=== PATIENT | female | born 1940 | race Caucasian/White ===

== ENCOUNTER 2020-02-17 07:22 | Outpatient (REF) | payer MEDICARE, SELFPAY ==
[2020-02-17 11:33] LABS: MANUAL DIFF FLAG NO
[2020-02-17 11:40] LABS: Basophils Percent Auto 0.7 % (0-2); Eosinophils Absolute Auto 0.1 X10*3/uL (0.0-0.4); Eosinophils Percent Auto 2.3 % (0-4); Hematocrit 43.1 % (37-47); Hemoglobin 13.9 g/dl (12.0-16.0); Imm Gran Abs Auto 0.02 X10*3/uL (0.00-0.03); Imm Gran Pct Auto 0.3 % (0.0-0.4); Lymphocytes Absolute Auto 2.1 X10*3/uL (1.2-4.9); Lymphocytes Percent Auto 33.5 % (20-40); Mean Corpuscular HGB Conc 32.3 g/dl (31.0-35.0); Mean Corpuscular Hemoglobin 33.3 pg (27.0-33.0); Mean Corpuscular Volume 103.1 fL (80-98); Mean Platelet Volume 11.2 fL (9.4-12.3); Monocytes Absolute Auto 0.5 X10*3/uL (0.1-1.2); Neutrophils Absolute Auto 3.4 X10*3/uL (2.0-8.3); Neutrophils Percent Auto 55.2 % (45-73); Platelet Count 276 X10*3/uL (160-400); Red Blood Count 4.18 X10*6/uL (4.20-5.50); Red Cell Distribution Width 12.4 % (11.0-16.0); White Blood Count 6.2 X10*3/uL (4.8-10.8)
[2020-02-17 12:07] LABS: Alanine Aminotransferase 15 U/L (0-31); Albumin Level 4.4 g/dL (3.5-5.0); Alkaline Phosphatase 83 U/L (39-117); Anion Gap 14 (12-20); Aspartate Amino Transferase 15 U/L (5-31); Bilirubin Total 0.5 mg/dL (0.0-1.0); Blood Urea Nitrogen 13 mg/dL (9-16); Calcium 9.7 mg/dL (8.4-10.2); Carbon Dioxide 32 mmol/L (22-29); Chloride 105 mmol/L (96-108); Cholesterol 204 mg/dL; Estimated Glomerular Filt Rate > 60; Glucose Random 99 mg/dL (60-115); HDL Cholesterol 63 mg/dL; LDL Cholesterol Calculated 104 mg/dl; Potassium 4.9 mmol/l (3.3-5.1); Sodium 146 mmol/L (135-145); Total Protein 6.8 g/dL (6.5-8.0); Triglycerides 187 mg/dL
[2020-02-17 12:10] LABS: Vitamin D 25-OH Total 35.4 ng/mL (>30)
== END 2020-02-17 07:23 | disposition home or self-care (01) ==
LOC: HO.HMGCLDS 07:22
PROVIDERS: PCP Internal Medicine Medical Oncology; Visit Provider Internal Medicine Medical Oncology
DX: E78.5 Hyperlipidemia, unspecified (principal); K21.9 Gastro-esophageal reflux disease without esophagitis; K58.9 Irritable bowel syndrome, unspecified
CPT/HCPCS: 36415; 80053; 80061; 82306; 85025

== ENCOUNTER 2020-02-24 11:48 | Outpatient (REF) | payer MEDICARE, SELFPAY ==
[2020-02-24 14:15] LABS: Free T4 (Free Thyroxine) 1.21 ng/dL (0.71-1.85)
== END 2020-02-24 11:49 | disposition home or self-care (01) ==
LOC: HO.10HDL 11:48
PROVIDERS: Visit Provider Internal Medicine Medical Oncology
DX: E78.5 Hyperlipidemia, unspecified (principal); E03.9 Hypothyroidism, unspecified; K21.9 Gastro-esophageal reflux disease without esophagitis; K44.9 Diaphragmatic hernia without obstruction or gangrene
CPT/HCPCS: 36415; 84439; 84443

== ENCOUNTER 2020-06-12 08:56 | Outpatient (REF) | payer MEDICARE, SELFPAY ==
[2020-06-12 09:31] LABS: MANUAL DIFF FLAG NO
[2020-06-12 09:38] LABS: Basophils Percent Auto 0.5 % (0-2); Eosinophils Absolute Auto 0.2 X10*3/uL (0.0-0.4); Eosinophils Percent Auto 4.1 % (0-4); Hematocrit 41.1 % (37-47); Hemoglobin 13.7 g/dl (12.0-16.0); Imm Gran Abs Auto 0.01 X10*3/uL (0.00-0.03); Imm Gran Pct Auto 0.2 % (0.0-0.4); Lymphocytes Absolute Auto 1.8 X10*3/uL (1.2-4.9); Mean Corpuscular HGB Conc 33.3 g/dl (31.0-35.0); Mean Corpuscular Hemoglobin 33.3 pg (27.0-33.0); Mean Corpuscular Volume 99.8 fL (80-98); Mean Platelet Volume 10.6 fL (9.4-12.3); Monocytes Absolute Auto 0.5 X10*3/uL (0.1-1.2); Monocytes Percent Auto 8.7 % (2-11); Neutrophils Absolute Auto 3.3 X10*3/uL (2.0-8.3); Neutrophils Percent Auto 55.5 % (45-73); Platelet Count 249 X10*3/uL (160-400); Red Blood Count 4.12 X10*6/uL (4.20-5.50); Red Cell Distribution Width 12.5 % (11.0-16.0); White Blood Count 5.9 X10*3/uL (4.8-10.8)
[2020-06-12 09:59] LABS: Alanine Aminotransferase 9 U/L (0-31); Albumin Level 4.2 g/dL (3.5-5.0); Alkaline Phosphatase 72 U/L (39-117); Anion Gap 11 (12-20); Aspartate Amino Transferase 13 U/L (5-31); Bilirubin Total 0.7 mg/dL (0.0-1.0); Blood Urea Nitrogen 16 mg/dL (9-16); Calcium 9.8 mg/dL (8.4-10.2); Carbon Dioxide 30 mmol/L (22-29); Chloride 105 mmol/L (96-108); Cholesterol 182 mg/dL; Estimated Glomerular Filt Rate > 60; Glucose Fasting 102 mg/dL (60-99); HDL Cholesterol 56 mg/dL; LDL Cholesterol Calculated 94 mg/dl; Potassium 4.4 mmol/L (3.3-5.1); Sodium 142 mmol/L (135-145); Total Protein 6.5 g/dL (6.5-8.0); Triglycerides 163 mg/dL
[2020-06-12 10:14] LABS: Free T4 (Free Thyroxine) 1.29 ng/dL (0.71-1.85); Thyroid Stimulating Hormone 0.11 uIU/mL (0.32-4.0)
== END 2020-06-12 08:57 | disposition home or self-care (01) ==
LOC: HO.LAB 08:56
PROVIDERS: PCP Internal Medicine Medical Oncology; Visit Provider Internal Medicine Medical Oncology
DX: E78.5 Hyperlipidemia, unspecified (principal); E03.9 Hypothyroidism, unspecified; K21.9 Gastro-esophageal reflux disease without esophagitis; K44.9 Diaphragmatic hernia without obstruction or gangrene
CPT/HCPCS: 36415; 80053; 80061; 84439; 84443; 85025

== ENCOUNTER 2020-07-01 08:18 | Outpatient (REF) | payer MEDICARE, SELFPAY ==
--- NOTE | ~2020-07-01 | US_ITS ---
EXAMINATION: US ABDOMEN COMPLETE CLINICAL INFORMATION: Right upper quadrant abdominal pain. COMPARISON: CT abdomen and pelvis with contrast dated 12/27/2015. Ultrasound abdomen complete dated 12/23/2015 and 10/07/2014. TECHNIQUE: Real-time imaging of the abdominal viscera. FINDINGS: PANCREAS: The main pancreatic duct is slightly dilated measuring 0.4 cm. Pancreas is otherwise normal. This is similar to previous CT scan from December 2015. ABDOMINAL AORTA: The proximal, mid, and distal segments are normal in caliber. INFERIOR VENA CAVA: Visualized portions are normal. LIVER: Normal. The liver is normal in size. The liver contour is normal. Parenchymal echogenicity is normal. No focal hepatic lesion. There is no intrahepatic biliary duct dilatation seen. GALLBLADDER: Normal. The gallbladder is physiologically distended without evidence of stones, sludge, polyps, wall thickening or pericholecystic fluid. COMMON BILE DUCT: Normal in caliber measuring 0.58 cm in diameter. RIGHT KIDNEY: Normal. No hydronephrosis. No renal calculi or focal parenchymal lesions. The kidney measures 10.0 cm in maximum dimension. LEFT KIDNEY: Normal. No hydronephrosis. No renal calculi or focal parenchymal lesions. The kidney measures 10.1 cm in maximum dimension. SPLEEN: Normal. The spleen measures 10.3 cm in maximum dimension. FREE FLUID: None. US/US abdomen complete IMPRESSION: Slightly prominent main pancreatic duct similar to previous CT scan December 2015. Otherwise unremarkable exam.
== END 2020-07-01 08:19 | disposition home or self-care (01) ==
LOC: HO.HMGCX 08:18
PROVIDERS: Visit Provider Internal Medicine Medical Oncology
DX: R10.11 Right upper quadrant pain (principal)
CPT/HCPCS: 76700

== ENCOUNTER 2020-07-28 10:25 | Outpatient (REF) | payer MEDICARE, SELFPAY ==
[2020-07-28 13:13] LABS: Erythrocyte Sedimentation Rate 9 MM/HR (0-20)
== END 2020-07-28 10:26 | disposition home or self-care (01) ==
LOC: HO.LAB 10:25
PROVIDERS: PCP Internal Medicine Medical Oncology; Referring Provider Ophthalmology Glaucoma Specialist; Visit Provider Internal Medicine Medical Oncology
DX: E78.5 Hyperlipidemia, unspecified (principal)
CPT/HCPCS: 36415; 85652

== ENCOUNTER 2020-08-04 09:34 | Outpatient (REF) | payer MEDICARE, SELFPAY ==
--- NOTE | ~2020-08-04 | MM_ITS ---
EXAMINATION: MM SCREENING DIGITAL BREAST TOMOSYNTHESIS, BILATERAL CLINICAL INFORMATION: Screening. Asymptomatic. The lifetime risk of breast cancer based on the Tyrer-Cuzick Model is 1.7%. COMPARISON: Mammography: August 02, 2019 and studies dating back to January 08, 2015 TECHNIQUE: Digital breast tomosynthesis is performed in both the craniocaudal and mediolateral oblique views along with computer-aided detection (CAD). Synthesized 2D images are generated from the tomosynthesis. FINDINGS: There are scattered areas of fibroglandular density (ACR BI-RADS breast composition Category b). There are no significant masses, abnormal calcifications, or other abnormalities. MM/MM tomosynthesis screening BI IMPRESSION: There are no significant changes from prior study. ASSESSMENT: BI-RADS 1: Negative RECOMMENDATION: Routine annual mammography screening. This patient's information was entered into a reminder system with a target due date for their next mammogram.
== END 2020-08-04 09:35 | disposition home or self-care (01) ==
LOC: HO.MAMMO 09:34
PROVIDERS: Visit Provider Internal Medicine Medical Oncology
DX: Z12.31 Encounter for screening mammogram for malignant neoplasm of breast (principal)
CPT/HCPCS: 77063; 77067

== ENCOUNTER 2020-10-19 07:27 | Outpatient (REF) | payer MEDICARE, SELFPAY ==
[2020-10-19 11:25] LABS: MANUAL DIFF FLAG NO
[2020-10-19 11:39] LABS: Basophils Percent Auto 0.3 % (0-2); Eosinophils Absolute Auto 0.1 X10*3/uL (0.0-0.4); Eosinophils Percent Auto 1.9 % (0-4); Hematocrit 40.5 % (37-47); Hemoglobin 13.4 g/dl (12.0-16.0); Imm Gran Abs Auto 0.01 X10*3/uL (0.00-0.03); Imm Gran Pct Auto 0.2 % (0.0-0.4); Lymphocytes Absolute Auto 1.9 X10*3/uL (1.2-4.9); Lymphocytes Percent Auto 31.6 % (20-40); Mean Corpuscular HGB Conc 33.1 g/dl (31.0-35.0); Mean Corpuscular Hemoglobin 32.6 pg (27.0-33.0); Mean Corpuscular Volume 98.5 fL (80-98); Mean Platelet Volume 11.4 fL (9.4-12.3); Monocytes Absolute Auto 0.5 X10*3/uL (0.1-1.2); Monocytes Percent Auto 7.6 % (2-11); Neutrophils Absolute Auto 3.5 X10*3/uL (2.0-8.3); Neutrophils Percent Auto 58.4 % (45-73); Platelet Count 243 X10*3/uL (160-400); Red Blood Count 4.11 X10*6/uL (4.20-5.50); Red Cell Distribution Width 12.4 % (11.0-16.0); White Blood Count 5.9 X10*3/uL (4.8-10.8)
[2020-10-19 11:54] LABS: Alanine Aminotransferase 10 U/L (0-31); Albumin Level 4.1 g/dL (3.5-5.0); Alkaline Phosphatase 69 U/L (39-117); Anion Gap 13 (12-20); Aspartate Amino Transferase 14 U/L (5-31); Blood Urea Nitrogen 15 mg/dL (9-16); Calcium 9.8 mg/dL (8.4-10.2); Carbon Dioxide 27 mmol/L (22-29); Chloride 106 mmol/L (96-108); Cholesterol 179 mg/dL; Estimated Glomerular Filt Rate > 60; Glucose Fasting 102 mg/dL (60-99); HDL Cholesterol 55 mg/dL; LDL Cholesterol Calculated 99 mg/dl; Potassium 4.3 mmol/L (3.3-5.1); Sodium 142 mmol/L (135-145); Total Protein 6.3 g/dL (6.5-8.0); Triglycerides 128 mg/dL
[2020-10-19 12:13] LABS: Bilirubin Total 0.6 mg/dL (0.0-1.0)
[2020-10-19 12:16] LABS: Free T4 (Free Thyroxine) 1.09 ng/dL (0.71-1.85); Thyroid Stimulating Hormone 0.09 uIU/mL (0.32-4.0)
== END 2020-10-19 07:28 | disposition home or self-care (01) ==
LOC: HO.HMGCLDS 07:27
PROVIDERS: PCP Internal Medicine Medical Oncology; Visit Provider Internal Medicine Medical Oncology
DX: E78.5 Hyperlipidemia, unspecified (principal); E03.9 Hypothyroidism, unspecified; K57.92 Diverticulitis of intestine, part unspecified, without perforation or abscess without bleeding; K58.9 Irritable bowel syndrome, unspecified
CPT/HCPCS: 36415; 80053; 80061; 84439; 84443; 85025

== ENCOUNTER 2020-11-07 11:56 | Outpatient (REF) | payer MEDICARE, SELFPAY ==
[2020-11-07 13:41] LABS: Appearance Urine HAZY; Color Urine YELLOW; Glucose Urine UA NEG (NEG); Leukocyte Esterase Urine 1+ (NEG); Nitrite Urine NEG (NEG); Specific Gravity - Urine 1.015 (1.005-1.025); Urine Blood NEG (NEG); Urine Ketones NEG (NEG); Urine Protein NEG (NEG-TRACE)
[2020-11-07 13:49] LABS: RBC Urine 0-2 /HPF (0)
[2020-11-07 13:50] LABS: Amorphous Sediment Urine TRACE /LPF; Bacteria Urine 2+ /LPF; Mucus Urine 1+ /LPF; Squamous Epithelial Cell Urine 3+ /LPF
== END 2020-11-07 11:57 | disposition home or self-care (01) ==
LOC: HO.HMGCLNP 11:56
PROVIDERS: Visit Provider Physician Assistant Medical
DX: R19.7 Diarrhea, unspecified (principal)
CPT/HCPCS: 81001

== ENCOUNTER 2020-11-10 11:58 | Outpatient (REF) | payer MEDICARE, SELFPAY ==
[2020-11-10 14:20] LABS: Appearance Urine CLEAR; Color Urine STRAW; Glucose Urine UA NEG (NEG); Leukocyte Esterase Urine NEG (NEG); Nitrite Urine NEG (NEG); Specific Gravity - Urine <= 1.005 (1.005-1.025); Urine Blood NEG (NEG); Urine Ketones NEG (NEG); Urine Protein NEG (NEG-TRACE)
== END 2020-11-10 11:59 | disposition home or self-care (01) ==
LOC: HO.HMGCLDS 11:58
PROVIDERS: Physician Assistant Medical; PCP Internal Medicine Medical Oncology; Visit Provider Internal Medicine Medical Oncology
DX: Z13.89 Encounter for screening for other disorder (principal)
CPT/HCPCS: 81003; 87086

== ENCOUNTER 2020-11-10 15:25 | Emergency (ER) | payer MEDICARE, SELFPAY ==
[2020-11-10 15:48] VITALS: BP 149/74; PULSE 70; RESP 18; TEMP 36.8; O2SAT 95; BMI 28.1
[2020-11-10 16:20] LABS: MANUAL DIFF FLAG NO
[2020-11-10 16:22] LABS: Appearance Urine CLEAR; Color Urine STRAW; Glucose Urine UA NEG (NEG); Leukocyte Esterase Urine NEG (NEG); Nitrite Urine NEG (NEG); Specific Gravity - Urine <= 1.005 (1.005-1.025); Urine Blood NEG (NEG); Urine Ketones NEG (NEG); Urine Protein NEG (NEG-TRACE)
[2020-11-10 16:22] LABS: Basophils Percent Auto 0.4 % (0-2); Eosinophils Absolute Auto 0.1 X10*3/uL (0.0-0.4); Eosinophils Percent Auto 1.5 % (0-4); Hematocrit 36.6 % (37-47); Hemoglobin 12.5 g/dl (12.0-16.0); Imm Gran Abs Auto 0.02 X10*3/uL (0.00-0.03); Imm Gran Pct Auto 0.3 % (0.0-0.4); Lymphocytes Absolute Auto 1.8 X10*3/uL (1.2-4.9); Lymphocytes Percent Auto 22.4 % (20-40); Mean Corpuscular HGB Conc 34.2 g/dl (31.0-35.0); Mean Corpuscular Hemoglobin 32.6 pg (27.0-33.0); Mean Corpuscular Volume 95.6 fL (80-98); Mean Platelet Volume 10.7 fL (9.4-12.3); Monocytes Absolute Auto 0.7 X10*3/uL (0.1-1.2); Neutrophils Absolute Auto 5.2 X10*3/uL (2.0-8.3); Neutrophils Percent Auto 66.4 % (45-73); Platelet Count 251 X10*3/uL (160-400); Red Blood Count 3.83 X10*6/uL (4.20-5.50); Red Cell Distribution Width 12.2 % (11.0-16.0); White Blood Count 7.9 X10*3/uL (4.8-10.8)
[2020-11-10 16:38] LABS: Alanine Aminotransferase 7 U/L (0-31); Albumin Level 4.1 g/dL (3.5-5.0); Alkaline Phosphatase 73 U/L (39-117); Anion Gap 10 (12-20); Aspartate Amino Transferase 11 U/L (5-31); Bilirubin Total 0.3 mg/dL (0.0-1.0); Blood Urea Nitrogen 8 mg/dL (9-16); Calcium 9.4 mg/dL (8.4-10.2); Carbon Dioxide 28 mmol/L (22-29); Chloride 107 mmol/L (96-108); Creatinine Clr Calc Pharmacy 59.3; Estimated Glomerular Filt Rate > 60; Glucose Random 114 mg/dL (60-115); Potassium 4.1 mmol/L (3.3-5.1); Sodium 141 mmol/L (135-145); Total Protein 6.4 g/dL (6.5-8.0)
--- NOTE | 2020-11-10 19:52 | ED.ABDPAIN ---
HPI - Abdominal Pain General Chief Complaint: Abdominal Pain Stated Complaint: STOMACH PAIN DIARRHEA Time Seen by Provider: 11/10/20 19:52 Source: patient Mode of arrival: ambulatory Limitations: no limitations History of Present Illness HPI narrative: Patient complain lower abdominal cramps with diarrhea for last 1 week with history of IBS no nausea no vomiting no fever or chills patient tried Imodium without much relief no fever no chills no blood in the stool Related Data Previous Rx's Medication Instructions Recorded loperamide 2 mg capsule 2 mg PO QID PRN #30 cap 11/07/20 dicyclomine 20 mg tablet 20 mg PO QID PRN #20 tab 11/10/20 Allergies Allergy/AdvReac Type Severity Reaction Status Date / Time fentanyl Allergy Unknown Patient Verified 11/10/20 15:48 stated her heart stopped morphine Allergy Unknown Unknown Verified 11/10/20 15:48 No Known Allergies Allergy Verified 11/10/20 15:48 Review of Systems Review of Systems Yes all other systems are reviewed and are negative Physical Exam Vital Signs: Vital Signs: Last Vital Signs Temp 98.2 F 11/10/20 21:20 Pulse 60 11/10/20 21:20 Resp 16 11/10/20 21:20 BP 164/67 H 11/10/20 21:20 Pulse Ox 97 11/10/20 21:20 Body Mass Index 28.1 Appearance: Alert. Oriented X3. No acute distress. Eyes: No pallor or icterus ENT: Pharynx normal. Oral Mucosa moist Neck: Normal inspection. Neck supple. CVS: Normal heart rate and rhythm. Pulses normal. Respiratory: No respiratory distress. Equal air entry bilateral, no wheezing/rales/rhonchi Abdomen: Soft diffuse mild tenderness. Bowel sounds are present, no mass palpable, no CVA tenderness Skin: Skin warm and dry. Normal skin color. Normal skin turgor. Extremities: No lower extremity edema. No calf tenderness Neuro: Oriented X 3. Course Reevaluation(s) Reevaluation #1: Patient feeling much better now taking p.o. fluids cramping has decreased after taking Bentyl discharge patient home on Bentyl. No bowel movement in the ER Time: 21:43 MDM - Abdominal Pain Lab Data Attestation: I reviewed the patient's lab results. Result diagrams: 11/10/20 16:09 11/10/20 16:09 Labs: Lab Results 11/10/20 11/10/20 11/10/20 Range/Units 16:05 16:09 16:09 WBC 7.9 (4.8-10.8) X10*3/uL RBC 3.83 L (4.20-5.50) X10*6/uL Hgb 12.5 (12.0-16.0) g/dl Hct 36.6 L (37-47) % MCV 95.6 (80-98) fL MCH 32.6 (27.0-33.0) pg MCHC 34.2 (31.0-35.0) g/dl RDW 12.2 (11.0-16.0) % Plt Count 251 (160-400) X10*3/uL MPV 10.7 (9.4-12.3) fL Immature Gran % (Auto) 0.3 (0.0-0.4) % Neut % (Auto) 66.4 (45-73) % Lymph % (Auto) 22.4 (20-40) % [place] % (Auto) 9.0 (2-11) % Eos % (Auto) 1.5 (0-4) % Baso % (Auto) 0.4 (0-2) % Lymph # (Auto) 1.8 (1.2-4.9) X10*3/uL [place] # (Auto) 0.7 (0.1-1.2) X10*3/uL Eos # (Auto) 0.1 (0.0-0.4) X10*3/uL Baso # (Auto) 0.0 (0.0-0.2) X10*3/uL Abs Immat Gran (auto) 0.02 (0.00-0.03) X10*3/uL Absolute Neuts (auto) 5.2 (2.0-8.3) X10*3/uL Absolute Nucleated RBC 0.000 (0.0-0.012) X10*3/uL Nucleated RBC % (auto) 0.0 (0.0-0.2) /100WBC Sodium 141 (135-145) mmol/L Potassium 4.1 (3.3-5.1) mmol/L Chloride 107 (96-108) mmol/L Carbon Dioxide 28 (22-29) mmol/L Anion Gap 10 L (12-20) BUN 8 L (9-16) mg/dL Creatinine 0.80 (0.5-1.4) mg/dL Estim Creat Clear Calc 59.3 Estimated GFR > 60 Random Glucose 114 (60-115) mg/dL Calcium 9.4 (8.4-10.2) mg/dL Total Bilirubin 0.3 (0.0-1.0) mg/dL AST 11 (5-31) U/L ALT 7 (0-31) U/L Alkaline Phosphatase 73 (39-117) U/L Total Protein 6.4 L (6.5-8.0) g/dL Albumin 4.1 (3.5-5.0) g/dL Urine Color STRAW Urine Appearance CLEAR Urine pH 6.0 (5.0-8.0) Ur Specific Orange <= 1.005 (1.005-1.025) Urine Protein NEG (NEG-TRACE) MG/DL Urine Glucose (UA) NEG (NEG) MG/DL Urine Ketones NEG (NEG) MG/DL Urine Blood NEG (NEG) Urine Nitrite NEG (NEG) Ur Leukocyte Esterase NEG (NEG) Discharge Plan Discharge Clinical Impression: Irritable bowel syndrome Qualifiers: Irritable bowel syndrome type: with diarrhea Qualified Code(s): K58.0 - Irritable bowel syndrome with diarrhea Patient Disposition: Home, Self-Care Instructions: Irritable Bowel Syndrome (ED) Additional Instructions: Drink plenty of fluids and take medication as prescribed and 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 Prescriptions: New dicyclomine 20 mg tablet 20 mg PO QID PRN (Reason: abdominal pain) Qty: 20 RF: 0 No Action loperamide 2 mg capsule 2 mg PO QID PRN (Reason: loose stool) Qty: 30 RF: 0 Interventions: ED Discharge Assessment Last Done: 11/10/20 21:54 Discharge Date/Time: 11/10/20 22:04 [facility] Past Medical History Medical History Diverticulitis IBS (irritable bowel syndrome) Social History Social History Alcohol intake: current Alcohol intake frequency: holidays/special occasions only Alcohol type: wine Patient Tobacco Use Status: Former Tobacco user Use of substances other than those prescribed or required for medical reasons: No Advance Directives: No Advance Directives Information Provided: Yes
[2020-11-10 20:00] VITALS: BP 170/76; PULSE 69; RESP 18; TEMP 36.8; O2SAT 98
[2020-11-10] MEDS: Dicyclomine HCl 10 MG CAPSULE 20 MG PO (20:10)
--- NOTE | 2020-11-10 20:10 | PC.NURSE ---
patient a&ox3, vitals stable, pt c/o pain to mid abdomen, pt medicated per order, will continue to monitor.
[2020-11-10 21:20] VITALS: BP 164/67; PULSE 60; RESP 16; TEMP 36.8; O2SAT 97
--- NOTE | 2020-11-10 21:46 | PC.NURSE ---
patient a&ox3, pt states her abd pain is unchanged she still has 5/10 pain, pt states it waxes and wanes. son is at bedside, will continue to monitor.
== END 2020-11-10 22:04 | disposition home or self-care (01) ==
PROVIDERS: Emergency Provider Internal Medicine; PCP Internal Medicine Medical Oncology
DX: K58.0 Irritable bowel syndrome with diarrhea (principal); R10.9 Unspecified abdominal pain; R19.7 Diarrhea, unspecified; Z79.899 Other long term (current) drug therapy; Z87.891 Personal history of nicotine dependence
CPT/HCPCS: 36415; 80053; 81003; 85025; 87086; 99283; 99284

== ENCOUNTER 2020-11-27 10:12 | Outpatient (REF) | payer MEDICARE, SELFPAY ==
[2020-11-27 13:43] LABS: Basophils Percent Auto 0.5 % (0-2); Eosinophils Absolute Auto 0.1 X10*3/uL (0.0-0.4); Eosinophils Percent Auto 1.4 % (0-4); Hematocrit 36.4 % (37-47); Hemoglobin 12.2 g/dl (12.0-16.0); Imm Gran Abs Auto 0.02 X10*3/uL (0.00-0.03); Imm Gran Pct Auto 0.3 % (0.0-0.4); Lymphocytes Absolute Auto 1.5 X10*3/uL (1.2-4.9); Lymphocytes Percent Auto 22.7 % (20-40); MANUAL DIFF FLAG NO; Mean Corpuscular HGB Conc 33.5 g/dl (31.0-35.0); Mean Corpuscular Hemoglobin 32.5 pg (27.0-33.0); Mean Corpuscular Volume 97.1 fL (80-98); Mean Platelet Volume 11.3 fL (9.4-12.3); Monocytes Absolute Auto 0.5 X10*3/uL (0.1-1.2); Monocytes Percent Auto 7.9 % (2-11); Neutrophils Absolute Auto 4.3 X10*3/uL (2.0-8.3); Neutrophils Percent Auto 67.2 % (45-73); Platelet Count 322 X10*3/uL (160-400); Red Blood Count 3.75 X10*6/uL (4.20-5.50); Red Cell Distribution Width 12.8 % (11.0-16.0); White Blood Count 6.4 X10*3/uL (4.8-10.8)
[2020-11-27 14:24] LABS: Alanine Aminotransferase 12 U/L (0-31); Alkaline Phosphatase 82 U/L (39-117); Anion Gap 13 (12-20); Aspartate Amino Transferase 12 U/L (5-31); Bilirubin Total 0.5 mg/dL (0.0-1.0); Blood Urea Nitrogen 11 mg/dL (9-16); Calcium 9.7 mg/dL (8.4-10.2); Carbon Dioxide 27 mmol/L (22-29); Chloride 105 mmol/L (96-108); Cholesterol 160 mg/dL; Estimated Glomerular Filt Rate > 60; Glucose Fasting 97 mg/dL (60-99); HDL Cholesterol 43 mg/dL; LDL Cholesterol Calculated 88 mg/dl; Potassium 4.3 mmol/L (3.3-5.1); Sodium 141 mmol/L (135-145); Total Protein 6.4 g/dL (6.5-8.0); Triglycerides 149 mg/dL
[2020-11-27 14:30] LABS: Erythrocyte Sedimentation Rate 13 MM/HR (0-20)
[2020-11-27 14:46] LABS: Thyroid Stimulating Hormone 1.22 uIU/mL (0.32-4.0)
== END 2020-11-27 10:13 | disposition home or self-care (01) ==
LOC: HO.10HDL 10:12
PROVIDERS: Visit Provider Internal Medicine Medical Oncology
DX: E78.5 Hyperlipidemia, unspecified (principal); E66.3 Overweight
CPT/HCPCS: 36415; 80053; 80061; 84439; 84443; 85025; 85652

== ENCOUNTER 2020-12-04 10:49 | Outpatient (REF) | payer MEDICARE, SELFPAY ==
[2020-12-04 15:12] LABS: CDiff Gene PCR NEGATIVE (Negative)
[2020-12-04 15:45] LABS: Leukocytes Stool Qualitative NEGATIVE (NEGATIVE)
== END 2020-12-04 10:50 | disposition home or self-care (01) ==
LOC: HO.HMGCLNP 10:49
PROVIDERS: Visit Provider Internal Medicine
DX: R19.7 Diarrhea, unspecified (principal)
CPT/HCPCS: 87045; 87046; 87177; 87209; 87329; 87493; 89055

== ENCOUNTER 2021-01-22 07:59 | Outpatient (REF) | payer MEDICARE, SELFPAY ==
[2021-01-22 11:24] LABS: MANUAL DIFF FLAG NO
[2021-01-22 11:36] LABS: Basophils Percent Auto 0.3 % (0-2); Eosinophils Percent Auto 0.1 % (0-4); Hematocrit 42.7 % (37.0-47.0); Hemoglobin 13.8 g/dl (12.0-16.0); Imm Gran Abs Auto 0.02 X10*3/uL (0.00-0.03); Imm Gran Pct Auto 0.3 % (0.0-0.4); Lymphocytes Absolute Auto 2.6 X10*3/uL (1.2-4.9); Lymphocytes Percent Auto 36.3 % (20-40); Mean Corpuscular HGB Conc 32.3 g/dl (31.0-35.0); Mean Corpuscular Hemoglobin 32.2 pg (27.0-33.0); Mean Corpuscular Volume 99.8 fL (80.0-98.0); Mean Platelet Volume 11.5 fL (9.4-12.3); Monocytes Absolute Auto 0.5 X10*3/uL (0.1-1.2); Monocytes Percent Auto 6.3 % (2-11); Neutrophils Absolute Auto 4.1 x10*3/uL (2.0-8.3); Neutrophils Percent Auto 56.7 % (45-73); Platelet Count 257 X10*3/uL (160-400); Red Blood Count 4.28 X10*6/uL (4.20-5.50); Red Cell Distribution Width 13.2 % (11.0-16.0); White Blood Count 7.3 X10*3/uL (4.8-10.8)
[2021-01-22 11:57] LABS: Alanine Aminotransferase 16 U/L (0-31); Albumin Level 4.4 g/dL (3.5-5.0); Alkaline Phosphatase 72 U/L (39-117); Anion Gap 11 (12-20); Aspartate Amino Transferase 12 U/L (5-31); Bilirubin Total 0.7 mg/dL (0.0-1.0); Blood Urea Nitrogen 14 mg/dL (9-16); Calcium 10.5 mg/dL (8.4-10.2); Carbon Dioxide 29 mmol/L (22-29); Chloride 105 mmol/L (96-108); Cholesterol 192 mg/dL; Estimated Glomerular Filt Rate > 60; Glucose Fasting 104 mg/dL (60-99); HDL Cholesterol 62 mg/dL; LDL Cholesterol Calculated 105 mg/dl; Potassium 4.9 mmol/L (3.3-5.1); Sodium 140 mmol/L (135-145); Total Protein 6.9 g/dL (6.5-8.0); Triglycerides 126 mg/dL
[2021-01-22 12:16] LABS: Thyroid Stimulating Hormone 0.31 uIU/mL (0.32-4.0)
== END 2021-01-22 08:00 | disposition home or self-care (01) ==
LOC: HO.HMGCLDS 07:59
PROVIDERS: PCP Internal Medicine Medical Oncology; Visit Provider Internal Medicine Medical Oncology
DX: E78.5 Hyperlipidemia, unspecified (principal); E03.9 Hypothyroidism, unspecified
CPT/HCPCS: 36415; 80053; 80061; 84443; 85025

== ENCOUNTER 2021-03-04 10:32 | Outpatient (REF) | payer MEDICARE, SELFPAY ==
--- NOTE | ~2021-03-04 | CT_ITS ---
EXAMINATION: CT SINUS WITHOUT CONTRAST CLINICAL INFORMATION: Sinonasal polyp, deviated septum. COMPARISON: None TECHNIQUE: Axial 2 mm thin and reformatted 2 mm thin sagittal and coronal images of sinuses were obtained without contrast. This CT examination was performed using dose optimization techniques as appropriate, variously including the following: *Automated exposure control *Adjustment of mA and/or kV according to patient size (this includes techniques or standardized protocols for targeted exams where dose is matched to indication/reason for exam; i.e. extremities or head) *Use of iterative reconstruction technique DLP: 88 mGy-cm FINDINGS: FRONTAL SINUSES AND DRAINAGE PATHWAYS: Normal. MAXILLARY SINUSES AND DRAINAGE PATHWAYS: There are minimal air-fluid levels bilateral maxillary sinuses. The drainage pathway is widely patent. The infundibula are patent. ETHMOID SINUSES: The ethmoid roofs are symmetric, with olfactory fossa depth of 0.35 cm on the right and 0.47 cm on the left. SPHENOID SINUSES AND DRAINAGE PATHWAYS: There is mucoperiosteal thickening left sphenoid sinus. The right sphenoid sinus is well aerated. The sphenoid ostia are patent. The carotid canals are covered by bone. NASAL CAVITY/NASOPHARYNX: The nasal cavity is clear. There is no nasal septal deviation/spurring. The nasopharynx is symmetric. ADDITIONAL RELEVANT FINDINGS: No periapical disease is seen. There is mild loss of the TM joint space with minimal medial periarticular spurring. No bony erosive changes seen. The orbits and skull base soft tissues are unremarkable. The middle ear cavities and mastoid air cells are clear. Limited evaluation demonstrates no acute intracranial findings. CT/CT sinus wo con IMPRESSION: Minimal air-fluid levels in bilateral maxillary and left sphenoid sinuses suggestive of acute sinusitis. All sinus drainage pathways are widely patent. No bony abnormality is seen.
== END 2021-03-04 10:33 | disposition home or self-care (01) ==
LOC: HO.CT 10:32
PROVIDERS: Visit Provider Otolaryngology
DX: J34.2 Deviated nasal septum (principal); J33.8 Other polyp of sinus
CPT/HCPCS: 70486

== ENCOUNTER 2021-04-26 07:38 | Outpatient (REF) | payer MEDICARE, SELFPAY ==
[2021-04-26 11:42] LABS: MANUAL DIFF FLAG NO
[2021-04-26 11:54] LABS: Basophils Percent Auto 0.3 % (0-2); Eosinophils Absolute Auto 0.1 X10*3/uL (0.0-0.4); Eosinophils Percent Auto 1.9 % (0-4); Hematocrit 41.2 % (37.0-47.0); Hemoglobin 13.4 g/dl (12.0-16.0); Imm Gran Abs Auto 0.02 X10*3/uL (0.00-0.03); Imm Gran Pct Auto 0.3 % (0.0-0.4); Lymphocytes Absolute Auto 2.2 X10*3/uL (1.2-4.9); Lymphocytes Percent Auto 38.4 % (20-40); Mean Corpuscular HGB Conc 32.5 g/dl (31.0-35.0); Mean Corpuscular Hemoglobin 32.8 pg (27.0-33.0); Mean Corpuscular Volume 100.7 fL (80.0-98.0); Mean Platelet Volume 11.5 fL (9.4-12.3); Monocytes Absolute Auto 0.4 X10*3/uL (0.1-1.2); Monocytes Percent Auto 6.7 % (2-11); Neutrophils Percent Auto 52.4 % (45-73); Platelet Count 225 X10*3/uL (160-400); Red Blood Count 4.09 X10*6/uL (4.20-5.50); Red Cell Distribution Width 13.3 % (11.0-16.0); White Blood Count 5.8 X10*3/uL (4.8-10.8)
[2021-04-26 12:12] LABS: Alanine Aminotransferase 17 U/L (0-31); Alkaline Phosphatase 72 U/L (39-117); Anion Gap 11 (12-20); Aspartate Amino Transferase 14 U/L (5-31); Bilirubin Total 0.5 mg/dL (0.0-1.0); Blood Urea Nitrogen 13 mg/dL (9-16); Calcium 9.4 mg/dL (8.4-10.2); Carbon Dioxide 28 mmol/L (22-29); Chloride 105 mmol/L (96-108); Cholesterol 167 mg/dL; Estimated Glomerular Filt Rate > 60; Glucose Fasting 97 mg/dL (60-99); HDL Cholesterol 53 mg/dL; LDL Cholesterol Calculated 90 mg/dl; Potassium 4.1 mmol/L (3.3-5.1); Sodium 140 mmol/L (135-145); Total Protein 6.2 g/dL (6.5-8.0); Triglycerides 120 mg/dL
[2021-04-26 12:20] LABS: Free T4 (Free Thyroxine) 1.14 ng/dL (0.71-1.85)
== END 2021-04-26 07:39 | disposition home or self-care (01) ==
LOC: HO.HMGCLDS 07:38
PROVIDERS: Visit Provider Internal Medicine Medical Oncology
DX: E78.5 Hyperlipidemia, unspecified (principal); E03.9 Hypothyroidism, unspecified
CPT/HCPCS: 36415; 80053; 80061; 84439; 84443; 85025

== ENCOUNTER 2021-07-27 06:40 | Outpatient (REF) | payer MEDICARE, SELFPAY ==
[2021-07-27 11:29] LABS: MANUAL DIFF FLAG NO
[2021-07-27 11:48] LABS: Basophils Percent Auto 0.6 % (0-2); Eosinophils Absolute Auto 0.1 X10*3/uL (0.0-0.4); Eosinophils Percent Auto 1.9 % (0-4); Hemoglobin 13.3 g/dl (12.0-16.0); Imm Gran Abs Auto 0.01 X10*3/uL (0.00-0.03); Imm Gran Pct Auto 0.2 % (0.0-0.4); Lymphocytes Absolute Auto 2.1 X10*3/uL (1.2-4.9); Mean Corpuscular HGB Conc 32.4 g/dl (31.0-35.0); Mean Corpuscular Hemoglobin 33.1 pg (27.0-33.0); Mean Platelet Volume 11.5 fL (9.4-12.3); Monocytes Absolute Auto 0.4 X10*3/uL (0.1-1.2); Monocytes Percent Auto 7.8 % (2-11); Neutrophils Absolute Auto 2.2 x10*3/uL (2.0-8.3); Neutrophils Percent Auto 45.5 % (45-73); Platelet Count 225 X10*3/uL (160-400); Red Blood Count 4.02 X10*6/uL (4.20-5.50); Red Cell Distribution Width 12.5 % (11.0-16.0); White Blood Count 4.9 X10*3/uL (4.8-10.8)
[2021-07-27 12:26] LABS: Free T4 (Free Thyroxine) 1.09 ng/dL (0.71-1.85); Thyroid Stimulating Hormone 0.45 uIU/mL (0.32-4.0)
[2021-07-27 13:13] LABS: Alanine Aminotransferase 16 U/L (0-31); Alkaline Phosphatase 67 U/L (39-117); Anion Gap 11 (12-20); Aspartate Amino Transferase 17 U/L (5-31); Bilirubin Total 0.3 mg/dL (0.0-1.0); Blood Urea Nitrogen 18 mg/dL (9-16); Calcium 9.2 mg/dL (8.4-10.2); Carbon Dioxide 29 mmol/L (22-29); Chloride 108 mmol/L (96-108); Cholesterol 182 mg/dL; Estimated Glomerular Filt Rate > 60; Glucose Fasting 104 mg/dL (60-99); HDL Cholesterol 56 mg/dL; LDL Cholesterol Calculated 103 mg/dl; Potassium 4.6 mmol/L (3.3-5.1); Sodium 143 mmol/L (135-145); Total Protein 6.3 g/dL (6.5-8.0); Triglycerides 118 mg/dL
== END 2021-07-27 06:41 | disposition home or self-care (01) ==
LOC: HO.HMGCLDS 06:40
PROVIDERS: Visit Provider Internal Medicine Medical Oncology
DX: E78.5 Hyperlipidemia, unspecified (principal); E03.9 Hypothyroidism, unspecified; E83.52 Hypercalcemia
CPT/HCPCS: 36415; 80053; 80061; 84439; 84443; 85025

== ENCOUNTER 2021-08-10 08:58 | Outpatient (REF) | payer MEDICARE, SELFPAY ==
--- NOTE | ~2021-08-10 | MM_ITS ---
EXAMINATION: MM SCREENING DIGITAL BREAST TOMOSYNTHESIS, BILATERAL CLINICAL INFORMATION: Screening. Asymptomatic. The lifetime risk of breast cancer based on the Tyrer-Cuzick Model is 2%. COMPARISON: Mammography: 08/04/2020, 08/02/2019, 05/24/2018 TECHNIQUE: Digital breast tomosynthesis is performed in both the craniocaudal and mediolateral oblique views along with computer-aided detection (CAD). Synthesized 2D images are generated from the tomosynthesis. FINDINGS: There are scattered areas of fibroglandular density (ACR BI-RADS breast composition Category b). There are no significant masses, abnormal calcifications, or other abnormalities. Parenchymal pattern is similar to prior exams. There are small dermal lesions overlying the bilateral posterior inferior medial breasts. No significant changes from prior studies. MM/MM tomosynthesis screening BI IMPRESSION: No mammographic evidence of malignancy. ASSESSMENT: BI-RADS 2: Benign RECOMMENDATION: Routine annual mammography screening. This patient's information was entered into a reminder system with a target due date for their next mammogram.
== END 2021-08-10 08:59 | disposition home or self-care (01) ==
LOC: HO.MAMMO 08:58
PROVIDERS: Visit Provider Internal Medicine Medical Oncology
DX: Z12.31 Encounter for screening mammogram for malignant neoplasm of breast (principal)
CPT/HCPCS: 77063; 77067

== ENCOUNTER 2021-08-20 10:09 | Outpatient (REF) | payer MEDICARE, SELFPAY ==
--- NOTE | ~2021-08-20 | XR_ITS ---
EXAMINATION: XR SHOULDER, LEFT CLINICAL INFORMATION: Sprain of the left shoulder joint COMPARISON: None TECHNIQUE: Four views of the left shoulder. FINDINGS: No fracture or dislocation. The glenohumeral joint is well aligned. Mild narrowing of the joint space with small osteophytes. The acromial clavicular joint is intact. The visualized lung is clear. The visualized ribs are intact. XR/XR shoulder LT min 2V IMPRESSION: Mild degenerative change at the glenohumeral joint.
== END 2021-08-20 10:10 | disposition home or self-care (01) ==
LOC: HO.HMGCX 10:09
PROVIDERS: Visit Provider Internal Medicine
DX: S43.402A Unspecified sprain of left shoulder joint, initial encounter (principal); X58.XXXA Exposure to other specified factors, initial encounter; Y93.9 Activity, unspecified; Y92.9 Unspecified place or not applicable; Y99.9 Unspecified external cause status
CPT/HCPCS: 73030

== ENCOUNTER 2021-09-08 07:04 | Outpatient (REF) | payer MEDICARE, SELFPAY ==
[2021-09-08 11:30] LABS: MANUAL DIFF FLAG NO
[2021-09-08 11:52] LABS: Basophils Percent Auto 0.4 % (0-2); Eosinophils Absolute Auto 0.1 X10*3/uL (0.0-0.4); Eosinophils Percent Auto 2.3 % (0-4); Hematocrit 41.9 % (37.0-47.0); Hemoglobin 13.8 g/dl (12.0-16.0); Imm Gran Abs Auto 0.02 X10*3/uL (0.00-0.03); Imm Gran Pct Auto 0.4 % (0.0-0.4); Lymphocytes Absolute Auto 2.2 X10*3/uL (1.2-4.9); Lymphocytes Percent Auto 41.8 % (20-40); Mean Corpuscular HGB Conc 32.9 g/dl (31.0-35.0); Mean Corpuscular Hemoglobin 33.3 pg (27.0-33.0); Mean Platelet Volume 11.1 fL (9.4-12.3); Monocytes Absolute Auto 0.4 X10*3/uL (0.1-1.2); Monocytes Percent Auto 7.4 % (2-11); Neutrophils Absolute Auto 2.5 x10*3/uL (2.0-8.3); Neutrophils Percent Auto 47.7 % (45-73); Platelet Count 222 X10*3/uL (160-400); Red Blood Count 4.15 X10*6/uL (4.20-5.50); Red Cell Distribution Width 12.4 % (11.0-16.0); White Blood Count 5.3 X10*3/uL (4.8-10.8)
[2021-09-08 14:36] LABS: Alanine Aminotransferase 15 U/L (0-31); Albumin Level 4.2 g/dL (3.5-5.0); Alkaline Phosphatase 75 U/L (39-117); Anion Gap 14 (12-20); Aspartate Amino Transferase 17 U/L (5-31); Bilirubin Total 0.5 mg/dL (0.0-1.0); Blood Urea Nitrogen 13 mg/dL (9-16); Calcium 9.7 mg/dL (8.4-10.2); Carbon Dioxide 28 mmol/L (22-29); Chloride 106 mmol/L (96-108); Cholesterol 173 mg/dL; Estimated Glomerular Filt Rate > 60; Glucose Fasting 99 mg/dL (60-99); HDL Cholesterol 63 mg/dL; LDL Cholesterol Calculated 91 mg/dl; Sodium 143 mmol/L (135-145); Total Protein 6.5 g/dL (6.5-8.0); Triglycerides 97 mg/dL
== END 2021-09-08 07:05 | disposition home or self-care (01) ==
LOC: HO.HMGCLDS 07:04
PROVIDERS: PCP Internal Medicine Medical Oncology; Visit Provider Internal Medicine Medical Oncology
DX: E78.5 Hyperlipidemia, unspecified (principal); K21.9 Gastro-esophageal reflux disease without esophagitis; I10 Essential (primary) hypertension
CPT/HCPCS: 36415; 80053; 80061; 85025

== ENCOUNTER → 2021-10-28 10:48 | Outpatient (BNVA) | payer MEDICARE, SELFPAY | PROVIDERS: PCP Internal Medicine Medical Oncology; Visit Provider Physician Assistant | DX: M75.82 Other shoulder lesions, left shoulder (principal) | CPT/HCPCS: 20610; 99202; J1040 ==

== ENCOUNTER 2022-01-10 07:58 | Outpatient (REF) | payer MEDICARE, SELFPAY ==
[2022-01-10 11:20] LABS: MANUAL DIFF FLAG NO
[2022-01-10 11:36] LABS: Basophils Percent Auto 0.3 % (0-2); Eosinophils Absolute Auto 0.1 X10*3/uL (0.0-0.4); Eosinophils Percent Auto 1.2 % (0-4); Hematocrit 41.2 % (37.0-47.0); Hemoglobin 13.3 g/dl (12.0-16.0); Imm Gran Abs Auto 0.01 X10*3/uL (0.00-0.03); Imm Gran Pct Auto 0.2 % (0.0-0.4); Lymphocytes Absolute Auto 1.9 X10*3/uL (1.2-4.9); Lymphocytes Percent Auto 31.9 % (20-40); Mean Corpuscular HGB Conc 32.3 g/dl (31.0-35.0); Mean Corpuscular Hemoglobin 32.9 pg (27.0-33.0); Mean Platelet Volume 11.3 fL (9.4-12.3); Monocytes Absolute Auto 0.5 X10*3/uL (0.1-1.2); Monocytes Percent Auto 7.6 % (2-11); Neutrophils Absolute Auto 3.5 x10*3/uL (2.0-8.3); Neutrophils Percent Auto 58.8 % (45-73); Platelet Count 250 X10*3/uL (160-400); Red Blood Count 4.04 X10*6/uL (4.20-5.50); Red Cell Distribution Width 12.4 % (11.0-16.0); White Blood Count 5.9 X10*3/uL (4.8-10.8)
[2022-01-10 12:19] LABS: Alanine Aminotransferase 16 U/L (0-31); Albumin Level 4.2 g/dL (3.5-5.0); Alkaline Phosphatase 71 U/L (39-117); Anion Gap 9 (12-20); Aspartate Amino Transferase 14 U/L (5-31); Bilirubin Total 0.7 mg/dL (0.0-1.0); Blood Urea Nitrogen 12 mg/dL (9-16); Calcium 10.2 mg/dL (8.4-10.2); Carbon Dioxide 33 mmol/L (22-29); Chloride 105 mmol/L (96-108); Cholesterol 177 mg/dL; Estimated Glomerular Filt Rate > 60; Free T4 (Free Thyroxine) 1.22 ng/dL (0.71-1.85); Glucose Fasting 98 mg/dL (60-99); HDL Cholesterol 58 mg/dL; LDL Cholesterol Calculated 96 mg/dl; Potassium 5.2 mmol/L (3.3-5.1); Sodium 142 mmol/L (135-145); Total Protein 6.4 g/dL (6.5-8.0); Triglycerides 115 mg/dL
== END 2022-01-10 07:59 | disposition home or self-care (01) ==
LOC: HO.HMGCLDS 07:58
PROVIDERS: PCP Internal Medicine Medical Oncology; Visit Provider Internal Medicine Medical Oncology
DX: E78.5 Hyperlipidemia, unspecified (principal); K21.9 Gastro-esophageal reflux disease without esophagitis; K58.9 Irritable bowel syndrome, unspecified; E03.9 Hypothyroidism, unspecified
CPT/HCPCS: 36415; 80053; 80061; 84439; 84443; 85025

== ENCOUNTER 2022-01-26 09:42 | Outpatient (REF) | payer MEDICARE, SELFPAY ==
[2022-01-26 09:55] LABS: Appearance Urine Clear; Color Urine Yellow; Glucose Urine UA Negative (Negative); Leukocyte Esterase Urine Negative (Negative); Nitrite Urine Negative (Negative); PH 6.5 (5.0-9.0); Specific Gravity - Urine <= 1.005 (1.005-1.025); Urine Blood Negative (Negative); Urine Ketones Negative (Negative); Urine Protein Negative (Neg-Trace)
== END 2022-01-26 09:43 | disposition home or self-care (01) ==
LOC: HO.LNP 09:42
PROVIDERS: Visit Provider Internal Medicine Medical Oncology
DX: R10.30 Lower abdominal pain, unspecified (principal); R39.9 Unspecified symptoms and signs involving the genitourinary system
CPT/HCPCS: 81003; 87086

== ENCOUNTER 2022-08-31 09:38 | Outpatient (REF) | payer MEDICARE, SELFPAY ==
--- NOTE | ~2022-08-31 | MM_ITS ---
EXAMINATION: MM SCREENING DIGITAL BREAST TOMOSYNTHESIS, BILATERAL CLINICAL INFORMATION: Screening. Asymptomatic. The lifetime risk of breast cancer based on the Tyrer-Cuzick Model is 1%. COMPARISON: Mammography: This study is compared with prior exams dating back to 2018. TECHNIQUE: Digital breast tomosynthesis is performed in both the craniocaudal and mediolateral oblique views along with computer-aided detection (CAD). Synthesized 2D images are generated from the tomosynthesis. FINDINGS: There are scattered areas of fibroglandular density (ACR BI-RADS breast composition Category b). There are no significant masses, abnormal calcifications, or other abnormalities. MM/MM tomosynthesis screening BI IMPRESSION: No mammographic evidence of malignancy. ASSESSMENT: BI-RADS BI-RADS 1 - Negative RECOMMENDATION: Routine annual mammography screening. 1 year F/U This examination should not preclude the clinical evaluation of a suspicious palpable abnormality. This patient's information was entered into a reminder system with a target due date for their next mammogram.
== END 2022-08-31 09:39 | disposition home or self-care (01) ==
LOC: HO.MAMMO 09:38
PROVIDERS: PCP Internal Medicine Medical Oncology; Visit Provider Internal Medicine Medical Oncology
DX: Z12.31 Encounter for screening mammogram for malignant neoplasm of breast (principal)
CPT/HCPCS: 77063; 77067

== ENCOUNTER → 2022-08-31 09:45 | Outpatient (BNV) | payer MEDICARE, SELFPAY | PROVIDERS: PCP Internal Medicine Medical Oncology; Visit Provider Radiology Diagnostic Radiology | DX: Z12.31 Encounter for screening mammogram for malignant neoplasm of breast (principal) | CPT/HCPCS: 77063; 77067 ==

== ENCOUNTER 2022-09-12 07:28 | Outpatient (REF) | payer MEDICARE, SELFPAY ==
[2022-09-12 11:30] LABS: MANUAL DIFF FLAG NO
[2022-09-12 11:46] LABS: Basophils Percent Auto 0.6 % (0-2); Eosinophils Absolute Auto 0.1 X10*3/uL (0.0-0.4); Eosinophils Percent Auto 2.5 % (0-4); Hematocrit 39.6 % (37.0-47.0); Hemoglobin 13.1 g/dl (12.0-16.0); Imm Gran Abs Auto 0.01 X10*3/uL (0.00-0.03); Imm Gran Pct Auto 0.2 % (0.0-0.4); Lymphocytes Percent Auto 37.7 % (20-40); Mean Corpuscular HGB Conc 33.1 g/dl (31.0-35.0); Mean Corpuscular Hemoglobin 33.2 pg (27.0-33.0); Mean Corpuscular Volume 100.3 fL (80.0-98.0); Monocytes Absolute Auto 0.4 X10*3/uL (0.1-1.2); Monocytes Percent Auto 7.5 % (2-11); Neutrophils Absolute Auto 2.7 x10*3/uL (2.0-8.3); Neutrophils Percent Auto 51.5 % (45-73); Platelet Count 245 X10*3/uL (160-400); Red Blood Count 3.95 X10*6/uL (4.20-5.50); Red Cell Distribution Width 12.3 % (11.0-16.0); White Blood Count 5.3 X10*3/uL (4.8-10.8)
[2022-09-12 12:44] LABS: Alanine Aminotransferase 10 U/L (0-31); Albumin Level 3.8 g/dL (3.5-5.0); Alkaline Phosphatase 65 U/L (39-117); Anion Gap 14 (12-20); Aspartate Amino Transferase 14 U/L (5-31); Bilirubin Total 0.4 mg/dL (0.0-1.0); Blood Urea Nitrogen 12 mg/dL (9-16); Calcium 9.5 mg/dL (8.4-10.2); Carbon Dioxide 26 mmol/L (22-29); Chloride 108 mmol/L (96-108); Cholesterol 163 mg/dL; Estimated Glomerular Filt Rate > 60; Glucose Fasting 100 mg/dL (60-99); HDL Cholesterol 49 mg/dL; LDL Cholesterol Calculated 90 mg/dl; Potassium 4.2 mmol/L (3.3-5.1); Sodium 144 mmol/L (135-145); Total Protein 6.4 g/dL (6.5-8.0); Triglycerides 123 mg/dL
[2022-09-12 12:46] LABS: Free T4 (Free Thyroxine) 1.08 ng/dL (0.71-1.85); Thyroid Stimulating Hormone 0.21 uIU/mL (0.32-4.0)
== END 2022-09-12 07:29 | disposition home or self-care (01) ==
LOC: HO.HMGCLDS 07:28
PROVIDERS: PCP Internal Medicine Medical Oncology; Visit Provider Internal Medicine Medical Oncology
DX: E78.5 Hyperlipidemia, unspecified (principal); I10 Essential (primary) hypertension; E03.9 Hypothyroidism, unspecified
CPT/HCPCS: 36415; 80053; 80061; 84439; 84443; 85025

== ENCOUNTER 2022-10-24 19:42 | Emergency (ER) | payer MEDICARE, SELFPAY ==
[2022-10-24 19:49] VITALS: BP 198/95; PULSE 77; RESP 74; TEMP 36.6; O2SAT 94; BMI 27.0
--- NOTE | 2022-10-24 19:50 | ED.GENADULT ---
HPI - General Adult General Chief complaint: Weakness Stated complaint: High blood pressure, weakness Time Seen by Provider: 10/24/22 23:16 Source: patient Mode of arrival: ambulatory Limitations: no limitations History of Present Illness HPI narrative: Patient tested positive for COVID a week still having the cough lost taste sensation few years ago still feeling weak tired last 2- 3 days check blood pressure at home was elevated to 197/110 patient has been taking metoprolol 150 mg twice a day no headache no chest pain no fever no chills shortness of breath no urine symptoms no vomiting abdominal patient also does have dry mouth and dry eyes Related Data Home Medications Medication Instructions Recorded Confirmed citalopram 20 mg tablet 20 mg PO DAILY 08/20/21 levothyroxine 88 mcg tablet 88 mcg PO DAILY 08/20/21 metoprolol tartrate 50 mg tablet mg PO 08/20/21 omeprazole 20 mg capsule,delayed 20 mg PO DAILY 08/20/21 release simvastatin 20 mg tablet 20 mg PO BEDTIME 08/20/21 calcium carbonate 600 mg-vitamin 1 tab PO DAILY 10/28/21 D3 5 mcg (200 unit) tablet Previous Rx's Medication Instructions Recorded loperamide 2 mg capsule 2 mg PO QID PRN loose stool #30 11/07/20 caps dicyclomine 20 mg tablet 20 mg PO QID PRN abdominal pain 11/10/20 #20 tabs cyclobenzaprine 10 mg tablet 10 mg PO BEDTIME #14 tabs 08/20/21 meloxicam 15 mg tablet 15 mg PO DAILY #14 tabs 08/20/21 cefuroxime axetil 250 mg tablet 250 mg PO BID 7 days #14 tabs 10/25/22 losartan 50 mg tablet 50 mg PO DAILY #30 tabs 10/25/22 Allergies Allergy/AdvReac Type Severity Reaction Status Date / Time fentanyl Allergy Unknown Patient Verified 08/20/21 08:45 stated her heart stopped morphine Allergy Unknown Unknown Verified 08/20/21 08:45 Review of Systems Review of Systems: Yes all other systems are reviewed and are negative [facility] Past Medical History Medical History Diverticulitis IBS (irritable bowel syndrome) Social History Social History Alcohol intake: never Patient Tobacco Use Status: Former Tobacco user Smoked in Last 30 Days: No Use of substances other than those prescribed or required for medical reasons: No Advance Directives: No Advance Directives Information Provided: Yes Current occupational status: retired Physical Exam ED Vital Signs: Vital Signs - 24 hr 10/24/22 19:49 10/24/22 22:31 10/24/22 23:19 Temperature 97.9 F Pulse Rate 77 67 62 Respiratory Rate 74 H 10 L Blood Pressure 198/95 H 198/80 H 191/87 H Pulse Oximetry 94 95 96 Oxygen Delivery Method Room Air Room Air 10/24/22 23:56 Temperature Pulse Rate 60 Respiratory Rate 16 Blood Pressure 186/72 H Pulse Oximetry 96 Oxygen Delivery Method Room Air BMI result Body Mass Index 27.0 Appearance: Alert. Oriented X3. No acute distress. Eyes: PERRLA, No Nystagmus, dry eyes ENT: Pharynx normal. Oral Mucosa moist Neck: Normal inspection. Neck supple. CVS: Normal heart rate and rhythm. Pulses normal. Respiratory: No respiratory distress. Equal air entry bilateral, no wheezing/rales/rhonchi Abdomen: Soft and nontender. Bowel sounds are present, no mass palpable, no CVA tenderness Skin: Skin warm and dry. Normal skin color. Normal skin turgor. Extremities: No lower extremity edema. No calf tenderness Neuro: Oriented X 3. No motor deficit. No sensory deficit.No cerebellar signs , cranial nerves II-XII intact Course Course Course Narrative: RME - 82 yo female presents to the ER for evaluation of weakness, decreased appetite for the last 1 week in the setting of COVID-19 diagnosed 1 week ago. BP 190/100 at home and PCP recommended she come to the ER for further evaluation. She is on metoprolol 150 mg BID, did not take tonight's dose. BP 198/95 in triage. Plan: labs, EKG, metoprolol ordered Medications Administered Discontinued Medications Generic Name Dose Route Start Last Admin Trade Name Handyq PRN Reason Stop Dose Admin Cefuroxime Axetil 250 mg 10/24/22 23:30 10/24/22 23:57 Cefuroxime Axetil 250 Mg Tablet PO 10/24/22 23:31 250 mg ONCE ONE Administration Losartan Potassium 50 mg 10/24/22 23:45 10/24/22 23:57 Losartan Potassium 50 Mg Tablet PO 10/24/22 23:46 50 mg ONCE ONE Administration Protocol Metoprolol Tartrate 150 mg 10/24/22 19:53 10/24/22 21:01 Metoprolol Tartrate 100 Mg Tablet PO 10/24/22 19:54 150 mg ONCE ONE Administration Protocol Medical Decision Making Medical Decision Making [facility] Narrative: Patient with elevated blood pressure and take her metoprolol will add losartan 50 mg daily advised to follow with PCP Differential Diagnosis Differential Diagnoses: The differential diagnosis associated with the presentation includes Accelerated hypertension/hypertensive urgency/anxiety Lab Data [facility] Lab Attestation statement: I reviewed the patient's lab results. 10/24/22 20:02 10/24/22 20:02 Labs: Lab Results 10/24/22 10/24/22 Range/Units 20:02 22:42 WBC 6.2 (4.8-10.8) X10*3/uL RBC 4.14 L (4.20-5.50) X10*6/uL Hgb 13.9 (12.0-16.0) g/dl Hct 39.7 (37.0-47.0) % MCV 95.9 (80.0-98.0) fL MCH 33.6 H (27.0-33.0) pg MCHC 35.0 (31.0-35.0) g/dl RDW 11.9 (11.0-16.0) % Plt Count 275 (160-400) X10*3/uL MPV 10.3 (9.4-12.3) fL Immature Gran % (Auto) 0.3 (0.0-0.4) % Neut % (Auto) 48.7 (45-73) % Lymph % (Auto) 39.7 (20-40) % [place] % (Auto) 7.9 (2-11) % Eos % (Auto) 3.1 (0-4) % Baso % (Auto) 0.3 (0-2) % Lymph # (Auto) 2.5 (1.2-4.9) X10*3/uL [place]irt # (Auto) 0.5 (0.1-1.2) X10*3/uL Eos # (Auto) 0.2 (0.0-0.4) X10*3/uL Baso # (Auto) 0.0 (0.0-0.2) X10*3/uL Abs Immat Gran (auto) 0.02 (0.00-0.03) X10*3/uL Absolute Neuts (auto) 3.0 (2.0-8.3) x10*3/uL Absolute Nucleated RBC 0.000 (0.0-0.012) X10*3/uL Nucleated RBC % (auto) 0.0 (0.0-0.2) /100WBC Sodium 140 (135-145) mmol/L Potassium 3.9 (3.3-5.1) mmol/L Chloride 105 (96-108) mmol/L Carbon Dioxide 26 (22-29) mmol/L Anion Gap 13 (12-20) BUN 12 (9-16) mg/dL Creatinine 0.83 (0.5-1.4) mg/dL Estim Creat Clear Calc 54.2 Estimated GFR > 60 Random Glucose 126 H (60-115) mg/dL Calcium 10.6 H D (8.4-10.2) mg/dL Magnesium 2.0 (1.6-2.6) mg/dL Total Bilirubin 0.3 (0.0-1.0) mg/dL Direct Bilirubin 0.1 (0.0-0.5) mg/dL AST 16 (5-31) U/L ALT 14 (0-31) U/L Alkaline Phosphatase 87 (39-117) U/L Troponin I High Sens < 2.7 (<3.5-17.0) ng/L Total Protein 6.9 (6.5-8.0) g/dL Albumin 4.0 (3.5-5.0) g/dL Urine Color Yellow Urine Appearance Clear Urine pH 6.5 (5.0-9.0) Ur Specific [place] 1.015 (1.005-1.025) Urine Protein Negative (Neg-Trace) mg/dL Urine Glucose (UA) Negative (Negative) mg/dL Urine Ketones Negative (Negative) mg/dL Urine Blood Negative (Negative) Urine Nitrite Negative (Negative) Ur Leukocyte Esterase Moderate (2+) H (Negative) Urine RBC 0-2 (0-2) /HPF Urine WBC 11-20 H (0-5) /HPF Ur Squamous Epith Cells 6-10 (0-2) /HPF Urine Bacteria 2+ (None Seen) Hyaline Casts 0-2 (0-2) /LPF Independent Interpretation I performed an independent interpretation of an: EKG Interpretation: Normal sinus rhythm heart rate 71 beats per minute normal axis normal intervals nonspecific ST-T changes no acute ischemia Discharge Plan Discharge Clinical Impression: Hypertension, uncontrolled, Acute UTI Patient Disposition: Home, Self-Care Instructions: Urinary Tract Infection in Women (ED), Chronic Hypertension (ED) Additional Instructions: Continue taking your medications add losartan 50 mg daily in the morning Check blood pressure before taking medication before you go to bed Normal blood pressure should be less than 135/85 Follow with PCP Take antibiotic for UTI Drink plenty of fluids Prescriptions: New losartan 50 mg tablet 50 mg PO DAILY Qty: 30 0RF cefuroxime axetil 250 mg tablet 250 mg PO BID 7 Days Qty: 14 0RF No Action dicyclomine 20 mg tablet 20 mg PO QID PRN (Reason: abdominal pain) Qty: 20 0RF loperamide 2 mg capsule 2 mg PO QID PRN (Reason: loose stool) Qty: 30 0RF omeprazole 20 mg capsule,delayed release(DR/EC) 20 mg PO DAILY simvastatin 20 mg tablet 20 mg PO BEDTIME levothyroxine 88 mcg tablet 88 mcg PO DAILY citalopram 20 mg tablet 20 mg PO DAILY metoprolol tartrate 50 mg tablet PO meloxicam 15 mg tablet 15 mg PO DAILY Qty: 14 0RF cyclobenzaprine 10 mg tablet 10 mg PO BEDTIME Qty: 14 0RF calcium carbonate-vitamin D3 600 mg-5 mcg (200 unit) tablet 1 tab PO DAILY Interventions: ED Discharge Assessment Last Done: 10/25/22 00:07 Discharge Date/Time: 10/25/22 00:07
--- NOTE | 2022-10-24 19:52 | ECG_ITS ---
Test Reason : hypertension Blood Pressure : / mmHG Vent. Rate : 071 BPM Atrial Rate : 071 BPM P-R Int : 134 ms QRS Dur : 084 ms QT Int : 398 ms P-R-T Axes : 061 034 -16 degrees QTc Int : 432 ms Normal sinus rhythm ST & T wave abnormality, consider inferior ischemia Abnormal ECG When compared with ECG of 05-MAR-2015 23:10, T wave inversion more evident in Inferior leads Referred By: Zabrina Tello Electronically Signed By:CORTNEY ROSARIO
[2022-10-24 20:08] LABS: MANUAL DIFF FLAG NO
[2022-10-24 20:15] LABS: Basophils Percent Auto 0.3 % (0-2); Eosinophils Absolute Auto 0.2 X10*3/uL (0.0-0.4); Eosinophils Percent Auto 3.1 % (0-4); Hematocrit 39.7 % (37.0-47.0); Hemoglobin 13.9 g/dl (12.0-16.0); Imm Gran Abs Auto 0.02 X10*3/uL (0.00-0.03); Imm Gran Pct Auto 0.3 % (0.0-0.4); Lymphocytes Absolute Auto 2.5 X10*3/uL (1.2-4.9); Lymphocytes Percent Auto 39.7 % (20-40); Mean Corpuscular Hemoglobin 33.6 pg (27.0-33.0); Mean Corpuscular Volume 95.9 fL (80.0-98.0); Mean Platelet Volume 10.3 fL (9.4-12.3); Monocytes Absolute Auto 0.5 X10*3/uL (0.1-1.2); Monocytes Percent Auto 7.9 % (2-11); Neutrophils Percent Auto 48.7 % (45-73); Platelet Count 275 X10*3/uL (160-400); Red Blood Count 4.14 X10*6/uL (4.20-5.50); Red Cell Distribution Width 11.9 % (11.0-16.0); White Blood Count 6.2 X10*3/uL (4.8-10.8)
[2022-10-24 20:29] LABS: Alanine Aminotransferase 14 U/L (0-31); Alkaline Phosphatase 87 U/L (39-117); Anion Gap 13 (12-20); Aspartate Amino Transferase 16 U/L (5-31); Bilirubin Direct 0.1 mg/dL (0.0-0.5); Bilirubin Total 0.3 mg/dL (0.0-1.0); Blood Urea Nitrogen 12 mg/dL (9-16); Calcium 10.6 mg/dL (8.4-10.2); Carbon Dioxide 26 mmol/L (22-29); Chloride 105 mmol/L (96-108); Creatinine Clr Calc Pharmacy 54.2; Estimated Glomerular Filt Rate > 60; Glucose Random 126 mg/dL (60-115); Potassium 3.9 mmol/L (3.3-5.1); Sodium 140 mmol/L (135-145); Total Protein 6.9 g/dL (6.5-8.0)
[2022-10-24 20:37] LABS: Troponin-I High Sensitivity < 2.7 ng/L (<3.5-17.0)
[2022-10-24] MEDS: Metoprolol Tartrate 100 MG TABLET 150 MG PO (21:01)
[2022-10-24 22:31] VITALS: BP 198/80; PULSE 67; O2SAT 95
[2022-10-24 22:48] LABS: Appearance Urine Clear; Color Urine Yellow; Glucose Urine UA Negative (Negative); Leukocyte Esterase Urine Moderate (2+) (Negative); Nitrite Urine Negative (Negative); PH 6.5 (5.0-9.0); Specific Gravity - Urine 1.015 (1.005-1.025); UMIC TRIGGER UACC YES; Urine Blood Negative (Negative); Urine Ketones Negative (Negative); Urine Protein Negative (Neg-Trace)
[2022-10-24 22:56] LABS: Bacteria Urine 2+ (None Seen); Hyaline Casts Urine 0-2 /LPF (0-2); RBC Urine 0-2 /HPF (0-2); UACC Culture Trigger YES
[2022-10-24 23:19] VITALS: BP 191/87; PULSE 62; RESP 10; O2SAT 96
[2022-10-24 23:56] VITALS: BP 186/72; PULSE 60; RESP 16; O2SAT 96
[2022-10-24] MEDS: Losartan Potassium 50 MG TABLET PO (23:57)
== END 2022-10-25 00:07 | disposition home or self-care (01) ==
PROVIDERS: Physician Assistant; Emergency Provider Internal Medicine; PCP Internal Medicine Medical Oncology
DX: N39.0 Urinary tract infection, site not specified (principal); R05.9 Cough, unspecified; R94.31 Abnormal electrocardiogram [ECG] [EKG]; I10 Essential (primary) hypertension; Z87.891 Personal history of nicotine dependence; Z79.899 Other long term (current) drug therapy
CPT/HCPCS: 36415; 80048; 80076; 81001; 83735; 84484; 85025; 87086; 93005; 99283; 99285

== ENCOUNTER 2022-11-04 14:12 | Outpatient (REF) | payer MEDICARE, SELFPAY | END 2022-11-04 14:13 | disposition home or self-care (01) | LOC: HO.LAB 14:12 | PROVIDERS: PCP Internal Medicine Medical Oncology; Visit Provider Internal Medicine Medical Oncology | DX: N39.0 Urinary tract infection, site not specified (principal) | CPT/HCPCS: 87086 ==

== ENCOUNTER 2022-11-30 07:54 | Outpatient (REF) | payer MEDICARE, SELFPAY ==
[2022-11-30 12:27] LABS: Calcium 9.5 mg/dL (8.4-10.2)
[2022-12-01 14:39] LABS: Calcium (PTHI) 9.3 mg/dL (8.6-10.4); PTHI 73 pg/mL (16-77)
== END 2022-11-30 07:55 | disposition home or self-care (01) ==
LOC: HO.HMGCLDS 07:54
PROVIDERS: PCP Internal Medicine Medical Oncology; Visit Provider Internal Medicine Medical Oncology
DX: E78.5 Hyperlipidemia, unspecified (principal); E03.9 Hypothyroidism, unspecified
CPT/HCPCS: 36415; 82310; 83970

== ENCOUNTER 2023-01-09 08:06 | Outpatient (REF) | payer MEDICARE, SELFPAY ==
[2023-01-09 11:15] LABS: MANUAL DIFF FLAG NO
[2023-01-09 11:57] LABS: Alanine Aminotransferase 13 U/L (0-31); Albumin Level 4.1 g/dL (3.5-5.0); Alkaline Phosphatase 65 U/L (39-117); Anion Gap 10 (12-20); Aspartate Amino Transferase 15 U/L (5-31); Bilirubin Total 0.6 mg/dL (0.0-1.0); Blood Urea Nitrogen 12 mg/dL (9-16); Calcium 9.9 mg/dL (8.4-10.2); Carbon Dioxide 30 mmol/L (22-29); Chloride 106 mmol/L (96-108); Cholesterol 175 mg/dL (<200); Estimated Glomerular Filt Rate > 60; Glucose Fasting 102 mg/dL (60-99); HDL Cholesterol 57 mg/dL (>40); LDL Cholesterol Calculated 94 mg/dL (<100); Potassium 4.2 mmol/L (3.3-5.1); Sodium 142 mmol/L (135-145); Total Protein 6.8 g/dL (6.5-8.0); Triglycerides 120 mg/dL (<150)
[2023-01-09 12:04] LABS: Basophils Percent Auto 0.5 % (0-2); Eosinophils Absolute Auto 0.1 X10*3/uL (0.0-0.4); Eosinophils Percent Auto 1.9 % (0-4); Hematocrit 41.6 % (37.0-47.0); Hemoglobin 13.7 g/dl (12.0-16.0); Imm Gran Abs Auto 0.02 X10*3/uL (0.00-0.03); Imm Gran Pct Auto 0.3 % (0.0-0.4); Lymphocytes Absolute Auto 1.9 X10*3/uL (1.2-4.9); Lymphocytes Percent Auto 32.6 % (20-40); Mean Corpuscular HGB Conc 32.9 g/dl (31.0-35.0); Mean Corpuscular Volume 100.2 fL (80.0-98.0); Mean Platelet Volume 11.1 fL (9.4-12.3); Monocytes Absolute Auto 0.4 X10*3/uL (0.1-1.2); Monocytes Percent Auto 7.5 % (2-11); Neutrophils Absolute Auto 3.3 x10*3/uL (2.0-8.3); Neutrophils Percent Auto 57.2 % (45-73); Platelet Count 238 X10*3/uL (160-400); Red Blood Count 4.15 X10*6/uL (4.20-5.50); Red Cell Distribution Width 12.8 % (11.0-16.0); White Blood Count 5.8 X10*3/uL (4.8-10.8)
[2023-01-09 12:24] LABS: Free T4 (Free Thyroxine) 0.99 ng/dL (0.71-1.85); Thyroid Stimulating Hormone 1.04 uIU/mL (0.32-4.0)
== END 2023-01-09 08:07 | disposition home or self-care (01) ==
LOC: HO.HMGCLDS 08:06
PROVIDERS: PCP Internal Medicine Medical Oncology; Visit Provider Internal Medicine Medical Oncology
DX: E78.5 Hyperlipidemia, unspecified (principal); E03.9 Hypothyroidism, unspecified; E66.3 Overweight
CPT/HCPCS: 36415; 80053; 80061; 84439; 84443; 85025

== ENCOUNTER 2023-04-11 07:18 | Outpatient (REF) | payer MEDICARE, SELFPAY ==
[2023-04-11 11:38] LABS: MANUAL DIFF FLAG NO
[2023-04-11 11:47] LABS: Basophils Percent Auto 0.7 % (0-2); Eosinophils Absolute Auto 0.1 X10*3/uL (0.0-0.4); Eosinophils Percent Auto 2.4 % (0-4); Hematocrit 42.4 % (37.0-47.0); Imm Gran Abs Auto 0.01 X10*3/uL (0.00-0.03); Imm Gran Pct Auto 0.2 % (0.0-0.4); Lymphocytes Absolute Auto 2.1 X10*3/uL (1.2-4.9); Mean Corpuscular Hemoglobin 33.3 pg (27.0-33.0); Mean Corpuscular Volume 100.7 fL (80.0-98.0); Mean Platelet Volume 11.1 fL (9.4-12.3); Monocytes Absolute Auto 0.5 X10*3/uL (0.1-1.2); Monocytes Percent Auto 8.2 % (2-11); Neutrophils Absolute Auto 3.1 x10*3/uL (2.0-8.3); Neutrophils Percent Auto 52.5 % (45-73); Platelet Count 229 X10*3/uL (160-400); Red Blood Count 4.21 X10*6/uL (4.20-5.50); Red Cell Distribution Width 12.2 % (11.0-16.0)
[2023-04-11 12:28] LABS: Alanine Aminotransferase 14 U/L (0-31); Alkaline Phosphatase 67 U/L (39-117); Anion Gap 9 (12-20); Aspartate Amino Transferase 16 U/L (5-31); Bilirubin Total 0.5 mg/dL (0.0-1.0); Blood Urea Nitrogen 15 mg/dL (9-16); Calcium 9.7 mg/dL (8.4-10.2); Carbon Dioxide 31 mmol/L (22-29); Chloride 105 mmol/L (96-108); Cholesterol 176 mg/dL (<200); Estimated Glomerular Filt Rate > 60; Free T4 (Free Thyroxine) 0.99 ng/dL (0.71-1.85); Glucose Fasting 96 mg/dL (60-99); HDL Cholesterol 52 mg/dL (>40); LDL Cholesterol Calculated 100 mg/dL (<100); Potassium 4.6 mmol/L (3.3-5.1); Sodium 140 mmol/L (135-145); Thyroid Stimulating Hormone 1.12 uIU/mL (0.32-4.0); Total Protein 6.5 g/dL (6.5-8.0); Triglycerides 120 mg/dL (<150)
== END 2023-04-11 07:19 | disposition home or self-care (01) ==
LOC: HO.HMGCLDS 07:18
PROVIDERS: PCP Internal Medicine Medical Oncology; Visit Provider Internal Medicine Medical Oncology
DX: E78.5 Hyperlipidemia, unspecified (principal); E03.9 Hypothyroidism, unspecified; E66.3 Overweight
CPT/HCPCS: 36415; 80053; 80061; 84439; 84443; 85025

== ENCOUNTER 2023-04-19 11:39 | Outpatient (REF) | payer MEDICARE, SELFPAY ==
--- NOTE | ~2023-04-19 | XR_ITS ---
EXAMINATION: XR CERVICAL SPINE CLINICAL INFORMATION: Neck pain COMPARISON: None available. TECHNIQUE: 5 views of the cervical spine FINDINGS: Normal alignment and cervical lordosis with mild multilevel degenerative disc disease and moderate facet arthropathy. No fracture or prevertebral soft tissue swelling. No significant neural foraminal encroachment on the oblique views. XR/XR cervical spine 4V IMPRESSION: Mild multilevel degenerative disc disease and moderate facet arthropathy. Normal alignment. Osteopenia.
== END 2023-04-19 11:40 | disposition home or self-care (01) ==
LOC: HO.XRAY 11:39
PROVIDERS: PCP Internal Medicine Medical Oncology; Visit Provider Internal Medicine Medical Oncology
DX: M54.2 Cervicalgia (principal)
CPT/HCPCS: 72050

== ENCOUNTER 2023-05-02 08:19 | Outpatient (REF) | payer MEDICARE, SELFPAY ==
--- NOTE | ~2023-05-02 | US_ITS ---
EXAMINATION: US ABDOMEN COMPLETE CLINICAL INFORMATION: Abdominal pain. COMPARISON: Ultrasound abdomen complete 07/01/2020 and 12/23/2015. CT abdomen and pelvis 12/27/2015. TECHNIQUE: Real-time imaging of the abdominal viscera. Limited visualization due to bowel gas. FINDINGS: PANCREAS: Limited visualization. ABDOMINAL AORTA: Limited visualization. Imaged portions are nonaneurysmal. INFERIOR VENA CAVA: Visualized portions are normal. LIVER: Increased hepatic parenchymal heterogeneity and echogenicity could be associated with hepatocellular disease/hepatic steatosis and substantially limits visualization. Correlation with liver function tests and clinical exam recommended to determine further management. GALLBLADDER: Large amount of sludge in the gallbladder. COMMON BILE DUCT: Normal in caliber measuring 0.4 cm in diameter. RIGHT KIDNEY: No hydronephrosis. No renal calculi. Limited visualization. The kidney measures 10.2 cm in maximum dimension. LEFT KIDNEY: No hydronephrosis. No renal calculi. Limited visualization. A 0.6 cm upper pole cyst. There is no indication for additional imaging at this time. The kidney measures 9.4 cm in maximum dimension. SPLEEN: Normal. The spleen measures 8.0 cm in maximum dimension. FREE FLUID: None. US/US abdomen complete IMPRESSION: 1. Increased hepatic parenchymal heterogeneity and echogenicity could be associated with hepatocellular disease/hepatic steatosis and substantially limits visualization. Correlation with liver function tests and clinical exam recommended to determine further management. 2. Large amount of sludge in the gallbladder.
== END 2023-05-02 08:20 | disposition home or self-care (01) ==
LOC: HO.HMGCX 08:19
PROVIDERS: PCP Internal Medicine Medical Oncology; Visit Provider Internal Medicine Medical Oncology
DX: R10.30 Lower abdominal pain, unspecified (principal)
CPT/HCPCS: 76700

== ENCOUNTER 2023-06-09 07:45 | Outpatient (REF) | payer MEDICARE, SELFPAY ==
[2023-06-09 10:19] LABS: MANUAL DIFF FLAG NO
[2023-06-09 10:38] LABS: Basophils Percent Auto 0.4 % (0-2); Eosinophils Absolute Auto 0.2 X10*3/uL (0.0-0.4); Eosinophils Percent Auto 2.7 % (0-4); Hematocrit 40.7 % (37.0-47.0); Hemoglobin 13.4 g/dl (12.0-16.0); Imm Gran Abs Auto 0.01 X10*3/uL (0.00-0.03); Imm Gran Pct Auto 0.2 % (0.0-0.4); Lymphocytes Absolute Auto 1.8 X10*3/uL (1.2-4.9); Lymphocytes Percent Auto 32.8 % (20-40); Mean Corpuscular HGB Conc 32.9 g/dl (31.0-35.0); Mean Corpuscular Hemoglobin 33.5 pg (27.0-33.0); Mean Corpuscular Volume 101.8 fL (80.0-98.0); Mean Platelet Volume 10.8 fL (9.4-12.3); Monocytes Absolute Auto 0.4 X10*3/uL (0.1-1.2); Monocytes Percent Auto 6.8 % (2-11); Neutrophils Absolute Auto 3.2 x10*3/uL (2.0-8.3); Neutrophils Percent Auto 57.1 % (45-73); Platelet Count 238 X10*3/uL (160-400); Red Cell Distribution Width 12.5 % (11.0-16.0); White Blood Count 5.6 X10*3/uL (4.8-10.8)
[2023-06-09 10:54] LABS: Alanine Aminotransferase 12 U/L (0-31); Alkaline Phosphatase 66 U/L (39-117); Anion Gap 13 (12-20); Aspartate Amino Transferase 14 U/L (5-31); Bilirubin Total 0.4 mg/dL (0.0-1.0); Blood Urea Nitrogen 12 mg/dL (9-16); Calcium 9.7 mg/dL (8.4-10.2); Carbon Dioxide 27 mmol/L (22-29); Chloride 106 mmol/L (96-108); Cholesterol 173 mg/dL (<200); Estimated Glomerular Filt Rate > 60; Glucose Fasting 101 mg/dL (60-99); HDL Cholesterol 55 mg/dL (>40); LDL Cholesterol Calculated 93 mg/dL (<100); Potassium 4.3 mmol/L (3.3-5.1); Sodium 142 mmol/L (135-145); Total Protein 6.7 g/dL (6.5-8.0); Triglycerides 126 mg/dL (<150)
[2023-06-09 11:14] LABS: Free T4 (Free Thyroxine) 1.02 ng/dL (0.71-1.85); Thyroid Stimulating Hormone 0.68 uIU/mL (0.32-4.0)
== END 2023-06-09 07:46 | disposition home or self-care (01) ==
LOC: HO.HMGCLDS 07:45
PROVIDERS: PCP Internal Medicine Medical Oncology; Visit Provider Internal Medicine Medical Oncology
DX: E78.5 Hyperlipidemia, unspecified (principal); E66.3 Overweight; E03.9 Hypothyroidism, unspecified
CPT/HCPCS: 36415; 80053; 80061; 84439; 84443; 85025

== ENCOUNTER → 2023-08-01 07:47 | Outpatient (REF) | payer MEDICARE, SELFPAY ==
--- NOTE | ~2023-08-01 | NM_ITS ---
EXAMINATION: BILIARY TRACT IMAGING STUDY WITH CCK CLINICAL INFORMATION: Right upper quadrant pain.. COMPARISON: No previous biliary scan is available for comparison. Abdominal ultrasound dated 05/02/[address] scan of the abdomen and pelvis dated 12/27/2015 are available for comparison.. TECHNIQUE: Serial gamma scintillation camera images were obtained over the abdomen for a total observation period of 99 minutes following the intravenous administration of 5 mCi Tc-99m Mebrofenin. FINDINGS: There is good concentration of activity in the liver by 5 minutes post injection. Biliary activity is visualized by 15 minutes. The gallbladder is well visualized by 40 minutes. Small bowel is well visualized by 30 minutes. At 30 minutes post radiopharmaceutical injection, a 30-minute infusion of 1.5 micrograms Sincalide was then begun and an additional 40 minutes of images were obtained. There is good emptying of the gallbladder. By the end of the study there is good clearance of activity from the liver and visualization of diffuse small bowel activity. The calculated gallbladder ejection fraction is 74% (normal gallbladder ejection fraction is greater than 35%). NM/NM hepatobiliary w pharm IMPRESSION: Visualization of the gallbladder is evidence of a patent cystic duct and strong evidence against the diagnosis of acute cholecystitis. The common bile duct is patent. Gallbladder emptying and ejection fraction are normal. Liver function appears normal.
== END ==
LOC: HO.NUCMED 07:47
PROVIDERS: PCP Internal Medicine Medical Oncology; Visit Provider Internal Medicine Medical Oncology
DX: R10.11 Right upper quadrant pain (principal); K80.20 Calculus of gallbladder without cholecystitis without obstruction
CPT/HCPCS: 78227; A9537; J2805

== ENCOUNTER 2023-08-15 07:06 | Outpatient (REF) | payer MEDICARE, SELFPAY ==
[2023-08-15 10:10] LABS: MANUAL DIFF FLAG NO
[2023-08-15 10:27] LABS: Basophils Percent Auto 0.5 % (0-2); Eosinophils Absolute Auto 0.1 X10*3/uL (0.0-0.4); Eosinophils Percent Auto 2.2 % (0-4); Hematocrit 40.8 % (37.0-47.0); Hemoglobin 13.6 g/dl (12.0-16.0); Imm Gran Abs Auto 0.03 X10*3/uL (0.00-0.03); Imm Gran Pct Auto 0.5 % (0.0-0.4); Lymphocytes Percent Auto 33.8 % (20-40); Mean Corpuscular HGB Conc 33.3 g/dl (31.0-35.0); Mean Corpuscular Hemoglobin 33.5 pg (27.0-33.0); Mean Corpuscular Volume 100.5 fL (80.0-98.0); Mean Platelet Volume 11.2 fL (9.4-12.3); Monocytes Absolute Auto 0.4 X10*3/uL (0.1-1.2); Monocytes Percent Auto 6.7 % (2-11); Neutrophils Absolute Auto 3.3 x10*3/uL (2.0-8.3); Neutrophils Percent Auto 56.3 % (45-73); Platelet Count 232 X10*3/uL (160-400); Red Blood Count 4.06 X10*6/uL (4.20-5.50); Red Cell Distribution Width 12.3 % (11.0-16.0); White Blood Count 5.8 X10*3/uL (4.8-10.8)
[2023-08-15 11:07] LABS: Erythrocyte Sedimentation Rate 7 MM/HR (0-20)
[2023-08-15 11:20] LABS: Alanine Aminotransferase 11 U/L (0-31); Albumin Level 4.1 g/dL (3.5-5.0); Alkaline Phosphatase 65 U/L (39-117); Anion Gap 10 (12-20); Aspartate Amino Transferase 14 U/L (5-31); Bilirubin Total 0.4 mg/dL (0.0-1.0); Blood Urea Nitrogen 13 mg/dL (9-16); Calcium 9.5 mg/dL (8.4-10.2); Carbon Dioxide 29 mmol/L (22-29); Chloride 108 mmol/L (96-108); Cholesterol 163 mg/dL (<200); Estimated Glomerular Filt Rate > 60; Free T4 (Free Thyroxine) 0.94 ng/dL (0.71-1.85); Glucose Fasting 101 mg/dL (60-99); HDL Cholesterol 51 mg/dL (>40); LDL Cholesterol Calculated 89 mg/dL (<100); Potassium 4.1 mmol/L (3.3-5.1); Sodium 143 mmol/L (135-145); Thyroid Stimulating Hormone 0.64 uIU/mL (0.32-4.0); Total Protein 6.5 g/dL (6.5-8.0); Triglycerides 116 mg/dL (<150)
== END 2023-08-15 07:07 | disposition home or self-care (01) ==
LOC: HO.HMGCLDS 07:06
PROVIDERS: PCP Internal Medicine Medical Oncology; Visit Provider Internal Medicine Medical Oncology
DX: K21.9 Gastro-esophageal reflux disease without esophagitis (principal); E03.9 Hypothyroidism, unspecified; K44.9 Diaphragmatic hernia without obstruction or gangrene; R10.11 Right upper quadrant pain; E78.5 Hyperlipidemia, unspecified
CPT/HCPCS: 36415; 80053; 80061; 84439; 84443; 85025; 85652

== ENCOUNTER 2023-08-17 07:13 | Outpatient (REF) | payer MEDICARE, SELFPAY ==
--- NOTE | ~2023-08-17 | CT_ITS ---
EXAMINATION: CT ABDOMEN WITH CONTRAST CLINICAL INFORMATION: Pain of right upper quadrant. COMPARISON: Abdomen ultrasound from 05/02/2023. Abdomen CT from 12/27/2015. TECHNIQUE: Contiguous axial thin section helical images of the abdomen were performed following the administration of oral contrast and 85 mL of Omnipaque 350 intravenous contrast. The data set was reformatted in the coronal and sagittal planes and reviewed on an independent workstation. This CT examination was performed using dose optimization techniques as appropriate, variously including the following: *Automated exposure control *Adjustment of mA and/or kV according to patient size (this includes techniques or standardized protocols for targeted exams where dose is matched to indication/reason for exam; i.e. extremities or head) *Use of iterative reconstruction technique DLP: 290 mGy-cm FINDINGS: Lung bases are unremarkable. Liver has normal size and contour. Gallbladder appears to contain mild amount of sludge. No visible stones, wall thickening or pericholecystic fluid. No dilated bile ducts. Pancreatic parenchyma has normal attenuation. Pancreatic duct measures up to 3-4 mm diameter. No pancreatic mass, edema or peripancreatic fluid. Spleen is normal. The medial limb of the left adrenal gland has transverse thickness of 0.8 cm, possibly due to presence of a very small adenoma, unchanged compared to 12/27/2015. No adrenal imaging follow-up recommended. Kidneys enhance symmetrically. No nephrolithiasis, hydronephrosis or perinephric edema. There are a few small simple cysts of the left kidney for which no renal imaging follow-up is recommended. The ureters are unremarkable. There is atherosclerotic calcification of the abdominal aorta without aneurysm. No pathologic sized lymph nodes in the abdomen. Stomach is unremarkable. There are diverticula of the second and third portions of the duodenum. The appendix is normal. Multiple diverticula of the partially visualized colon without evidence of diverticulitis. No abdominal free fluid or free air. Bones are diffusely osteopenic. There is levoscoliosis of the lower thoracic and lumbar spine. The disc degenerative changes of the visualized spine are worst at L1-L2 and L5-S1. CT/CT abdomen w IV con IMPRESSION: * No specific source of pain is identified. * There appears to be sludge of the gallbladder without any discrete stones. No evidence of cholecystitis. * Colonic diverticulosis without diverticulitis.
[2023-08-17] MEDS: Barium Sulfate Oral (Vanilla) 450 ML ORAL.SUSP PO (08:59)
[2023-08-17] MEDS: iohexoL 350 MG/ML 100 ML INFUS..BTL IV (09:00)
== END 2023-08-17 07:14 | disposition home or self-care (01) ==
LOC: HO.CT 07:13
PROVIDERS: PCP Internal Medicine Medical Oncology; Visit Provider Internal Medicine Medical Oncology
DX: R10.11 Right upper quadrant pain (principal)
CPT/HCPCS: 74160; Q9967

== ENCOUNTER 2023-09-06 09:51 | Outpatient (REF) | payer MEDICARE, SELFPAY | END 2023-09-06 09:52 | disposition home or self-care (01) | LOC: HO.MAMMO 09:51 | PROVIDERS: PCP Internal Medicine Medical Oncology; Visit Provider Internal Medicine Medical Oncology | DX: Z12.31 Encounter for screening mammogram for malignant neoplasm of breast (principal) | CPT/HCPCS: 77063; 77067 ==

== ENCOUNTER → 2023-09-06 10:00 | Outpatient (BNV) | payer MEDICARE, SELFPAY | PROVIDERS: PCP Internal Medicine Medical Oncology; Visit Provider Radiology Diagnostic Radiology | DX: Z12.31 Encounter for screening mammogram for malignant neoplasm of breast (principal) | CPT/HCPCS: 77063; 77067 ==

== ENCOUNTER 2023-12-21 07:15 | Outpatient (REF) | payer MEDICARE, SELFPAY ==
[2023-12-21 10:06] LABS: MANUAL DIFF FLAG NO
[2023-12-21 10:22] LABS: Basophils Percent Auto 0.5 % (0-2); Eosinophils Absolute Auto 0.2 X10*3/uL (0.0-0.4); Eosinophils Percent Auto 2.3 % (0-4); Hematocrit 39.1 % (37.0-47.0); Hemoglobin 13.8 g/dl (12.0-16.0); Imm Gran Abs Auto 0.03 X10*3/uL (0.00-0.03); Imm Gran Pct Auto 0.5 % (0.0-0.4); Lymphocytes Absolute Auto 2.4 X10*3/uL (1.2-4.9); Lymphocytes Percent Auto 35.4 % (20-40); Mean Corpuscular HGB Conc 35.3 g/dl (31.0-35.0); Mean Corpuscular Hemoglobin 33.7 pg (27.0-33.0); Mean Corpuscular Volume 95.4 fL (80.0-98.0); Mean Platelet Volume 10.7 fL (9.4-12.3); Monocytes Absolute Auto 0.6 X10*3/uL (0.1-1.2); Monocytes Percent Auto 8.3 % (2-11); Neutrophils Absolute Auto 3.5 x10*3/uL (2.0-8.3); Platelet Count 296 X10*3/uL (160-400); Red Cell Distribution Width 11.8 % (11.0-16.0); White Blood Count 6.6 X10*3/uL (4.8-10.8)
[2023-12-21 10:47] LABS: Alanine Aminotransferase 25 U/L (0-31); Albumin Level 4.1 g/dL (3.5-5.0); Alkaline Phosphatase 76 U/L (39-117); Amylase 87 U/L (28-100); Anion Gap 10 (12-20); Aspartate Amino Transferase 25 U/L (5-31); Bilirubin Total 0.5 mg/dL (0.0-1.0); Blood Urea Nitrogen 12 mg/dL (9-16); Calcium 9.3 mg/dL (8.4-10.2); Carbon Dioxide 33 mmol/L (22-29); Chloride 91 mmol/L (96-108); Estimated Glomerular Filt Rate > 60; Glucose Random 97 mg/dL (60-115); Lipase 40 U/L (8-78); Potassium 4.3 mmol/L (3.3-5.1); Sodium 130 mmol/L (135-145); Total Protein 6.6 g/dL (6.5-8.0)
[2023-12-21 17:47] LABS: Gamma Glutamyl Transpeptidase 50 U/L (7-33); Lactate Dehydrogenase 182 U/L (122-220)
== END 2023-12-21 07:16 | disposition home or self-care (01) ==
LOC: HO.HMGCLDS 07:15
PROVIDERS: PCP Internal Medicine Medical Oncology; Visit Provider Internal Medicine Medical Oncology
DX: E03.9 Hypothyroidism, unspecified (principal); E78.5 Hyperlipidemia, unspecified; E66.3 Overweight; R11.2 Nausea with vomiting, unspecified
CPT/HCPCS: 36415; 80053; 82150; 82977; 83615; 83690; 85025

== ENCOUNTER 2023-12-29 08:13 | Outpatient (REF) | payer MEDICARE, SELFPAY ==
[2023-12-29 10:14] LABS: MANUAL DIFF FLAG NO
[2023-12-29 10:15] LABS: Appearance Urine Cloudy; Color Urine Yellow; Glucose Urine UA Negative (Negative); Leukocyte Esterase Urine Moderate (2+) (Negative); Nitrite Urine Negative (Negative); PH 6.5 (5.0-9.0); UMIC TRIGGER UA YES; Urine Blood Trace (Negative); Urine Ketones Negative (Negative); Urine Protein Negative (Neg-Trace)
[2023-12-29 10:20] LABS: Basophils Percent Auto 0.4 % (0-2); Eosinophils Absolute Auto 0.1 X10*3/uL (0.0-0.4); Eosinophils Percent Auto 1.4 % (0-4); Hematocrit 37.1 % (37.0-47.0); Hemoglobin 13.3 g/dl (12.0-16.0); Imm Gran Abs Auto 0.03 X10*3/uL (0.00-0.03); Imm Gran Pct Auto 0.5 % (0.0-0.4); Lymphocytes Absolute Auto 1.7 X10*3/uL (1.2-4.9); Lymphocytes Percent Auto 29.1 % (20-40); Mean Corpuscular HGB Conc 35.8 g/dl (31.0-35.0); Mean Corpuscular Hemoglobin 33.4 pg (27.0-33.0); Mean Corpuscular Volume 93.2 fL (80.0-98.0); Mean Platelet Volume 10.4 fL (9.4-12.3); Monocytes Absolute Auto 0.4 X10*3/uL (0.1-1.2); Monocytes Percent Auto 7.8 % (2-11); Neutrophils Absolute Auto 3.5 x10*3/uL (2.0-8.3); Neutrophils Percent Auto 60.8 % (45-73); Platelet Count 278 X10*3/uL (160-400); Red Blood Count 3.98 X10*6/uL (4.20-5.50); Red Cell Distribution Width 11.7 % (11.0-16.0); White Blood Count 5.7 X10*3/uL (4.8-10.8)
[2023-12-29 10:30] LABS: Bacteria Urine 1+ (None Seen); Hyaline Casts Urine 0-2 /LPF (0-2); RBC Urine 0-2 /HPF (0-2); Squamous Epithelial Cell Urine >20 /HPF (0-2); WBC Urine 0-5 /HPF (0-5)
[2023-12-29 10:35] LABS: Rheumatoid Factor < 13.0 IU/mL (<15.0)
[2023-12-29 10:51] LABS: Alanine Aminotransferase 21 U/L (0-31); Albumin Level 4.2 g/dL (3.5-5.0); Alkaline Phosphatase 67 U/L (39-117); Anion Gap 11 (12-20); Aspartate Amino Transferase 22 U/L (5-31); Bilirubin Total 0.7 mg/dL (0.0-1.0); Blood Urea Nitrogen 11 mg/dL (9-16); Calcium 10.3 mg/dL (8.4-10.2); Carbon Dioxide 32 mmol/L (22-29); Chloride 91 mmol/L (96-108); Cholesterol 180 mg/dL (<200); Estimated Glomerular Filt Rate > 60; Glucose Fasting 107 mg/dL (60-99); HDL Cholesterol 54 mg/dL (>40); LDL Cholesterol Calculated 102 mg/dL (<100); Potassium 3.4 mmol/L (3.3-5.1); Sodium 131 mmol/L (135-145); Total Protein 6.7 g/dL (6.5-8.0); Triglycerides 120 mg/dL (<150)
[2023-12-29 10:53] LABS: Free T4 (Free Thyroxine) 1.39 ng/dL (0.71-1.85); Thyroid Stimulating Hormone 0.71 uIU/mL (0.32-4.0)
[2023-12-29 11:35] LABS: Erythrocyte Sedimentation Rate 9 MM/HR (0-20)
[2024-01-02 17:39] LABS: IgA 98 mg/dL (70-320); IgG 648 mg/dL (600-1540); IgM 67 mg/dL (50-300)
[2024-01-03 09:24] LABS: Anti Nuclear Antibody Pattern Nuclear, Speckled; Anti Nuclear Antibody Screen POSITIVE (NEGATIVE)
== END 2023-12-29 08:14 | disposition home or self-care (01) ==
LOC: HO.HMGCLDS 08:13
PROVIDERS: PCP Internal Medicine Medical Oncology; Visit Provider Internal Medicine Medical Oncology
DX: E03.9 Hypothyroidism, unspecified (principal); K58.9 Irritable bowel syndrome, unspecified; R10.11 Right upper quadrant pain; K82.9 Disease of gallbladder, unspecified; M35.00 Sjogren syndrome, unspecified
CPT/HCPCS: 36415; 80053; 80061; 81001; 82784; 84439; 84443; 85025; 85652; 86038; 86039; 86334; 86431

== ENCOUNTER 2024-01-11 10:09 | Outpatient (AMB) | payer MEDICARE, SELFPAY ==
--- NOTE | 2024-01-11 10:10 | MHC.OFFVIS ---
Vital Signs 01/11/24 10:14 Height 5 ft 4 in Weight 163 lb BMI 28.0 BP 131/64 Blood Pressure Location Rt brachial Position Sitting Pulse 62 Intake Visit Reasons: gallbladder/sludge Intake Note: Patient referred by pcp Dr. Thomas for gallbladder sludge noted on Abd CT/ 08-07-2023. Patient c/o: on and off pain on rt lower quadrant, nausea. Sprayer Leather Required: No Accompanied by: spouse Antwan Allergies fentanyl Allergy (Unknown, Verified 01/11/24 10:16) Patient stated her heart stopped morphine Allergy (Unknown, Verified 01/11/24 10:16) Unknown HPI Comments Details: 83-year-old female patient presenting with complaints of abdominal pain in the right upper quadrant. Pain is intermittent and in short duration with radiation to the back. She has not identified any particular inciting events including greasy food, spicy foods or dairy products. She also reports nausea which seems to be independent of the abdominal pain. She has a history of IBS with constipation and is afraid to take any medications at will add to her constipation. She subsequently underwent workup including ultrasound of the abdomen on 04/26/2023 which revealed a large amount of sludge within the gallbladder as well as hepatic steatosis. CT abdomen and pelvis on 08/17/2023 also revealed gallbladder sludge with no stones or wall thickening. Common bile duct was reported as normal. A HIDA scan performed on 08/01/2023 revealed normal filling of the gallbladder, normal emptying of bile into the intestines as well as a normal ejection fraction. [facility] Medical History Biliary colic Diverticulitis IBS (irritable bowel syndrome) Social History Alcohol intake: never Patient Tobacco Use Status: Former Tobacco user Current occupational status: retired Review of Systems Const All systems reviewed & are unremarkable except as noted in HPI and below Denies chills, Denies fever(s), Denies headache(s), Denies poor appetite and Denies weakness ENT Denies headache(s) Card Denies chest pain, Denies irregular heart rhythm, Denies palpitations and Denies dyspnea Resp Denies cough, Denies excessive phlegm production and Denies dyspnea GI Reports abdominal pain, Denies bloating, Denies change in bowel habits, Reports constipation, Denies heartburn, Denies diarrhea, Reports nausea and Denies vomiting Denies urinary frequency Musc Denies back pain, Denies muscle weakness and Denies numbness Skin/Breast Denies changing lesions and Denies unusual bruising Neuro Denies headache(s), Denies numbness, Denies paresthesias and Denies weakness Psych Denies anxiety and Denies depression Endo Denies palpitations Randolph/Lymph Denies lymphadenopathy Physical Exam Vital Signs: Last Vital Signs Pulse 62 01/11/24 10:14 BP 131/64 01/11/24 10:14 BMI result Body Mass Index 28.0 Const General: cooperative and no acute distress Nutritional Appearance: well nourished Orientation/consciousness: patient oriented x3 Limitations: no limitations HEENT Head: Yes normocephalic and Yes atraumatic Ears: hearing grossly normal bilaterally Resp Effort & Inspection: normal respiratory effort, no audible wheezes, no cough and no respiratory distress Cardio Jugular venous distension: no JVD GI Inspection: Yes normal to inspection Palpation (GI): Soft to palpation, nontender, no guarding and not rigid Percussion: Yes normal to percussion Auscultation: normal bowel sounds Rectal Exam - Female: deferred Skin Other: Warm, dry, no rash Neuro General: patient oriented x3 Extrem General: Yes no clubbing, cyanosis or edema Assessment & Plan Assessment & Plan (1) Biliary colic: Code(s): K80.50 - Calculus of bile duct without cholangitis or cholecystitis without obstruction Category: Medical Plan 83-year-old female patient presenting with complaints of right upper quadrant abdominal pain and nausea with no clear etiology found on workup to have biliary sludge within the gallbladder. She reports her symptoms are mild and intermittent and not incapacitating. She is concerned about undergoing surgery given her previous history of reaction to fentanyl and morphine. I reviewed the ultrasound, CT and HIDA scan findings in detail with the patient and her and discussed the indications for surgery. Her symptoms may be related to gallbladder disease although it is difficult to know for sure. She certainly does not require emergency or urgent cholecystectomy and can monitor her symptoms. Should the symptoms become more severe or incapacitating I definitely would consider elective cholecystectomy as an option. She expressed understanding and will call should her symptoms worsen. Coding Level of Care Code New Pt Level 4 (36820) Diagnoses Biliary colic K80.50
[2024-01-11 10:14] VITALS: BP 131/64; PULSE 62; BMI 28.0
--- OUTSIDE RECORDS SUMMARY | 2024-01-17 01:28 | XMS_ITS ---
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 Medications Medication SIG (Take, Route, Frequency, Duration) Notes Start Date End Date Status hydroCHLOROthiazide Not-Taking Citalopram Hydrobromide Not-Taking LORazepam 0.5 MG Orally PRN Not -Taking CeleXA 20 MG Orally Not-Darrick ing PROzac Not-Taking Probiotic Active Simvastatin Active Losartan Potassium 100 MG Oral for 30 Days Active Ammonium Lactate 12 % 1 application Externally Twice a day for 30 days Active Paxil 30 MG Orally Once a day Not-Taking Metoprolol Tartrate Active Omeprazole Magnesium Active Dry Eyes Active Levothyroxine Sodium 88 MCG 1 tablet on an empty stomach in the morning Orally Once a day for 30 day(s) Active PARoxetine HCl Activ e Dicyclomine HCl PRN Acti ve Calcium + D 600-200 MG-UNIT 1 tablet wit h food Orally Once a day Active Social History Tobacco Use: Social History Observation Description Date Details (start date - stop date) Former Smoker NA - NA Tobacco Use/Smoking Question Answer Notes Are you a: former smoker Additional Findings: Tobacco User Light cigarett e smoker ((1-9 cigs/day) Additional Findings: Tobacco Non-User Current no n-smoker Alcohol Screen Question Answer Notes Did you have a drink containing alcohol in the p ast year? No Points 0 Interpretation Negative Tobacco use other than smoking: Question Answer Notes Are you an other tobacco user? No Vital Signs Blood pressure systolic 140 mm Hg 01/09/20 Blood pressure diastolic 75 mm Hg 024 Height 5 ft 4 in in 01/09/2024 Weight 163 lbs 01/09/2024 BMI 27.98 kg/m2 01/09/2024 Procedures Procedure Date Ordered Date Performed Result Body Sit e 85912-WORLROE NAIL, 6 OR MORE 01/09/2024 N/A 48726-ILKO SKIN LESIONS, 2 TO 4 01/09/2024 N/A Encounters Encounter Location Date Provider Diagnosis [facility] [address] [place] [address] 01/09/2024 Rad Hendrix Atherosclerosis of [place] artery of both lower extremities, with unspecified presence of clinical manifestation I70.203 ; Tinea unguium B35.1 ; Pain in right toe(s) M79.674 and Pain in left toe(s) M79.675 Assessments Encounter Date Diagnosis (ICD Code) Assessment Notes Treatment Notes Treatment Clinical Notes Section Notes 01/09/2024 Atherosclerosis of [place] artery of both lower extremities, with unspecified presence of clinical manifestation (ICD-10 - I70.203) 01/09/2024 Tinea unguium (ICD-10 - B35.1) 01/09/2024 Pain in right toe(s) (ICD-10 - M79.674) 01/09/2024 Pain in left toe(s) (ICD-10 - M79.675) Plan Of Treatment Pending Test Test Name Order Date 89620-TMNQUPC NAIL, 6 OR MORE 01/09/2024 85504-HEHC SKIN LESIONS, 2 TO 4 01/09/20 24 Next Appt Details Follow Up: prn, Reason: Provider Name:Rad Hendrix , 04/09/2024 10:00:00 AM, [address] [place], [address], Procedure Notes * Category Sub-Category Detail Notes Debride Nail 6-10 Nail debridement Performance o f this nail treatment by a nonprofessional would put this patients foot and overall health at risk. Therefore, debridement to affected nail(s), as described in exam, was performed extensively to reduce/remove overall nail length, girth, thickness, subungual debris, and necrotic tissue, by manual and/or electrical means through the use of a nail nipper and/or dremel-type sample tester grinder, to a more viable healthy nail plate or bed tissue 6-10 nails in total. Silver nitrate was used for any petechial bleeding as necessary. Definitive antifungal treatment options, both pharmaceutical and surgical, have been reviewed and discussed with the patient. The patient solely prefers the use of intermittent/as needed professional debridement services for their nail condition and understands the need for additional periodic treatments to maintain effectiveness in symptomatic relief - 37144 Keratoma Treatment Parring or Cutting o f Benign Hyperkeratotic Lesion(s) (-56) 2-4 Lesions - The Benign hyperkeratotic lesions, ( 4) in total, locations as stated and described in exam, were pared, and/or cut utilizing a sterile 15 blade, tissue nippers, and/or power dremel instrumentation - 77932, Q8 Progress Notes * Radha BUSH ADOB:1940 (83 yo F)Acc No.[id number]:01/09/2024 Progress Note Patient:?Tammie BUSHhleen Che Provider:?Rad Hendrix DPM :1940???Age:83 Y???Sex:Female D ate:01/09/2024 Address:[address] [place], [place] [id number] Pcp:Senthil Thomas MD Subjective: * Chief Complaints: * ???At Risk FootcarePainful N ail(s) aggrevated by shoes and causing difficulty standing/walking. * HPI: ???At Risk footcare:?Pt States Last PCP Visit:?Date?12/28/2023 * ROS:?General/Constitutional:?Nausea?denies.?Vomiting?denies.?Hunger Thirst?denies.?Loss appetite?denies.?Chills?denies.?Fatigue?denies.?Fever?denies.?Night Sweats?denies.?Unexplained weight loss?denies.?Ophthalmologic:?Blurred vision?denies.?Red eye?denies.?HEENTM:?Dentures?denies.?Dizziness?denies.?Glasses/contacts?admits.?Retinopathy?de nies.?Blurred/double vision?denies.?TMJ?denies.?Discharge/drainage?denies.?Implants?denies.?Hard of hearing denies.?Difficulty chewing/swallowing/speaking?denies.?Nose bleeds?denies.?Sore mouth?denies.?Swollen glands?denies.?Respiratory:?On Oxygen?denies.?Pneumonia/pleurisy?denies.?Bronchitis?denies.?Emphysema?denies.?C oughing?denies.?Cough blood?denies.?Shortness of breath?denies.?Wheezing?denies.?Cardiovascular:?Pacemaker?denies.?MVP?denies.?WPW?denies.?CHF?denies.?Heart attack?denies.?Septal defect?denies.?Rapid beat?denies.?Chest pain ?denies.?Atrial Fib.?denies.?Murmur/Palpitations?denies.?Gastrointestinal:?Hemorrhoids?denies.?Stomach/Abdominal pain?denies.?Dark blood stool?denies.?Irritable bowel ?admits.?Constipation?denies.?Diarrhea?denies.?Vomiting?denies.?Hematology:?Swelling?denies.?Bruising?denies.?Bleeding problem?denies.?Genitourinary:?Blood urine?denies.?Frequent/Painfu/urination/bladder control?denies.?Kidney stones?denies.?Infection (UTI)?denies.?Nephropathy?denies.?Musculoskeletal:?Hammertoes?admits.?Bunions?denies.?Scoliosis/kyphosis?denies.?Muscle cramps / walking?denies.?Generalized aches and pains?denies.?Weakness?denies.?Integ.:?[place]?denies.?Scars?denies.?Corns/calluses?admits.?Ingrown nails?admits.?Painful nails?admits.?Rashes?denies.?Neurologic:?Difficulty sleeping?denies.?Bipolar?denies.?Brain disorder?denies.?Balance trouble?denies.?Confusion?denies.?Fainting/blackouts?denies.?Headache?denies.?Tr emors?denies.? * Medical History:? * Surgical History:?tonsillect pedro cataract surgery * Hospitalization/Major Diagno stic Procedure:?Patient had a fall and went to [facility]. 09[facility]13/[facility] blood pressure 10/2022 * Family History:?Mother: dece ased, diagnosed with Unspecified essential hypertension.?Father: .?Children: alive.? 3. * Social History:?Tobacco Use:?Tobacco Use/Smoking?Are you a:?former smoker ?Additional Findings: Tobacco User?Light cigarette smoker ((1-9 cigs/day) ?Additional Findings: Tobacco Non-User?Current non-smoker ?Tobacco use other than smoking?Are you an other tobacco user??No ???Drugs/Alcohol:?Drugs?Have you used drugs other than those for medical reasons in the past 12 months??No ?Alcohol Screen?Did you have a drink containing alcohol in the past year??No ?Points?0 ?Interpretation?Negative ???Miscellaneous:?Caffeine: yes, frequency:, 1-2 cups per day. ?Children: yes, 3. ?Exercise: no. ?Marital status: . ?Occupation: Retired-[employer]. * Medications:?TakingCalcium + D 600-200 MG-UNIT Tablet 1 tablet with food Orally Once a day Dicyclomine HCl , Notes to Pharmacist: PRNDry Eyes Levothyroxine Sodium 88 MCG Tablet 1 tablet on an empty stomach in the morning Orally Once a day PARoxetine HCl Metoprolol Tartrate Omeprazole Magnesium Probiotic Simvastatin Losartan Potassium 100 MG Tablet Oral Ammonium Lactate 12 % Cream 1 application Externally Twice a day Taking Calcium + D 600-200 MG-UNIT Tablet 1 tablet with food Orally Once a day Taking Dicyclomine HCl , Notes to Pharmacist: PRNTaking Dry Eyes Taking Levothyroxine Sodium 88 MCG Tablet 1 tablet on an empty stomach in the morning Orally Once a day Taking PARoxetine HCl Taking Metoprolol Tartrate Taking Omeprazole Magnesium Taking Probiotic Taking Simvastatin Taking Losartan Potassium 100 MG Tablet Oral Taking Ammonium Lactate 12 % Cream 1 application Externally Twice a day Not- Taking/PRNPaxil 30 MG Tablet Orally Once a day Citalopram Hydrobromide LORazepam 0.5 MG Tablet Orally , Notes to Pharmacist: PRNCeleXA 20 MG Tablet Orally PROzac hydroCHLOROthiazide Medication List reviewed and reconciled with the patientNot-Taking/PRN Paxil 30 MG Tablet Orally Once a day Not-Taking/PRN Citalopram Hydrobromide Not-Taking/PRN LORazepam 0.5 MG Tablet Orally , Notes to Pharmacist: PRNNot-Taking/PRN CeleXA 20 MG Tablet Orally Not-Taking/PRN PROzac Not-Taking/PRN hydroCHLOROthiazide Medication List reviewed and reconciled with the patient * Allergies:?N.K.D.A.yes[Aller gies Verified] Objective: * Vitals:?Ht: 5 ft 4 in, Wt:16 3, BMI: 27.98, Shoe size:8.5, BP:140/75mm Hg, Ht-cm: 162.56 cm, Wt-k.94 kg. * Examination: ???Vascular: ?DP PULSES(B):? 1, B/L.?PT PULSES(B):? 0/4, B/L.?CAPILLARY FILL TIME:? delayed, all digits, B/L.?TROPHIC CONDITION-TEXTURE/ELASTICITY/TURGOR/HAIR GROWTH(B):? decreased,?with sparse to absent hair growth, B/L.?TEMPERTURE GRADIENT(C):? decreased, cool to cool, proximal to distal, B/L.?PIGMENTATION:? pale, B/L.?EDEMA(C):?absent, B/L.?CLAUDICATION(C):?denies, B/L.?REST PAIN:?denies, B/L.?Nails: ?NAILS are:?Elongated, overgrown, dystrophic, lytic, greater than 3mm thick, discolored and friable with crumbly malodorous subungual debris, with pain on palpation, TA, T1, T2, T4, T5, T6, T8.?Dermatologic: ?SKIN FINDINGS:? Skin exam reveals Keratotic lesion(s) located at, SUB MTH (s), 2, B/L, SUB MTH (s), 5, B/L.? Assessment: * Assessment: 1.?Tinea unguium - B35.1???2 .?Atherosclerosis of [place] artery of both lower extremities, with unspecified presence of clinical manifestation - I70.203 (Primary)???3.?Pain in right toe(s) - M79.674???4.?Pain in left toe(s) - M79.675??? Plan: * Treatment: 2.?Tinea unguium?Procedure: 16744-PQLHMSB NAIL, 6 OR MORE * Procedures:?Debride Nail 6-10:?Nail debridement?Performance of this nail treatment by a nonprofessional would put this patients foot and overall health at risk. Therefore, debridement to affected nail(s), as described in exam, was performed extensively to reduce/remove overall nail length, girth, thickness, subungual debris, and necrotic tissue, by manual and/or electrical means through the use of a nail nipper and/or dremel-type sample tester grinder, to a more viable healthy nail plate or bed tissue 6-10 nails in total. Silver nitrate was used for any petechial bleeding as necessary. Definitive antifungal treatment options, both pharmaceutical and surgical, have been reviewed and discussed with the patient. The patient solely prefers the use of intermittent/as needed professional debridement services for their nail condition and understands the need for additional periodic treatments to maintain effectiveness in symptomatic relief - 50070.?Keratoma Treatment:?Parring or Cutting of Benign Hyperkeratotic Lesion(s)?(-56) 2-4 Lesions - The Benign hyperkeratotic lesions, ( 4) in total, locations as stated and described in exam, were pared, and/or cut utilizing a sterile 15 blade, tissue nippers, and/or power dremel instrumentation - 49887, Q8.? * Procedure Codes:?07862 DEBRI DE NAIL, 6 OR MORE, Modifiers: XS 28603 TRIM SKIN LESIONS, 2 TO 4, Modifiers: XS , Q8 * Follow Up:?prn * Images: * Sign off status: Completed true * Provider:?Rad Hendrix DPM Date:?2023 Generated for Roopa cruz/Gabriella/Eunice on:?01/17/2024 01:28 AM EST History and Physical Notes * HPI (History of Present Illness) Category Sub-Category Detail Notes Category Not es At Risk footcare Pt States Last PCP Visit: Date: Examination Category Sub-Category Detail Notes Category Not es Dermatologic SKIN FINDINGS: Skin exam reveal s Keratotic lesion(s) located at, SUB MTH (s), 2, B/L, SUB MTH (s), 5, B/L Vascular DP PULSES(B): 1/4, B/L PT PULSES(B): 0/4, B/L CAPILLARY FILL TIME: delayed, all digits , B/L TEMPERTURE GRADIENT(C): decreased, cool to cool, proximal to distal, B/L TROPHIC CONDITION-TEXTURE/ELASTICITY/TURGOR/HAIR GROWTH(B): decreased, with sparse to absent hair gr owth, B/L EDEMA(C): absent, B/L CLAUDICATION(C): denies, B/L REST PAIN: denies, B/L PIGMENTATION: pale, B/L Nails NAILS are: Elongated, overg rown, dystrophic, lytic, greater than 3mm thick, discolored and friable with crumbly malodorous subungual debris, with pain on palpation, TA, T1, T2, T4, T5, T6, T8
--- OUTSIDE RECORDS SUMMARY | 2024-01-17 01:28 | XMS_ITS ---
Author Organization [facility] [address] rosario Sidhu Address [address] [place] [address] Care Team Providers Care Glory Hole Tender Name Role Phone William REBOLLAR, Senthil Primary Care Provider UnavailRad Howard Unavailable [phone] Allergies No Known Allergies REASON FOR VISIT At Risk Footcare, Painful Nail(s) aggrevated by shoes and causing difficulty standing/walking., Skin problem(s) Medications Medication SIG (Take, Route, Frequency, Duration) Notes Start Date End Date Status Paxil 30 MG Orally Once a day Not-Taking Simvastatin Active Probiotic Active Ammonium Lactate 12 % 1 application Externally Twice a day for 30 days Active Losartan Potassium 100 MG Oral for 30 Days Active Dry Eyes Active PARoxetine HCl Activ e Levothyroxine Sodium 88 MCG 1 tablet on an empty stomach in the morning Orally Once a day for 30 day(s) Active Omeprazole Magnesium Active Metoprolol Tartrate Active Calcium + D 600-200 MG-UNIT 1 tablet wit h food Orally Once a day Active Dicyclomine HCl PRN Acti ve PROzac Not-Taking CeleXA 20 MG Orally Not-Darrick ing hydroCHLOROthiazide Not-Taking LORazepam 0.5 MG Orally PRN Not -Taking Citalopram Hydrobromide Not-Taking Social History Tobacco Use: Social History Observation Description Date Details (start date - stop date) Former Smoker NA - NA Tobacco Use/Smoking Question Answer Notes Are you a: former smoker Additional Findings: Tobacco User Light cigarett e smoker ((1-9 cigs/day) Additional Findings: Tobacco Non-User Current no n-smoker Tobacco use other than smoking: Question Answer Notes Are you an other tobacco user? No Vital Signs Blood pressure systolic 140 mm Hg 10/06/19 24 Blood pressure diastolic 75 mm Hg 024 Height 5 ft 4 in in 10/06/2023 Weight 163 lbs 10/06/2023 BMI 27.98 kg/m2 10/06/2023 Procedures Procedure Date Ordered Date Performed Result Body Sit e 42862-KOTVJUN NAIL, 6 OR MORE 10/06/2023 N/A 01002-GDUF SKIN LESIONS, 2 TO 4 10/06/2023 N/A Encounters Encounter Location Date Provider Diagnosis [facility] [address] [address] 10/06/2023 Rad Hendrix Atherosclerosis of [place] artery of both lower extremities, with unspecified presence of clinical manifestation I70.203 ; Tinea unguium B35.1 ; Pain in right toe(s) M79.674 ; Pain in left toe(s) M79.675 and Xerosis of skin L85.3 Assessments Encounter Date Diagnosis (ICD Code) Assessment Notes Treatment Notes Treatment Clinical Notes Section Notes 10/06/2023 Atherosclerosis of [place] artery of both lower extremities, with unspecified presence of clinical manifestation (ICD-10 - I70.203) 10/06/2023 Tinea unguium (ICD-10 - B35.1) 10/06/2023 Pain in right toe(s) (ICD-10 - M79.674) 10/06/2023 Pain in left toe(s) (ICD-10 - M79.675) 10/06/2023 Xerosis of skin (ICD-10 - L85.3) Plan Of Treatment Pending Test Test Name Order Date 91919-PLDDPWM NAIL, 6 OR MORE 10/06/2023 14290-WMZD SKIN LESIONS, 2 TO 4 10/06/19 24 Next Appt Details Follow Up: prn, Reason: Provider Name:Rad Hendrix , 04/09/2024 10:00:00 AM, [address] [place] [address], [phone], Procedure Notes * Category Sub-Category Detail Notes Debride Nail 6-10 Nail debridement Performance o f this nail treatment by a nonprofessional would put this patients foot and overall health at risk. Therefore, nail debridement was performed extensively to reduce/remove overall nail length, girth, thickness, subungual debris, and necrotic tissue, by manual and/or electrical means through the use of a nail nipper and/or dremel-type grinder and plater, to a more viable healthy nail plate or bed tissue 6-10. Silver nitrate used for any petechial bleeding as necessary. Definitive antifungal treatment options have been reviewed and discussed with the patient. The patient chooses, no pharmaceutical tx - 69876 Keratoma Treatment Parring or Cutting o f Benign Hyperkeratotic Lesion(s) 83180 ( 2-4 Lesions ) - The Benign hyperkeratotic lesions, as described above were pared, and/or cut utilizing a sterile 15 blade, tissue nippers, and/or dremel - 57589 , Q9 Progress Notes * Radha BUSH ADOB:1940 (83 yo F)Acc No.[id number]:10/06/2023 Progress Note Patient:?Radha Bush Provider:?Rad Hendrix DPM :1940???Age:83 Y???Sex:Female D ate:10/06/2023 Address:[address] [place], [place] [address] Pcp:Senthil Thomas MD Subjective: * Chief Complaints: * ???At Risk FootcarePainful N ail(s) aggrevated by shoes and causing difficulty standing/walking.Skin problem(s) * HPI: ???At Risk footcare:?Pt States Last PCP Visit:?Date?09/21/2023 ???Skin problems:?Treatments:?medication ( AM Lactin ) , states adherence to recommended treatment application.? * ROS:?General/Constitutional:?Nausea?denies.?Vomiting?denies.?Hunger Thirst?denies.?Loss appetite?denies.?Chills?denies.?Fatigue?denies.?Fever?denies.?Night Sweats?denies.?Unexplained weight loss?denies.?Ophthalmologic:?Blurred [...] Procedure:?Patient had a fall and went to [facility] ER. 09/13/2011[facility]- blood pressure 10/2022 * Family History:?Mother: dece ased, diagnosed with Unspecified essential hypertension.?Father: .?Children: alive.? 3. * Social History:?Tobacco Use:?Tobacco Use/Smoking?Are you a:?former smoker ?Additional Findings: Tobacco User?Light cigarette smoker ((1-9 cigs/day) ?Additional Findings: Tobacco Non-User?Current non-smoker ?Tobacco use other than smoking?Are you an other tobacco user??No ???Miscellaneous:?Caffeine: yes, frequency:, 1-2 cups per day. ?Children: yes, 3. ?no Exercise. ?Marital status: . ?Occupation: Retired-[employer]. * Medications:?TakingCalcium + D 600-200 MG-UNIT Tablet 1 tablet with food Orally Once a dayDicyclomine HCl , Notes: PRNDry Eyes Levothyroxine Sodium 88 MCG Tablet 1 tablet on an empty stomach in the morning Orally Once a dayPARoxetine HCl Metoprolol Tartrate Omeprazole Magnesium Probiotic Simvastatin Losartan Potassium 100 MG Tablet Oral Ammonium Lactate 12 % Cream 1 application Externally Twice a dayTaking Calcium + D 600-200 MG-UNIT Tablet 1 tablet with food Orally Once a dayTaking Dicyclomine HCl , Notes: PRNTaking Dry Eyes Taking Levothyroxine Sodium 88 MCG Tablet 1 tablet on an empty stomach in the morning Orally Once a dayTaking PARoxetine HCl Taking Metoprolol Tartrate Taking Omeprazole Magnesium Taking Probiotic Taking Simvastatin Taking Losartan Potassium 100 MG Tablet Oral Taking Ammonium Lactate 12 % Cream 1 application Externally Twice a dayNot-Taking/PRNPaxil 30 MG Tablet Orally Once a dayCitalopram Hydrobromide LORazepam 0.5 MG Tablet Orally , Notes: PRNCeleXA 20 MG Tablet Orally PROzac hydroCHLOROthiazide Medication List reviewed and reconciled with the patientNot-Taking/PRN Paxil 30 MG Tablet Orally Once a dayNot-Taking/PRN Citalopram Hydrobromide Not-Taking/PRN LORazepam 0.5 MG Tablet Orally , Notes: PRNNot-Taking/PRN CeleXA 20 MG Tablet Orally Not-Taking/PRN PROzac Not- Taking/PRN hydroCHLOROthiazide Medication List reviewed and reconciled with the patient * Allergies:?N.K.D.A.yes[Aller gies Verified] Objective: * Vitals:?Ht: 5 ft 4 in, Wt: 1 63, BMI: 27.98, Shoe size: 8.5, BP: 140/75 mm Hg, Ht-cm: 162.56 cm, Wt-k.94 kg. * Examination: ???Vascular: ?DP PULSES:? 1, B/L.?PT PULSES:? 0, B/L.?CAPILLARY FILL TIME:? delayed, all digits, B/L.?SKIN TEMPERTURE GRADIENT OF THE LOWER EXTERMITIES:? decreased, cool to cool, proximal to distal, B/L.?HAIR GROWTH/TEXTURE/ELASTICITY/TURGOR:? decreased, B/L.?PIGMENTATION:? pale, B/L.?EDEMA:?absent, B/L.?CLAUDICATION:?denies, B/L.?REST PAIN:?denies, B/L.?Nails: ?NAILS are:?Elongated, overgrown, dystrophic, lytic, greater than 3mm thick, discolored and friable with crumbly malodorous subungual debris, with pain on palpation, TA, T1, T2, T4, T5, T6, T8.?Dermatologic: ?SKIN FINDINGS:? Skin exam reveals Keratotic lesion(s) located at, SUB MTH (s), 2, B/L, SUB MTH (s), 5, B/L , Skin shows approximately 80% LESS, sign(s) of, dryness, scaling, in a stocking fashion, no fissure(s) present, B/L.? Assessment: * Assessment: 1.?Tinea unguium - B35.1?2.? Atherosclerosis of [place] artery of both lower extremities, with unspecified presence of clinical manifestation - I70.203 (Primary)?3.?Pain in right toe(s) - M79.674?4.?Pain in left toe(s) - M79.675?5.?Xerosis of skin - L85.3, Acute problem, Stable (1=3),Response to treatment - Improvement? Plan: * Treatment: 2.?Tinea unguium?Procedure: 84718-ULOLWAC NAIL, 6 OR MORE * Procedures:?Debride Nail 6-10:?Nail debridement?Performance of this nail treatment by a nonprofessional would put this patients foot and overall health at risk. Therefore, nail debridement was performed extensively to reduce/remove overall nail length, girth, thickness, subungual debris, and necrotic tissue, by manual and/or electrical means through the use of a nail nipper and/or dremel-type grinder and plater, to a more viable healthy nail plate or bed tissue 6-10. Silver nitrate used for any petechial bleeding as necessary. Definitive antifungal treatment options have been reviewed and discussed with the patient. The patient chooses, no pharmaceutical tx - 88140.?Keratoma Treatment:?Parring or Cutting of Benign Hyperkeratotic Lesion(s)?18999 ( 2-4 Lesions ) - The Benign hyperkeratotic lesions, as described above were pared, and/or cut utilizing a sterile 15 blade, tissue nippers, and/or dremel - 59364 , Q9.? * Procedure Codes:?86289 DEBRI DE NAIL, 6 OR MORE, Modifiers: XS 94180 TRIM SKIN LESIONS, 2 TO 4, Modifiers: XS , Q9 * Preventive Medicine:? ??Counseling:?Discussion:?-12: Office or other outpatient visit for the evaluation and management of an established patient, which required a medically appropriate history and/or examination and STRAIGHTFORWARD level of MEDICAL DECISION MAKING, 1 SELF-LIMITED OR MINOR PROBLEM, MINIMAL- NO AMOUNT/COMPLEXITY OF DATA TO BE REVIEWED/ANALYZED, AND MINIMAL RISK OF COMPLICATION/MORBIDITY. The visit on the day of the encounter encompassed interpreting the data and educating the patient as to the nature of their condition, treatment options available according to their individual PMH, meds, allergies, and overall health/living conditions, as well as any potential risks or complications that may occur from a failure to adhere to, and participate in, the recommended course of therapy. The discussion included a complete verbal, and/or written explanation of the examination results, any x-rays taken, the proposed diagnosis, and outline of the treatment plan. A schedule for future care needs was also explained. The patient verbalized an understanding of the instructions at this time and agreed to be an active participant in their treatment. If the patient should think of any questions or concerns after the visit, I have encouraged the patient to call the office.?Xerosis:?Given recent successful results to treatment, The patient is to cont the rx cream as directed.? * Follow Up:?prn * Images: * Sign off status: Completed Addendum: * ? true * Provider:?Rad Hendrix DPM Date:?2023 Generated for Roopa cruz/Gabriella/Eunice on:?01/17/2024 01:28 AM EST History and Physical Notes * HPI (History of Present Illness) Category Sub-Category Detail Notes Category Not es Skin problems Treatments: medication ( AM Lactin ) , states adherence to recommended treatment application At Risk footcare Pt States Last PCP Visit: Date: 09/21/2023 Examination Category Sub-Category Detail Notes Category Not es Dermatologic SKIN FINDINGS: Skin exam reveal s Keratotic lesion(s) located at, SUB MTH (s), 2, B/L, SUB MTH (s), 5, B/L , Skin shows approximately 80% LESS, sign(s) of, dryness, scaling, in a stocking fashion, no fissure(s) present, B/L Vascular DP PULSES(B): 1/4, B/L PT PULSES(B): 0/4, B/L CAPILLARY FILL TIME: delayed, all digits , B/L TEMPERTURE GRADIENT(C): decreased, cool to cool, proximal to distal, B/L TROPHIC CONDITION-TEXTURE/ELASTICITY/TURGOR/HAIR GROWTH(B): decreased, B/L EDEMA(C): absent, B/L CLAUDICATION(C): denies, B/L REST PAIN: denies, B/L PIGMENTATION: pale, B/L Nails NAILS are: Elongated, overg rown, dystrophic, lytic, greater than 3mm thick, discolored and friable with crumbly malodorous subungual debris, with pain on palpation, TA, T1, T2, T4, T5, T6, T8
--- OUTSIDE RECORDS SUMMARY | 2024-01-17 01:29 | XMS_ITS ---
Author Organization Senthil Thomas III, MD Address [address] [place] [place] [address] Care Team Providers Care Delivery Mgr Name Role Phone Senthil Thomas Primary Care Provider REASON FOR VISIT Needs call back from Social History Sex Assigned At : Social History Observation Description Sex Assigned At Female Encounters Encounter Location Date Provider Diagnosis Senthil Thomas III, MD [address] [place] [address] [place] [address] 12/25/2023 Senthil Thomas Right upper quadrant pain R10.11 and Disease of gallbladder, unspecified K82.9 Assessments Encounter Date Diagnosis (ICD Code) Assessment Notes Treat ment Notes Treatment Clinical Notes 12/25/2023 Right upper quadrant pain (ICD-10 - R10.11) 12/25/2023 Disease of gallbladder, unspecified (ICD-10 - K82.9) Plan Of Treatment Pending Test Test Name Order Date HIDA SCAN GB WITH CCK 12/25/2023 Next Appt Details Provider Name:Senthil Thomas, 01/26/2024 09:00:00 AM, [address] [place] [address] [place], [address], Provider Name:Senthil Thomas, 09/27/2024 02:30:00 PM, [address] [place] [address] [place], [address], Progress Notes * Radha BUSHDOB:[birth year] (83 yo F)Acc No.[id number]:12/25/2023 Patient:?Radha BUSH :1940???Age:83 Y???Sex:Female Address:[address] [place] [address], [facility] [place], [address] Subjective: * Chief Complaints: * ???Needs call back from MD * Medical History:? * Surgical History:? * Hospitalization/Major Diagno stic Procedure:? * Medications:? Objective: * Vitals:? * Physical Examination:? Assessment: * Assessment: 1.?Right upper quadrant pain - R10.11???2.?Disease of gallbladder, unspecified - K82.9??? Plan: * Treatment: 2.?Disease of gallbladder, u nspecified?Imaging: HIDA SCAN GB WITH CCK * Procedure Codes:? * true * Date:? Generated for Roopa cruz/Gabriella/eTransmitting on:?01/17/2024 01:29 AM EST
--- OUTSIDE RECORDS SUMMARY | 2024-01-17 01:29 | XMS_ITS ---
Author Organization [facility] Address [address] [place] [address] Care Team Providers Care Equipment Scheduler Name Role Phone William REBOLLAR, Senthil Primary Care Provider Unavailab Rad Bello Unavailable [phone] Gonzalez Encounters Encounter Location Date Provider Diagnosis [address] [address] 09/15/2023 Rad Hendrix Plan Of Treatment Next Appt Details Provider Name:Rad Hendrix , 04/09/2024 10:00:00 AM, [address] [place] [address], [phone], Progress Notes * Radha BUSH ADOB:1940 (83 yo F)Acc No.[id number]:09/15/2023 Progress Note Patient:?Radha BUSH Provider:?Rad Hendrix DPM :1940???Age:83 Y???Sex:Female D ate:09/15/2023 Address:[address] [place] [address] [facility] [phone] Pcp:Senthil Thomas MD Subjective: * Chief Complaints: * ???1. Dr Gonzalez. * Medical History:? Objective: * Vitals:? Assessment: Plan: * Treatment: * Images: * The named appointment provid er may or may not be the originator of this progress note, and it is not deemed complete until electronically signed by the appointment provider. Sign off status: Pending * Provider:?Rad Hendrix DPM Date:?2023 Generated for Roopa cruz/Gabriella/Eunice on:?01/17/2024 01:28 AM EST
--- OUTSIDE RECORDS SUMMARY | 2024-01-17 01:29 | XMS_ITS ---
Author Organization Senthil Thomas III, MD Address [address] [place] [address] Care Team Providers Care Jeeper Operator Name Role Phone Senthil Thomas Primary Care Provider [phone] REASON FOR VISIT Hida Scan Social History Sex Assigned At : Social History Observation Description Sex Assigned At Female Encounters Encounter Location Date Provider Diagnosis Senthil Thomas III, MD [address] [place] [address] [place] [address] 12/27/2023 Senthil Thomas Plan Of Treatment Next Appt Details Provider Name:Senthil Thomas, 01/26/2024 09:00:00 AM, [address] [place] [address] [place], [address], Provider Name:Senthil Thomas, 09/27/2024 02:30:00 PM, [address] [place] [address] [place], [address], Progress Notes * Radha BUSHDOB:[birth year] (83 yo F)Acc No.[id number]:12/27/2023 Patient:?Radha BUSH :1940???Age:83 Y???Sex:Female Address:[place], [address] * true * Date:? Generated for Printi ng/Faxing/eTransmitting on:?01/17/2024 01:29 AM EST
--- OUTSIDE RECORDS SUMMARY | 2024-01-17 01:29 | XMS_ITS ---
Author Organization Senthil Thomas III, MD Address [address] [place] [address] Care Team Providers Care Director Pharmaceutical Name Role Phone Senthil Thomas Primary Care Provider Allergies Allergen (clinical drug ingredient) Drug/Non Drug Allergy documented on EMR Reaction Allergy Type Onset Date Status lidocaine Lidocaine Unknown Drug Allergy Active morphine Morphine anaphylaxis Drug Allergy Activ e fentanyl Fentanyl anaphylaxis Drug Allergy Activ e Results Component Value Reference Range Notes Lipid Panel (Not yet reviewe d by provider) Interpretation: Performing Lab:[address] [id number] Notes/Report: Triglycerides 120 <150 mg/dL Desirable Triglyceride: less than 150 mg/dL Borderline High Triglyceride 150-199 mg/dL High Triglyceride: 200-499 mg/dL Very High Triglyceride: greater than or equal to 5OO mg/dL Cholesterol 180 <200 mg/dL Desirable Cholesterol: less than 200 mg/dL Borderline High Cholesterol: 200-239 mg/dL High Cholesterol: greater than 239 mg/dL LDL Cholesterol Calculated 102 <100 mg/dL Desirable LDL: less than 100 mg/dL Near Optimal/Above Optimal LDL: 110-129 mg/dL Borderline High LDL: 130-159 mg/dL High LDL: 160-189 mg/dL Very High LDL: greater than or equal to 190 mg/dL HDL Cholesterol 54 >40 mg/dL Desirable HDL: greater than 40 mg/dL Note: This HDL assay may give artificially low results in patients with liver disease. Free T4 (Free Thyroxine) (No t yet reviewed by provider) Interpretation: Performing Lab:[facility], [address] [place] [address] [place] [address] Notes/Report: Free T4 (Free Thyroxine) 1.39 0.71-1.85 ng/dL Reason For Referral Reason ? 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 12/27 10:20:28 AM > ref/demo/progress notes/labs/x rays faxed to Dr Cerna office pt given appt information Referral Priority Routine Referral Appointment Date 01/09/2024 REASON FOR VISIT Unexplained right upper quadrant abdominal pain, Impression, Hyperlipidemia, GERD, Hypothyroidism, Melanoma in remission, Hypertension, Migraine Medications Medication SIG (Take, Route, Frequency, Duration) Notes Start Date End Date Status Fluticasone Furoate 27.5 MCG/SPRAY 1 spray in each nostril Nasally Once a day 09/15/2021 Active Ondansetron HCl 8 MG 1 tablet as needed Orally every 8 hours 12/19/2023 Active PARoxetine HCl 30 MG TAKE 1 TABLET BY [facility] ONCE A DAY IN THE MORNING Active Chlorthalidone 25 MG 1 tablet in the mor danielle with food Orally once a day 11/30/2023 Active Losartan Potassium 100 MG 1 tablet Orall y Once a day 01/18/2023 Active Citalopram Hydrobromide 20 MG 1 tablet Orally Once a day 09/15/2021 Active Excedrin Migraine 250-250-65 MG 2 tablets Orally Once a day Active Aspirin 325 MG 1 tablet Orally Once a day Active SUMAtriptan Succinate 50 MG 1 tablet as needed Orally Twice a day 12/25/2017 Active Fluticasone Propionate 50 MCG/ACT 1 spray in each nostril Nasally Twice a day 05/03/2021 Active Levothyroxine Sodium 88 MCG TAKE ONE TAB LET BY MOUTH EVERY MORNING ON AN EMPTY STOMACH Active Ipratropium [place] 0.03 % 2 sprays in e ach nostril Nasally Twice a day 01/13/2022 Active Omeprazole 20 MG TAKE ONE CAPSULE BY MOUTH EVERY DAY Active Simvastatin 20 MG TAKE ONE TABLET BY M OUTH EVERY EVENING Active Metoprolol Tartrate 50 MG TAKE THREE TAB LETS BY MOUTH TWICE A DAY Active Social History Tobacco Use: Social History Observation Description Date Details (start date - stop date) Former Smoker NA - NA Sex Assigned At : Social History Observation Description Sex Assigned At Female Tobacco Use/Smoking Question Answer Notes Patient is a former smoker How long has it been since you last smoked? > 10 years Additional Findings: Tobacco Non-User Ex-cigaret te smoker Problems Problem Type SNOMED Code ICD Code Onset Dates Problem Status W/U Status Risk Notes Problem 61886211 Sjogren's syndrome, with unspecified organ involvement (M35.00) Active confirmed Within the last year she has been to a dentist and an basket maker. Both of these practitioners commented on how dry her membranes were. He is concerned that she may have Sjogren's syndrome. She has been researching this on the Internet. She has requested a referral to rheumatology for further evaluation. I have agreed and sent her to rheumatology at [facility]. Problem 54319825 Hyponatremia (E87.1) Active confirmed Her serum sodium level has previously been normal. She is not taking a diuretic. On December 18, 2023 her sodium level was 1:30 and on December 29, 2023 was 131. This will be followed and reevaluated. If it persists she will need an evaluation for the syndrome of inappropriate ADH. Vital Signs Temperature 97.0 degrees Fahrenheit 12/28/19 24 Blood pressure systolic 145 mm Hg 12/28/19 24 Blood pressure diastolic 75 mm Hg 024 Heart Rate 58 /min 12/28/2023 Height 63 in 12/28/2023 Weight 162 lbs 12/28/2023 BMI 28.69 kg/m2 12/28/2023 Encounters Encounter Location Date Provider Diagnosis Senthil Thomas III, MD [address] [place] [address] [place] [address] 12/28/2023 Senthil Thomas Acquired hypothyroid ism E03.9 ; Right upper quadrant pain R10.11 ; Irritable bowel syndrome without diarrhea K58.9 ; Disease of gallbladder, unspecified K82.9 ; Sjogren's syndrome, with unspecified organ involvement M35.00 ; Gastroesophageal reflux disease without esophagitis K21.9 ; Former smoker Z87.891 ; History of malignant melanoma Z85.820 ; Reactive depression F32.9 ; Hyperlipidemia, unspecified hyperlipidemia type E78.5 ; Overweight E66.3 and Hyponatremia E87.1 Assessments Encounter Date Diagnosis (ICD Code) Assessment Notes T reatment Notes Treatment Clinical Notes 12/28/2023 Acquired hypothyroidism (ICD-10 - E03.9) She continues on Levothyroxine. Her TSH values have been normal. 12/28/2023 Right upper quadrant pain (ICD-10 - R10.11) I have requested a surgical consultation to see if we can pinpoint the cause of the right upper quadrant abdominal pain and to evaluate the possibility of acalculous cholecystitis. 12/28/2023 Irritable bowel syndrome without diarrhea (ICD-10 - K58.9) She has lived with IBS for a long time and is very familiar with its symptoms and manifestations. She clearly says the right upper quadrant pain is a different discomfort in unrelated to IBS. 12/28/2023 Disease of gallbladder, unspecified (ICD-10 - K82.9) She has what was called a slight amount of sludge in the gallbladder. A HIDA scan was normal. We are going to have a surgeon evaluate her for acalculous cholecystitis. 12/28/2023 Sjogren's syndrome, with unspecified organ involvement (ICD-10 - M35.00) Within the last year she has been to a dentist and an basket maker. Both of these practitioners commented on how dry her membranes were. He is concerned that she may have Sjogren's syndrome. She has been researching this on the Internet. She has requested a referral to rheumatology for further evaluation. I have agreed and sent her to rheumatology at [facility]. 12/28/2023 Gastroesophageal reflux disease without esophagitis (ICD-10 - K21.9) She continues on her alkalinization therapyy. 12/28/2023 Former smoker (ICD-1 0 - Z87.891) She seems highly motivated not to smoke. We have discussed a plan to prevent relapse in time, stress or illness. 12/28/2023 History of malignant melanoma (ICD-10 - Z85.820) No neoplastic lesions were seen on the skin on today's examination. There was no sign of recurrent melanoma. 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 She was more anxious today and depressed. No change in her regimen as needed. 12/28/2023 Hyperlipidemia, unspecified hyperlipidemia type (ICD-10 - E78.5) Her lipids have been stable and no change in her regimen was made today. 12/28/2023 Overweight (ICD-10 - E66.3) She remains overweight. She is trying to lose weight and consume a healthy diet. We reviewed her weight loss strategy today. 12/28/2023 Hyponatremia (ICD-10 - E87.1) Her serum sodium level has previously been normal. She is not taking a diuretic. On December 18, 2023 her sodium level was 1:30 and on December 29, 2023 was 131. This will be followed and reevaluated. If it persists she will need an evaluation for the syndrome of inappropriate ADH. Plan Of Treatment Medication Medication Name Sig Start Date Stop Date Notes Fluticasone Furoate 27.5 MCG/SPRAY 1 spray in each nostril Nasally Once a day 09/15/2021 Ondansetron HCl 8 MG 1 tablet as needed Orally every 8 hours 12/19/2023 PARoxetine HCl 30 MG TAKE 1 TABLET BY MO UTH ONCE A DAY IN THE MORNING Chlorthalidone 25 MG 1 tablet in the mor danielle with food Orally once a day 11/30/2023 Losartan Potassium 100 MG 1 tablet Orall y Once a day 01/18/2023 Citalopram Hydrobromide 20 MG 1 tablet O rally Once a day 09/15/2021 Excedrin Migraine 250-250-65 MG 2 tablet s Orally Once a day Aspirin 325 MG 1 tablet Orally Once a day SUMAtriptan Succinate 50 MG 1 tablet as needed Orally Twice a day 12/25/2017 Fluticasone Propionate 50 MCG/ACT 1 spra y in each nostril Nasally Twice a day 05/03/2021 Levothyroxine Sodium 88 MCG TAKE ONE TAB LET BY MOUTH EVERY MORNING ON AN EMPTY STOMACH Ipratropium [place] 0.03 % 2 sprays in e ach nostril Nasally Twice a day 01/13/2022 Omeprazole 20 MG TAKE ONE CAPSULE BY MOUTH EVERY DAY Simvastatin 20 MG TAKE ONE TABLET BY M OUTH EVERY EVENING Metoprolol Tartrate 50 MG TAKE THREE TAB LETS BY MOUTH TWICE A DAY Pending Test Test Name Order Date PROFILE, FASTING (COMPREHENSIVE METABOLI C) 12/28/2023 TSH (THYROID STIMULATING HORMONE) 2023 RHEUMATOID FACTOR (RA, RF) 12/28/2023 CBC w DIFF 12/28/2023 SED RATE (ESR) 12/28/2023 IMMUNOFIXATION PANEL, SERUM (IEP) 2023 SRIDHAR (JESSIE) 12/28/2023 Urinalysis 12/28/2023 Lipid Panel 12/28/2023 Free T4 (Free Thyroxine) 12/28/2023 Referrals Referral Date Details 12/28/2023 12/28/2023, ? acalcu lous choleycyctitis slug in gallbladder, Adryan Cerna Next Appt Details Follow Up: as scheduled, Alana son: ov review labs Provider Name:Senthil Thomas, 01/26/2024 09:00:00 AM, [address] [place] [address] [address], [place], [id number], Provider Name:Senthil Thomas, 09/27/2024 02:30:00 PM, [address] [place] [address] [address], [place], [id number], Progress Notes * Radha BUSHDOB:[birth year] (83 yo F)Acc No.[id number]:12/28/2023 Progress Notes Patient:?Radha BUSH Provider:?Senthil Thomas MD :1940???Age:83 Y???Sex:Female D ate:12/28/2023 Address:[address] [place] [id number] Subjective: * Chief Complaints: * ???Unexplained right upper q uadrant abdominal painImpressionHyperlipidemiaGERDHypothyroidismMelanoma in remissionHypertensionMigraine * HPI: ???COVID-19 Screening:?Questions?Have you experienced fever, chills, cough, sore throat, shortness of breath, difficulty breathing, muscle aches, loss of taste or smell??No ?Have you been exposed to the virus within the last 10 days??No ?Have you travelled internationally in the last 10 days??No ?Have you been exposed to COVID-19 in the past??Yes ???:?The patient, an 83-year-old female, presented with ongoing abdominal discomfort in her back and front, predominantly on the right side. She reported that these symptoms have been persistent over the years and have previously led to hospital visits. The patient also mentioned a fall she had taken in the past, attributing some of her aches and pains to possible arthritis. She reported intermittent episodes of nausea that come and go, sometimes making her feel weak. She also reported a sensation of not being able to take a deep breath at times, which she associated with gas. The patient also reported a loss of smell and taste, dry mouth, and dry eyes. She mentioned having undergone two laser surgeries for her eyes. She also reported a history of constipation and bloating. The patient also mentioned that she has been on a water pill for high blood pressure, which was last measured at 145/75. She remains quite concerned about not having a diagnosis for the right upper quadrant abdominal pain.? Her examination today has in the past was unremarkable.? On May 03, 2023 abdominal ultrasound showed no findings.? On August 02, 2023 a HIDA scan showed no obstruction of the bile system.? On August 17, 2023 CT scan of the abdomen was unremarkable her blood work has been unremarkable.? She is able to eat and drink and has had no nausea or vomiting.? Her bowels are stable.? The pain is always localized to the letter proctored.? A more intensive examination will be made I will get a chest x-ray and a surgical consultation.? We will explore the possibility of acalculous cholecystitis.? She does have sludge in the gallbladder.? Other obscure etiologies will be considered such as porphyria. * ROS:?General/Constitutional:?pain?Intermittent sharp right upper quadrant abdominal pain.?Chills?denies.?Fatigue?admits.?Fever?denies.?ENT:?Decreased hearing?mild.?Admits?Dry mouth.?Respiratory:?Cough?denies.?Cardiovascular:?Chest pain with exertion?denies.?Dyspnea on exertion?denies.?Shortness of breath?denies.?Gastrointestinal:?Admits?Constipation,?occasional.?Decreased appetite?denies.?Diarrhea?denies.?Heartburn?occasional.?Admits?Nausea,?denies.?R ectal bleeding?denies.?Vomiting?denies.?Hematology:?bruising?denies.?petechiae?denies.?Swollen glands?none have been noted.?Genitourinary:?Frequent urination?at night.?Musculoskeletal:?Muscle aches?denies.?Painful joints?denies.?Sciatica?denies.?Weakness?denies.?Skin:?Itching?denies.?Rash?denies.?Skin lesion(s)?denies.?Neurologic:?Difficulty speaking?denies.?Dizziness?denies.?Headache?Occasional migraines.?Low back pain?denies.?Psychiatric:?Depressed mood?Anxiety.? * Medical History:? * Surgical History:?bilateral cataract endoscopy and colonoscopy, negative results 05/08/2015gravida 3 para 3 Excision of melanoma from nose Laser eye surgery No history * Hospitalization/Major Diagno stic Procedure:?No history * Family History:?Father: dece ased 60 yrs, diagnosed with CVD, HTN.?Mother: 91 yrs, diagnosed with HTN.?Siblings: alive.?1 sister(s) . .? Her sister has diabetes mellitus. Her mother suffered from dementia. * Social History:?Tobacco Use:?Tobacco Use/Smoking?Patient is a?former smoker ?How long has it been since you last smoked??> 10 years ?Additional Findings: Tobacco Non-User?Ex-cigarette smoker ???She has been a nonsmoker for over 45 years and her , Antwan, also quit 25 years ago. She does not consume alcohol and has never taken illegal drugs. * Medications:?TakingOndansetr on HCl 8 MG Tablet 1 tablet as needed Orally every 8 hours Metoprolol Tartrate 50 MG Tablet TAKE THREE TABLETS BY MOUTH TWICE A DAY Omeprazole 20 MG Capsule Delayed Release TAKE ONE CAPSULE BY MOUTH EVERY DAY Simvastatin 20 MG Tablet TAKE ONE TABLET BY MOUTH EVERY EVENING Levothyroxine Sodium 88 MCG Tablet TAKE ONE TABLET BY MOUTH EVERY MORNING ON AN EMPTY STOMACH Ipratropium [place] 0.03 % Solution 2 sprays in each nostril Nasally Twice a day SUMAtriptan Succinate 50 MG Tablet 1 tablet as needed Orally Twice a day Fluticasone Propionate 50 MCG/ACT Suspension 1 spray in each nostril Nasally Twice a day Excedrin Migraine 250-250-65 MG Tablet 2 tablets Orally Once a day Aspirin 325 MG Tablet 1 tablet Orally Once a day Citalopram Hydrobromide 20 MG Tablet 1 tablet Orally Once a day Fluticasone Furoate 27.5 MCG/SPRAY Suspension 1 spray in each nostril Nasally Once a day Losartan Potassium 100 MG Tablet 1 tablet Orally Once a day PARoxetine HCl 30 MG Tablet TAKE 1 TABLET BY MOUTH ONCE A DAY IN THE MORNING Chlorthalidone 25 MG Tablet 1 tablet in the morning with food Orally once a day Medication List reviewed and reconciled with the patientTaking Ondansetron HCl 8 MG Tablet 1 tablet as needed Orally every 8 hours Taking Metoprolol Tartrate 50 MG Tablet TAKE THREE TABLETS BY MOUTH TWICE A DAY Taking Omeprazole 20 MG Capsule Delayed Release TAKE ONE CAPSULE BY MOUTH EVERY DAY Taking Simvastatin 20 MG Tablet TAKE ONE TABLET BY MOUTH EVERY EVENING Taking Levothyroxine Sodium 88 MCG Tablet TAKE ONE TABLET BY MOUTH EVERY MORNING ON AN EMPTY STOMACH Taking Ipratropium [place] 0.03 % Solution 2 sprays in each nostril Nasally Twice a day Taking SUMAtriptan Succinate 50 MG Tablet 1 tablet as needed Orally Twice a day Taking Fluticasone Propionate 50 MCG/ACT Suspension 1 spray in each nostril Nasally Twice a day Taking Excedrin Migraine 250-250-65 MG Tablet 2 tablets Orally Once a day Taking Aspirin 325 MG Tablet 1 tablet Orally Once a day Taking Citalopram Hydrobromide 20 MG Tablet 1 tablet Orally Once a day Taking Fluticasone Furoate 27.5 MCG/SPRAY Suspension 1 spray in each nostril Nasally Once a day Taking Losartan Potassium 100 MG Tablet 1 tablet Orally Once a day Taking PARoxetine HCl 30 MG Tablet TAKE 1 TABLET BY MOUTH ONCE A DAY IN THE MORNING Taking Chlorthalidone 25 MG Tablet 1 tablet in the morning with food Orally once a day Medication List reviewed and reconciled with the patient * Allergies:?Morphine: anaphyl axis - AllergyFentanyl: anaphylaxis - AllergyLidocaine: Contraindicationno[Allergies Verified] Objective: * Vitals:?Ht: 63, Wt:162, BMI: 28.69, BP:145/75, HR:58, Temp:97.0, Ht-cm: 160.02, Wt-k.48. * ???Past Orders: ???Lab:Gamma Glutamyl Transp eptidase (Order Date - 12/21/2023) (Collection Date & Time - 12/21/2023 07:25 AM) ? Value Reference Range ?Gamma Glutamyl Transpeptidase 50 H 7-33 - U/L ???Lab:Lactate Dehydrogenase (Order Date - 12/21/2023) (Collection Date & Time - 12/21/2023 07:25 AM) ? Value Reference Range ?Lactate Dehydrogenase 182 122-220 - U/L ???Lab:Amylase (Order Date - 12/19/2023) (Collection Date & Time - 12/21/2023 07:25 AM) ? Value Reference Range ?Amylase 87 28-100 - U/L ?Clinical Info: JOHN Stephen FAX COMPLETED RESULTS TO [phone] ???Lab:Lipase (Order Date - 12/19/2023) (Collection Date & Time - 12/21/2023 07:25 AM) ? Value Reference Range ?Lipase 40 8-95 - U/L ?Clinical Info: JOHN Stephen FAX COMPLETED RESULTS TO [phone] Lab:Comprehensive Met. Panel * Collection Date 12/21/2023 11/10/2020 02/17/2020 Collection Time 07:25 AM 04:09 PM 07:27 AM Order Date 12/21/2023 11/10/2020 02/17/2020 Sodium 130?L (Ref Range: 135-145 mmol/L) 141 (Ref Range: 135-145 mmol/L) 146?H (Ref Range: 135-145 mmol/L) Bilirubin Total 0.5 (Ref Range: 0.0-1.0 mg/dL) 0.3 (Ref Range: 0.0-1.0 mg/dL) 0.5 (Ref Range: 0.0-1.0 mg/dL) Aspartate Amino Transferase 25 (Ref Range: 5-31 U/L) 11 (Ref Range: 5-31 U/L) 15 (Ref Range: 5-31 U/L) Alanine Aminotransferase 25 (Ref Range: 0-31 U/L) 7 (Ref Range: 0-31 U/L) 15 (Ref Range: 0-31 U/L) Total Protein 6.6 (Ref Range: 6.5-8.0 g/dL) 6.4?L (Ref Range: 6.5-8.0 g/dL) 6.8 (Ref Range: 6.5-8.0 g/dL) Albumin Level 4.1 (Ref Range: 3.5-5.0 g/dL) 4.1 (Ref Range: 3.5-5.0 g/dL) 4.4 (Ref Range: 3.5-5.0 g/dL) Alkaline Phosphatase 76 (Ref Range: 39-117 U/L) 73 (Ref Range: 39-117 U/L) 83 (Ref Range: 39-117 U/L) Potassium 4.3 (Ref Range: 3.3-5.1 mmol/L) 4.1 (Ref Range: 3.3-5.1 mmol/L) 4.9 (Ref Range: 3.3-5.1 mmol/l) Chloride 91?L (Ref Range: 96-108 mmol/L) 107 (Ref Range: 96-108 mmol/L) 105 (Ref Range: 96-108 mmol/L) Carbon Dioxide 33?H (Ref Range: 22-29 mmol/L) 28 (Ref Range: 22-29 mmol/L) 32?H (Ref Range: 22-29 mmol/L) Anion Gap 10?L (Ref Range: 12-20) 10?L (Ref Range: 12-20) 14 (Ref Range: 12-20) Blood Urea Nitrogen 12 (Ref Range: 9-16 mg/dL) 8?L (Ref Range: 9-16 mg/dL) 13 (Ref Range: 9-16 mg/dL) Creatinine 0.86 (Ref Range: 0.5-1.4 mg/dL) 0.80 (Ref Range: 0.5-1.4 mg/dL) 0.80 (Ref Range: 0.5-1.4 mg/dL) Estimated Glomerular Filt Rate > 60 > 60 > 60 Glucose Random 97 (Ref Range: 60-115 mg/dL) 114 (Ref Range: 60-115 mg/dL) 99 (Ref Range: 60-115 mg/dL) Calcium 9.3 (Ref Range: 8.4-10.2 mg/dL) 9.4 (Ref Range: 8.4-10.2 mg/dL) 9.7 (Ref Range: 8.4-10.2 mg/dL) Creatinine Clr Calc Pharmacy NR 59.3 NR * Lab:Complete Blood Count Aut o Diff * Collection Date 12/21/2023 08/15/2023 06/09/2023 Collection Time 07:25 AM 07:33 AM 07:55 AM Order Date 12/21/2023 08/15/2023 06/09/2023 White Blood Count 6.6 (Ref Range: 4.8-10.8 X10*3/uL) 5.8 (Ref Range: 4.8-10.8 X10*3/uL) 5.6 (Ref Range: 4.8-10.8 X10*3/uL) Red Blood Count 4.10?L (Ref Range: 4.20-5.50 X10*6/uL) 4.06?L (Ref Range: 4.20-5.50 X10*6/uL) 4.00?L (Ref Range: 4.20-5.50 X10*6/uL) Hemoglobin 13.8 (Ref Range: 12.0-16.0 g/dl) 13.6 (Ref Range: 12.0-16.0 g/dl) 13.4 (Ref Range: 12.0-16.0 g/dl) Hematocrit 39.1 (Ref Range: 37.0-47.0 %) 40.8 (Ref Range: 37.0-47.0 %) 40.7 (Ref Range: 37.0-47.0 %) Mean Corpuscular Volume 95.4 (Ref Range: 80.0-98.0 fL) 100.5?H (Ref Range: 80.0-98.0 fL) 101.8?H (Ref Range: 80.0-98.0 fL) Mean Corpuscular Hemoglobin 33.7?H (Ref Range: 27.0-33.0 pg) 33.5?H (Ref Range: 27.0-33.0 pg) 33.5?H (Ref Range: 27.0-33.0 pg) Mean Corpuscular HGB Conc 35.3?H (Ref Range: 31.0-35.0 g/dl) 33.3 (Ref Range: 31.0-35.0 g/dl) 32.9 (Ref Range: 31.0-35.0 g/dl) Red Cell Distribution Width 11.8 (Ref Range: 11.0-16.0 %) 12.3 (Ref Range: 11.0-16.0 %) 12.5 (Ref Range: 11.0-16.0 %) Platelet Count 296 (Ref Range: 160-400 X10*3/uL) 232 (Ref Range: 160-400 X10*3/uL) 238 (Ref Range: 160-400 X10*3/uL) Mean Platelet Volume 10.7 (Ref Range: 9.4-12.3 fL) 11.2 (Ref Range: 9.4-12.3 fL) 10.8 (Ref Range: 9.4-12.3 fL) Neutrophils Percent Auto 53.0 (Ref Range: 45-73 %) 56.3 (Ref Range: 45-73 %) 57.1 (Ref Range: 45-73 %) Imm Gran Pct Auto 0.5?H (Ref Range: 0.0-0.4 %) 0.5?H (Ref Range: 0.0-0.4 %) 0.2 (Ref Range: 0.0-0.4 %) Lymphocytes Percent Auto 35.4 (Ref Range: 20-40 %) 33.8 (Ref Range: 20-40 %) 32.8 (Ref Range: 20-40 %) Monocytes Percent Auto 8.3 (Ref Range: 2-11 %) 6.7 (Ref Range: 2-11 %) 6.8 (Ref Range: 2-11 %) Eosinophils Percent Auto 2.3 (Ref Range: 0-4 %) 2.2 (Ref Range: 0-4 %) 2.7 (Ref Range: 0-4 %) Basophils Percent Auto 0.5 (Ref Range: 0-2 %) 0.5 (Ref Range: 0-2 %) 0.4 (Ref Range: 0-2 %) NRBC Pct Auto 0.0 (Ref Range: 0.0-0.2 /100WBC) 0.0 (Ref Range: 0.0-0.2 /100WBC) 0.0 (Ref Range: 0.0-0.2 /100WBC) Neutrophils Absolute Auto 3.5 (Ref Range: 2.0-8.3 x10*3/uL) 3.3 (Ref Range: 2.0-8.3 x10*3/uL) 3.2 (Ref Range: 2.0-8.3 x10*3/uL) Imm Gran Abs Auto 0.03 (Ref Range: 0.00-0.03 X10*3/uL) 0.03 (Ref Range: 0.00-0.03 X10*3/uL) 0.01 (Ref Range: 0.00-0.03 X10*3/uL) Lymphocytes Absolute Auto 2.4 (Ref Range: 1.2-4.9 X10*3/uL) 2.0 (Ref Range: 1.2-4.9 X10*3/uL) 1.8 (Ref Range: 1.2-4.9 X10*3/uL) Monocytes Absolute Auto 0.6 (Ref Range: 0.1-1.2 X10*3/uL) 0.4 (Ref Range: 0.1-1.2 X10*3/uL) 0.4 (Ref Range: 0.1-1.2 X10*3/uL) Eosinophils Absolute Auto 0.2 (Ref Range: 0.0-0.4 X10*3/uL) 0.1 (Ref Range: 0.0-0.4 X10*3/uL) 0.2 (Ref Range: 0.0-0.4 X10*3/uL) Basophils Absolute Auto 0.0 (Ref Range: 0.0-0.2 X10*3/uL) 0.0 (Ref Range: 0.0-0.2 X10*3/uL) 0.0 (Ref Range: 0.0-0.2 X10*3/uL) NRBC Abs Auto 0.000 (Ref Range: 0.0-0.012 X10*3/uL) 0.000 (Ref Range: 0.0-0.012 X10*3/uL) 0.000 (Ref Range: 0.0-0.012 X10*3/uL) * Examination: ???General Examination: ?GENERAL APPEARANCE:?pleasant, well nourished, well developed, in no acute distress, calm and relaxed, overweight, elderly woman.?HEAD:?atraumatic, normocephalic.?EYES:?eomi, perrla, anicteric, conjugate.?EARS:?normal.?NOSE:?septum intact, Small surgical scar well-healed.?ORAL CAVITY:?normal, unremarkable.?NECK/THYROID:?no jugular venous distention, no carotid bruit, thyroid normal.?LYMPH NODES:?no enlarged lymph nodes,spleen normal.?SKIN:?no suspicious lesions, anicteric, Healed ressection scars.?HEART:?no clicks, gallops, murmurs, or rubs, regular rhythm, S1, S2 normal, no s3, or vascular bruits.?LUNGS:?clear to auscultation, No abnormalities right lower quadrant.?BREASTS:?Not examined.?ABDOMEN:?bowel sounds normal, no ascites, no organomegaly, no mass, Right upper quadrant is nontender, no guarding or rigidity, no hepatosplenomegaly, no hernias present, no masses palpable, no rebound tenderness.?RECTAL EXAM:?not examined.?MUSCULOSKELETAL:?extremities unremarkable, no clubbing, cyanosis or edema.?PERIPHERAL PULSES:?normal.?NEUROLOGIC:?alert and oriented, cranial nerves 2-12 grossly intact, deep tendon reflexes 2+ symmetrical, motor strength normal upper and lower extremities, sensory exam intact.?PSYCH:?alert, oriented, anxious appearing, cognitive function intact, cooperative with exam, good eye contact, speech clear.? Assessment: * Assessment: 1.?Right upper quadrant pain - R10.11 (Primary)???Notes :I have requested a surgical consultation to see if we can pinpoint the cause of the right upper quadrant abdominal pain and to evaluate the possibility of acalculous cholecystitis.???2.?Acquired hypothyroidism - E03.9???Notes :She continues on Levothyroxine. Her TSH values have been normal.???3.?Irritable bowel syndrome without diarrhea - K58.9???Notes :She has lived with IBS for a long time and is very familiar with its symptoms and manifestations.? She clearly says the right upper quadrant pain is a different discomfort in unrelated to IBS.???4.?Disease of gallbladder, unspecified - K82.9???Notes :She has what was called a slight amount of sludge in the gallbladder.? A HIDA scan was normal.? We are going to have a surgeon evaluate her for acalculous cholecystitis.???5.?Sjogren's syndrome, with unspecified organ involvement - M35.00???Notes :Within the last year she has been to a dentist and an basket maker.? Both of these practitioners commented on how dry her membranes were.? He is concerned that she may have Sjogren's syndrome.? She has been researching this on the Internet.? She has requested a referral to rheumatology for further evaluation.? I? have agreed and sent her to rheumatology at [facility].???6.?Gastroesophageal reflux disease without esophagitis - K21.9???Notes :She continues on her alkalinization therapyy.???7.?Former smoker - Z87.891???Notes :She seems highly motivated not to smoke. We have discussed a plan to prevent relapse in time, stress or illness.???8.?History of malignant melanoma - Z85.820???Notes :No neoplastic lesions were seen on the skin on today's examination. There was no sign of recurrent melanoma.???9.?Reactive depression - F32.9???Notes :Her depression is mild and episodic. She was more anxious today and depressed. No change in her regimen as needed.???10.?Hyperlipidemia, unspecified hyperlipidemia type - E78.5???Notes :Her lipids have been stable and no change in her regimen was made today.???11.?Overweight - E66.3???Notes :She remains overweight. She is trying to lose weight and consume a healthy diet. We reviewed her weight loss strategy today.???12.?Hyponatremia - E87.1???Notes :Her serum sodium level has previously been normal.? She is not taking a diuretic.? On December 18, 2023 her sodium level was 1:30 and on December 29, 2023 was 131.? This will be followed and reevaluated.? If it persists she will need an evaluation for the syndrome of inappropriate ADH.??? Plan: * Treatment: ? Value Reference Range ?Triglycerides 120 <150 - mg /dL * ?Cholesterol 180 <200 - mg/d L * ?LDL Cholesterol Calculated 102 H <100 - mg/dL * ?HDL Cholesterol 54 >40 - m g/dL ?LAB: Free T4 (Free Thyroxine) (Collection Date & Time - 12/29/2023 08:24 AM)* ? Value Reference Range ?Free T4 (Free Thyroxine) 1.39 0.71-1.85 - ng/dL 2.?Acquired hypothyroidism? Continue Metoprolol Tartrate Tablet, 50 MG, TAKE THREE TABLETS BY MOUTH TWICE A DAY;?Continue Omeprazole Capsule Delayed Release, 20 MG, TAKE ONE CAPSULE BY MOUTH EVERY DAY;?Continue Simvastatin Tablet, 20 MG, TAKE ONE TABLET BY MOUTH EVERY EVENING;?Continue Levothyroxine Sodium Tablet, 88 MCG, TAKE ONE TABLET BY MOUTH EVERY MORNING ON AN EMPTY STOMACH;?Continue Ipratropium [place] Solution, 0.03 %, 2 sprays in each nostril, Nasally, Twice a day;?Continue SUMAtriptan Suc cinate Tablet, 50 MG, 1 tablet as needed, Orally, Twice a day;?Continue Fluticasone PropionateSuspension, 50 MCG/ACT, 1 spray in each nostril, Nasally, Twice a day;?Continue Excedrin Migraine Tablet, 250-250-65 MG, 2 tablets, Orally, Once a day;?Continue Aspirin Tablet, 325 MG, 1 tablet, Orally, Once a day;?Continue Citalopram Hydrobromide Tablet, 20 MG, 1 tablet, Orally, Once a day;?Continue Fluticasone Furoate Suspension, 27.5 MCG/SPRAY, 1 spray in each nostril, Nasally, Once a day;?Continue Losartan Potassium Tablet, 100 MG, 1 tablet, Orally, Once a day;?Continue PARoxetine HCl Tablet, 30 MG, TAKE 1 TABLET BY MOUTH ONCE A DAY IN THE MORNING;?Continue Chlorthalidone Tablet, 25 MG, 1 tablet in the morning with food, Orally, once a day.?LAB: PROFILE, FASTING (COMPREHENSIVE METABOLIC) ?LAB: TSH (THYROID STIMULATING HORMONE) ?LAB: RHEUMATOID FACTOR (RA, RF) ?LAB: CBC w DIFF ?LAB: SED RATE (ESR) ?LAB: IMMUNOFIXATION PANEL, SERUM (IEP) ?LAB: SRIDHAR (JESSIE) ?LAB: Urinalysis ?LAB: Lipid Panel (Collection Date & Time - 12/29/2023 08:24 AM)* ? Value Reference Range ?Triglycerides 120 <150 - mg /dL * ?Cholesterol 180 <200 - mg/d L * ?LDL Cholesterol Calculated 102 H <100 - mg/dL * ?HDL Cholesterol 54 >40 - m g/dL ?LAB: Free T4 (Free Thyroxine) (Collection Date & Time - 12/29/2023 08:24 AM)* ? Value Reference Range ?Free T4 (Free Thyroxine) 1.39 0.71-1.85 - ng/dL 3.?Irritable bowel syndrome without diarrhea?LAB: PROFILE, FASTING (COMPREHENSIVE METABOLIC) ?LAB: TSH (THYROID STIMULATING HORMONE) ?LAB: RHEUMATOID FACTOR (RA, RF) ?LAB: CBC w DIFF ?LAB: SED RATE (ESR) ?LAB: IMMUNOFIXATION PANEL, SERUM (IEP) ?LAB: SRIDHAR (JESSIE) ?LAB: Urinalysis ?LAB: Lipid Panel (Collection Date & Time - 12/29/2023 08:24 AM)* ? Value Reference Range ?Triglycerides 120 <150 - mg /dL * ?Cholesterol 180 <200 - mg/d L * ?LDL Cholesterol Calculated 102 H <100 - mg/dL * ?HDL Cholesterol 54 >40 - m g/dL ?LAB: Free T4 (Free Thyroxine) (Collection Date & Time - 12/29/2023 08:24 AM)* ? Value Reference Range ?Free T4 (Free Thyroxine) 1.39 0.71-1.85 - ng/dL 4.?Disease of gallbladder, unspecified?LAB: PROFILE, FASTING (COMPREHENSIVE METABOLIC) ?LAB: TSH (THYROID STIMULATING HORMONE) ?LAB: RHEUMATOID FACTOR (RA, RF) ?LAB: CBC w DIFF ?LAB: SED RATE (ESR) ?LAB: IMMUNOFIXATION PANEL, SERUM (IEP) ?LAB: SRIDHAR (JESSIE) ?LAB: Urinalysis ?LAB: Lipid Panel (Collection Date & Time - 12/29/2023 08:24 AM)* ? Value Reference Range ?Triglycerides 120 <150 - mg /dL * ?Cholesterol 180 <200 - mg/d L * ?LDL Cholesterol Calculated 102 H <100 - mg/dL * ?HDL Cholesterol 54 >40 - m g/dL ?LAB: Free T4 (Free Thyroxine) (Collection Date & Time - 12/29/2023 08:24 AM)* ? Value Reference Range ?Free T4 (Free Thyroxine) 1.39 0.71-1.85 - ng/dL ? Referral To:Adryan Cerna??General Surgery ?Reason:? 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 Value Reference Range ?Triglycerides 120 <150 - mg /dL * ?Cholesterol 180 <200 - mg/d L * ?LDL Cholesterol Calculated 102 H <100 - mg/dL * ?HDL Cholesterol 54 >40 - m g/dL ?LAB: Free T4 (Free Thyroxine) (Collection Date & Time - 12/29/2023 08:24 AM)* ? Value Reference Range ?Free T4 (Free Thyroxine) 1.39 0.71-1.85 - ng/dL 6.?Others? Continue Ondansetron HCl Tablet, 8 MG, 1 tablet as needed, Orally, every 8 hours.? Referral To:Adryan Cerna??General Surgery ?Reason:? 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 * Preventive Medicine:? ??Counseling:?Care goal follow-up plan:?Counseling for abnormal BMI given?Yes ?Above Normal BMI Follow-up?Dietary management education, guidance, and counseling, Dietary needs education, Exercise promotion: strength training, Exercise promotion: stretching, Feeding regime, Giving encouragement to exercise, Lifestyle education regarding diet, Nutrition / feeding management, Nutrition therapy, Prescribed activity/exercise education, Prescribed diet education, Prescribed dietary intake, Special diet education, Weight monitoring , Intervention, Order not done: Medical or Other reason not done ?Smoking/Tobacco Use?Patient counseled on the dangers of tobacco use and urged to quit.?12/28/2023 * Follow Up:?as scheduled (Sulligent son: ov review labs) * Images: * Sign off status: Completed true * Provider:?Senthil Thomas MD Date:?12/08 Generated for Roopa cruz/Gabriella/eTzhannaitting on:?01/17/2024 01:29 AM EST History and Physical Notes * HPI (History of Present Illness) Category Sub-Category Detail Notes COVID-19 Screening Questions Have you expe rienced fever, chills, cough, sore throat, shortness of breath, difficulty breathing, muscle aches, loss of taste or smell?: No Have you been exposed to the virus with n the last 10 days?: No Have you travelled internationally in [facility] last 10 days?: No Have you been exposed to COVID-19 in the past?: Yes Examination Category Sub-Category Detail Notes General Examination GENERAL APPEARANCE: pleasant , well nourished, well developed, in no acute distress, calm and relaxed, overweight, elderly woman HEAD: atraumatic, normocep halic EYES: eomi, perrla, anicte damari, conjugate EARS: normal NOSE: septum intact, Small surgical scar well-healed NECK/THYROID: no jugular venous di stention, no carotid bruit, thyroid normal HEART: no clicks, gallops, murmurs, or rubs, regular rhythm, S1, S2 normal, no s3, or vascular bruits LUNGS: clear to auscultatio n, No abnormalities right lower quadrant ABDOMEN: bowel sounds normal, no ascites, no organomegaly, no mass, Right upper quadrant is nontender, no guarding or rigidity, no hepatosplenomegaly, no hernias present, no masses palpable, no rebound tenderness NEUROLOGIC: alert and oriented, cranial nerves 2-12 grossly intact, deep tendon reflexes 2+ symmetrical, motor strength normal upper and lower extremities, sensory exam intact SKIN: no suspicious lesion s, anicteric, Healed ressection scars PERIPHERAL PULSES: normal BREASTS: Not examined MUSCULOSKELETAL: extremities unremark able, no clubbing, cyanosis or edema LYMPH NODES: no enlarged lymph no jose,spleen normal RECTAL EXAM: not examined PSYCH: alert, oriented, anx ious appearing, cognitive function intact, cooperative with exam, good eye contact, speech clear ORAL CAVITY: normal, unremarkable Consultation Request Notes Referral Date Referring Provider Referred Provider Not 12/28/2023 Senthil Thomas John ? 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
--- OUTSIDE RECORDS SUMMARY | 2024-01-17 01:29 | XMS_ITS | Patient Health Record ---
Author Organization 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 Name Role Phone Senthil Thomas MD Primary Care Provider Unavailab Rad Bello Unavailable [phone] Allergies No Known Allergies Reason For Referral No Information Medications Medication SIG (Take, Route, Frequency, Duration) Notes Start Date End Date Status Metoprolol Tartrate Active hydroCHLOROthiazide Not-Taking Omeprazole Magnesium Active Probiotic Active Dicyclomine HCl PRN Acti ve Citalopram Hydrobromide Not-Taking Dry Eyes Active LORazepam 0.5 MG Orally PRN Not -Taking Levothyroxine Sodium 88 MCG 1 tablet on an empty stomach in the morning Orally Once a day for 30 day(s) Active CeleXA 20 MG Orally Not-Darrick ing PARoxetine HCl Activ e PROzac Not-Taking Simvastatin Active Losartan Potassium 100 MG Oral for 30 Days Active Ammonium Lactate 12 % 1 application Externally Twice a day for 30 days Active Calcium + D 600-200 MG-UNIT 1 tablet wit h food Orally Once a day Active Paxil 30 MG Orally Once a day Not-Taking Immunizations Vaccine Route Administration Date Status Comme nts COVID-19 Moderna Vaccine Unknown 04/15/2020 Administere d 1st 03/19/2020 Influenza Unknown 11/06/2021 Administered Social History Tobacco Use: Social History Observation [...] Are you an other tobacco user? 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, with unspecified presence of clinical manifestation (I70.203) Active confirmed Vital Signs Blood pressure diastolic 75 mm Hg 01/09/2024 Height 5 ft 4 in in 01/09/2024 Blood pressure systolic 140 mm Hg 01/09/2024 Weight 163 lbs 01/09/2024 BMI 27.98 kg/m2 01/09/2024 Procedures Procedure Date Ordered Date Performed Result Body Sit e 56572-BILLONV NAIL, 6 OR MORE 03/17/2023 N/A 85301-SUGL SKIN LESIONS, 2 TO 4 03/17/2023 N/A 10548-HRKAQHI NAIL, 6 OR MORE 06/16/2023 N/A 46774-EMHT SKIN LESIONS, 2 TO 4 06/16/2023 N/A 24827-HGGZYBZ NAIL, 6 OR MORE 10/06/2023 N/A 25558-LKMT SKIN LESIONS, 2 TO 4 10/06/2023 N/A 20318-NBXTNMQ NAIL, 6 OR MORE 01/09/2024 N/A 19920-XPZT SKIN LESIONS, 2 TO 4 01/09/2024 N/A Encounters Encounter Location Date Provider Diagnosis [address] [address] 03/17/2023 Rad Hendrix 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, with unspecified presence of clinical manifestation I70.203 ; Tinea unguium B35.1 ; Pain in right toe(s) M79.674 and Pain in left toe(s) M79.[address] [address] 06/16/2023 Rad Hendrix 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, with unspecified presence of clinical manifestation I70.203 ; Tinea unguium B35.1 ; Pain in right toe(s) M79.674 ; Pain in left toe(s) M79.675 and Xerosis of skin L85.3 [facility] [address] [place] [address] 10/06/2023 Rad Hendrix 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, with unspecified presence of clinical manifestation I70.203 ; Tinea unguium B35.1 ; Pain in right toe(s) M79.674 ; Pain in left toe(s) M79.675 and Xerosis of skin L85.3 [facility] [address] 01/09/2024 Rad Hendrix 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, with unspecified presence of clinical manifestation I70.203 ; Tinea unguium B35.1 ; Pain in right toe(s) M79.674 and Pain in left toe(s) M79.675 Assessments Encounter Date Diagnosis (ICD Code) Assessment Notes Treatment Notes Treatment Clinical Notes Section Notes 03/17/2023 Tinea unguium (ICD-10 - B35.1) 03/17/2023 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, with unspecified presence of clinical manifestation (ICD-10 - I70.203) 06/16/2023 Tinea unguium (ICD-10 - B35.1) 06/16/2023 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, with unspecified presence of clinical manifestation (ICD-10 - I70.203) 10/06/2023 Tinea unguium (ICD-10 - B35.1) 10/06/2023 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, with unspecified presence of clinical manifestation (ICD-10 - I70.203) 01/09/2024 Tinea unguium (ICD-10 - B35.1) 01/09/2024 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, with unspecified presence of clinical manifestation (ICD-10 - I70.203) 01/09/2024 Pain in right toe(s) (ICD-10 - M79.674) 10/06/2023 Pain in right toe(s) (ICD-10 - M79.674) 06/16/2023 Pain in right toe(s) (ICD-10 - M79.674) 03/17/2023 Pain in right toe(s) (ICD-10 - M79.674) 03/17/2023 Pain in left toe(s) (ICD-10 - M79.675) 06/16/2023 Pain in left toe(s) (ICD-10 - M79.675) 10/06/2023 Pain in left toe(s) (ICD-10 - M79.675) 01/09/2024 Pain in left toe(s) (ICD-10 - M79.675) 10/06/2023 Xerosis of skin (ICD-10 - L85.3) 06/16/2023 Xerosis of skin (ICD-10 - L85.3) Plan Of Treatment Pending Test Test Name Order Date 10251-SQWVSIS NAIL, 6 OR MORE 07/29/2011 73321-BGLXNVW NAIL, 6 OR MORE 11/01/2011 47001-TTMIZYV NAIL, 6 OR MORE 01/24/2012 91912-WAJVJGD NAIL, 6 OR MORE 04/24/2012 86627-LWSZMBS NAIL, 6 OR MORE 07/27/2012 91588-CMPGAZH NAIL, 6 OR MORE 10/19/2012 99965-XMRWRGV NAIL, 6 OR MORE 01/18/2013 64124-IYVXFDO NAIL, 6 OR MORE 05/03/2013 95741-WLSFOBX NAIL, 6 OR MORE 08/13/2013 11753-NCESIOG NAIL, 6 OR MORE 11/15/2013 54788-LWBTPMS NAIL, 6 OR MORE 02/21/2014 33656-TTNPXZB NAIL, 6 OR MORE 05/23/2014 50830-HLKDDQB NAIL, 6 OR MORE 08/22/2014 83641-SNXUCCZ NAIL, 6 OR MORE 11/14/2014 62359-NQUDUGJ NAIL, 6 OR MORE 09/16/2016 06522-VGEJFCH NAIL, 6 OR MORE 12/16/2016 46104-LOLTMEZ NAIL, 6 OR MORE 03/17/2017 48491-IDZTAKL NAIL, 6 OR MORE 06/30/2017 66266-GQPPAAT NAIL, 6 OR MORE 10/10/2017 55400-LKWIHOQ NAIL, 6 OR MORE 01/09/2018 63806-TRVVULH NAIL, 6 OR MORE 04/10/2018 41337-WXCOJRL NAIL, 6 OR MORE 07/17/2018 24959-KTZHYPI NAIL, 6 OR MORE 10/23/2018 76876-OFYDLFT NAIL, 6 OR MORE 01/22/2019 72069-BVZCVJF NAIL, 6 OR MORE 05/31/2019 53983-BEHFMXU NAIL, 6 OR MORE 10/01/2019 21889-PUKFZIZ NAIL, 6 OR MORE 01/07/2020 38233-VTBNCAH NAIL, 6 OR MORE 05/01/2020 65694-LWQTGBA NAIL, 6 OR MORE 02/20/2015 09944-QAJPFXW NAIL, 6 OR MORE 06/02/2015 66748-MJUAQIO NAIL, 6 OR MORE 09/01/2015 34225-UJVVKYB NAIL, 6 OR MORE 12/11/2015 07395-QKDDWQL NAIL, 6 OR MORE 03/11/2016 13071-CDKYBTT NAIL, 6 OR MORE 06/10/2016 24350-YUGCHYM NAIL, 6 OR MORE 07/31/2020 40000-DJKIWWX NAIL, 6 OR MORE 11/03/2020 00774-UOLSDVP NAIL, 6 OR MORE 04/20/2021 81435-NYHPBCA NAIL, 6 OR MORE 07/23/2021 29434-VNWEDFN NAIL, 6 OR MORE 10/22/2021 68462-MXVCKDS NAIL, 6 OR MORE 01/25/2022 18607-ERIAGLF NAIL, 6 OR MORE 04/29/2022 34857-OVWWPBJ NAIL, 6 OR MORE 08/30/2022 06454-JSSCPBA NAIL, 6 OR MORE 12/06/2022 82461-ILXLCGW NAIL, 6 OR MORE 03/17/2023 33347-KVRJLOV NAIL, 6 OR MORE 06/16/2023 35494-USQBZQR NAIL, 6 OR MORE 10/06/2023 93545-RBRJLJF NAIL, 6 OR MORE 01/09/2024 30590-Toyhlgiu Plate 07/29/2011 01422-Ekcvvyaz Plate 05/01/2020 36174-Ddlrveqn Plate 11/14/2014 28493-Snkanzky Plate 11/15/2013 19871-Sdycarwt Plate 08/13/2013 73345-Mljnfvam Plate 01/18/2013 50740-MQAT SKIN LESIONS, 2 TO 4 01/09/20 24 94544-XRMU SKIN LESIONS, 2 TO 4 10/06/19 67349-FTZF SKIN LESIONS, 2 TO 4 06/16/19 24 42135-YDQF SKIN LESIONS, 2 TO 4 03/17/19 24 39714-RMTJ SKIN LESIONS, 2 TO 4 12/07/19 23 28898-HLBI SKIN LESIONS, 2 TO 4 08/31/19 23 16616-TLXC SKIN LESIONS, 2 TO 4 04/30/19 23 43585-OVLQ SKIN LESIONS, 2 TO 4 01/26/20 22 12997- Ganglion Cyst Injection/Aspiratio n 09/16/2016- Ganglion Cyst Injection/Aspiratio n 04/10/2018 Next Appt Details Provider Name:Rad Hendrix , 04/09/2024 10:00:00 AM, [address] [place], [address], Insurance Providers Payer Name Payer Address Payer Phone Subscriber Number Group Number Insured Name Patient Relationship to Insured Coverage Start Date Coverage End Date Medicare [employer] [address] [facility] [place] [address] [id number] Radha Moise Self - patient is the insured Med [facility] [address] [place] [address] [phone] [id number] Radha Moise Self - patient is the insured Medical (General) History Medical History History ICD Code depression headaches/migraines high blood pressure measles chicken pox chronic sinusitis thyroid disorder cholesterol Surgical History Surgery Date(Month/Year) tonsillectomy cataract surgery Hospitalization History Reason Date(Month/Year) [facility] [place] 10/2022 Patient had a fall and went to [facility]. 0 09/13/2011
--- OUTSIDE RECORDS SUMMARY | 2024-01-17 01:30 | XMS_ITS | Patient Health Record ---
Author Organization Senthil Thomas III, MD Address [address] [place] [address] Care Team Providers Care Cable Splicer Assistant Name Role Phone Senthil Thomas Primary Care Provider [phone] Allergies Allergen (clinical drug ingredient) Drug/Non Drug Allergy documented on EMR Reaction Allergy Type Onset Date Status morphine Morphine anaphylaxis Drug Allergy Activ e fentanyl Fentanyl anaphylaxis Drug Allergy Activ e lidocaine Lidocaine Unknown Drug Allergy Active Results Component Value Reference Range Notes XR cervical spine 4V Reviewed date:05/12/2023 08:49:38 PM Interpretation: Performing Lab: Notes/Report: [address] [address] XRay Report Signed Patient: Radha Moise MR#: [id number] : 1940 Acct:[id number] Age/Sex: 82 / F ADM Date: 04/19/23 Loc: HO.XRAY Attending Dr: Senthil Thomas MD Ordering Physician: Senthil Thomas MD Date of Service: 04/19/23 Procedure(s): XR cervical spine 4V Accession Number(s): [id number] cc: Senthil Thomas MD EXAMINATION: XR CERVICAL SPINE CLINICAL INFORMATION: Neck pain COMPARISON: None available. TECHNIQUE: 5 views of the cervical spine FINDINGS: Normal alignment and cervical lordosis with mild multilevel degenerative disc disease and moderate facet arthropathy. No fracture or prevertebral soft tissue swelling. No significant neural foraminal encroachment on the oblique views. XR/XR cervical spine 4V IMPRESSION: Mild multilevel degenerative disc disease and moderate facet arthropathy. Normal alignment. Osteopenia. Dictated By: Vincent Vickers MD Signed By: <Electronically signed by Vincent Vickers MD in OV> 04/19/23 1459 DD/ 1210 TD/TT: Director Of Training: [facility] [address] [address] XRay Report Signed Patient: Candice Moise MR#: [id number] : 1940 Acct:[id number] Age/Sex: 82 / F ADM Date: 04/19/23 Loc: HO.XRAY Attending Dr: Senthil Thomas MD Ordering Physician: Senthil Thomas MD Date of Service: 04/19/23 Procedure(s): XR cer vical spine 4V Accession Number(s): [id number] cc: Senthil Thomas MD EXAMINATION: XR CERVICAL SPINE CLINICAL INFORMATION: Neck pain COMPARISON: None available. TECHNIQUE: 5 views of the cervi rach spine FINDINGS: Normal alignment and cervical lordosis with mild multilevel degenerative disc di sease and moderate facet arthropathy. No fracture or prevertebral soft tissue swelling. No significant neural foraminal encroachment on the oblique views. X R/XR cervical spine 4V IMPRESSION: Mild multilevel degenerative disc disease and moderate facet arthropathy. Normal alignment. Osteopenia. Dictated By: Vincent Vickers MD Signed By: <Electronically signed by Vincent Vickers MD in OV> 04/19/23 1459 DD/ 1210 TD/TT: Core Stacker ist: SYLVESTER Lipid Panel Reviewed date:08/28/2023 09:12:28 AM Interpretation: Performing Lab:[facility], [address] [place] [phone] Notes/Report: Triglycerides 116 <150 mg/dL Desirable Triglyceride: less than 150 mg/dL Borderline High Triglyceride 150-199 mg/dL High Triglyceride: 200-499 mg/dL Very High Triglyceride: greater than or equal to 5OO mg/dL Cholesterol 163 <200 mg/dL Desirable Cholesterol: less than 200 mg/dL Borderline High Cholesterol: 200-239 mg/dL High Cholesterol: greater than 239 mg/dL LDL Cholesterol Calculated 89 <100 mg/dL Desirable LDL: less than 100 mg/dL Near Optimal/Above Optimal LDL: 110-129 mg/dL Borderline High LDL: 130-159 mg/dL High LDL: 160-189 mg/dL Very High LDL: greater than or equal to 190 mg/dL HDL Cholesterol 51 >40 mg/dL Desirable HDL: greater than 40 mg/dL Note: This HDL assay may give artificially low results in patients with liver disease. Free T4 (Free Thyroxine) Reviewed date:08/28/2023 09:12:28 AM Interpretation: Performing Lab:[address] [phone] Notes/Report: Free T4 (Free Thyroxine) 0.94 0.71-1.85 ng/dL URINE DIP STICK Reviewed date:09/25/2023 02:59:29 PM Interpretation: Performing Lab: Notes/Report: SG 1.010 1.005 - 1.025 pH 6.0 5.0 - 9.0 STEFFI Negative Negative - NIT Negative Negative - PRO 15 Negative - Trace GLU Negative Negative - KET Negative Negative - UBG 0.2 0.1 - 1.8 NKECHI Negative 0.2 - 1.3 BLD 5-10 Negative - Menstrating No Amylase Reviewed date:12/27/2023 09:11:46 AM Interpretation: Performing Lab:[facility], [address] [place] [phone] Notes/Report: Amylase 87 28-100 U/L Lipase Reviewed date:12/27/2023 09:11:46 AM Interpretation: Performing Lab:[address] [address] Notes/Report: Lipase 40 8-78 U/L Lipid Panel (Not yet reviewe d by provider) Interpretation: Performing Lab:[address] [address] Notes/Report: Triglycerides 120 <150 mg/dL Desirable Triglyceride: [...] t yet reviewed by provider) Interpretation: Performing Lab:[facility], [address] [place] [phone] Notes/Report: Free T4 (Free Thyroxine) 1.39 0.71-1.85 ng/dL Complete Blood Count Auto Di ff Reviewed date:04/13/2023 10:09:13 AM Interpretation: Performing Lab:[facility], [address] [place] [phone] Notes/Report: White Blood Count 6.0 4.8-10.8 X10*3/uL Red Blood Count 4.21 4.20-5.50 X10*6/uL Hemoglobin 14.0 12.0-16.0 g/dl Hematocrit 42.4 37.0-47.0 % Mean Corpuscular Volume 100.7 80.0-98.0 fL Mean Corpuscular Hemoglobin 33.3 27.0-33.0 pg Mean Corpuscular HGB Conc 33.0 31.0-35.0 g/dl Red Cell Distribution Width 12.2 11.0-16.0 % Platelet Count 229 160-400 X10*3/uL Mean Platelet Volume 11.1 9.4-12.3 fL Neutrophils Percent Auto 52.5 45-73 % Imm Gran Pct Auto 0.2 0.0-0.4 % Lymphocytes Percent Auto 36.0 20-40 % Monocytes Percent Auto 8.2 2-11 % Eosinophils Percent Auto 2.4 0-4 % Basophils Percent Auto 0.7 0-2 % NRBC Pct Auto 0.0 0.0-0.2 /100WBC Neutrophils Absolute Auto 3.1 2.0-8. 3 x10*3/uL Imm Gran Abs Auto 0.01 0.00-0.03 X10*3/uL Lymphocytes Absolute Auto 2.1 1.2-4. 9 X10*3/uL Monocytes Absolute Auto 0.5 0.1-1.2 X10*3/uL Eosinophils Absolute Auto 0.1 0.0-0. 4 X10*3/uL Basophils Absolute Auto 0.0 0.0-0.2 X10*3/uL NRBC Abs Auto 0.000 0.0-0.012 X10*3/uL Comprehensive [place]. Panel Fa st Reviewed date:04/13/2023 10:09:13 AM Interpretation: Performing Lab:[facility], [address] [place] [phone] Notes/Report: Sodium 140 135-145 mmol/L Potassium 4.6 3.3-5.1 mmol/L Chloride 105 96-108 mmol/L Carbon Dioxide 31 22-29 mmol/L Anion Gap 9 12-20 Blood Urea Nitrogen 15 9-16 mg/dL Creatinine 0.80 0.5-1.4 mg/dL Estimated Glomerular Filt Rate > 60 NOTE: For -[place] individuals, multiply the result by 1.210. Chronic Kidney Disease: Estimated GFR < 60 mL/min/1.73m2 Severe Kidney Disease: Estimated GFR < 15 mL/min/1.73m2 Glucose Fasting 96 60-99 mg/dL Calcium 9.7 8.4-10.2 mg/dL Bilirubin Total 0.5 0.0-1.0 mg/dL Aspartate Amino Transferase 16 5-31 U/L Alanine Aminotransferase 14 0-31 U/L Total Protein 6.5 6.5-8.0 g/dL Albumin Level 4.0 3.5-5.0 g/dL Alkaline Phosphatase 67 39-117 U/L Lipid Panel Reviewed date:04/13/2023 10:09:13 AM Interpretation: Performing Lab:[facility], [address] [place] [phone] Notes/Report: Triglycerides 120 <150 mg/dL Desirable Triglyceride: less than 150 mg/dL Borderline High Triglyceride 150-199 mg/dL High Triglyceride: 200-499 mg/dL Very High Triglyceride: greater than or equal to 5OO mg/dL Cholesterol 176 <200 mg/dL Desirable Cholesterol: less than 200 mg/dL Borderline High Cholesterol: 200-239 mg/dL High Cholesterol: greater than 239 mg/dL LDL Cholesterol Calculated 100 <100 mg/dL Desirable LDL: less than 100 mg/dL Near Optimal/Above Optimal LDL: 110-129 mg/dL Borderline High LDL: 130-159 mg/dL High LDL: 160-189 mg/dL Very High LDL: greater than or equal to 190 mg/dL HDL Cholesterol 52 >40 mg/dL Desirable HDL: greater than 40 mg/dL Note: This HDL assay may give artificially low results in patients with liver disease. Free T4 (Free Thyroxine) Reviewed date:04/13/2023 10:09:13 AM Interpretation: Performing Lab:[facility], [address] [place] [phone] Notes/Report: Free T4 (Free Thyroxine) 0.99 0.71-1.85 ng/dL Thyroid Stimulating Hormone Reviewed date:04/13/2023 10:09:13 AM Interpretation: Performing Lab:[facility], [address] [place] [phone] Notes/Report: Thyroid Stimulating Hormone 1.12 0.32-4.0 uIU/mL TSH 3rd Generation ([facility]) US abdomen complete Reviewed date:05/12/2023 08:49:38 PM Interpretation: Performing Lab: Notes/Report: [facility] [place] [address] Ultrasound Report Signed Patient: Radha Moise MR#: [id number] : 1940 Acct:[id number] Age/Sex: 82 / F ADM Date: 05/02/23 Loc: HO.HMGCX Attending Dr: Senthil Thomas MD Ordering Physician: Senthil Thomas MD Date of Service: 05/02/23 Procedure(s): US abdomen complete Accession Number(s): [id number] cc: Senthil Thomas MD EXAMINATION: US ABDOMEN COMPLETE CLINICAL INFORMATION: Abdominal pain. COMPARISON: Ultrasound abdomen complete 07/01/2020 and 12/23/2015. CT abdomen and pelvis 12/27/2015. TECHNIQUE: Real-time imaging of the abdominal viscera. Limited visualization due to bowel gas. FINDINGS: PANCREAS: Limited visualization. ABDOMINAL AORTA: Limited visualization. Imaged portions are nonaneurysmal. INFERIOR VENA CAVA: Visualized portions are normal. LIVER: Increased hepatic parenchymal heterogeneity and echogenicity could be associated with hepatocellular disease/hepatic steatosis and substantially limits visualization. Correlation with liver function tests and clinical exam recommended to determine further management. GALLBLADDER: Large amount of sludge in the gallbladder. COMMON BILE DUCT: Normal in caliber measuring 0.4 cm in diameter. RIGHT KIDNEY: No hydronephrosis. No renal calculi. Limited visualization. The kidney measures 10.2 cm in maximum dimension. LEFT KIDNEY: No hydronephrosis. No renal calculi. Limited visualization. A 0.6 cm upper pole cyst. There is no indication for additional imaging at this time. The kidney measures 9.4 cm in maximum dimension. SPLEEN: Normal. The spleen measures 8.0 cm in maximum dimension. FREE FLUID: None. US/US abdomen complete IMPRESSION: 1. Increased hepatic parenchymal heterogeneity and echogenicity could be associated with hepatocellular disease/hepatic steatosis and substantially limits visualization. Correlation with liver function tests and clinical exam recommended to determine further management. 2. Large amount of sludge in the gallbladder. Dictated By: Starr Holloway MD Signed By: <Electronically signed by Starr Holloway MD in OV> 05/03/23 0720 DD/ 0858 TD/TT: Director Of Training: [facility] [address] [place] [address] [place] [address] Ultrasound Report Signed Patient: Candice Moise MR#: [id number] : 1940 Acct:[id number] Age/Sex: 82 / F ADM Date: 05/02/23 Loc: HO.HMGCX Attending Dr: Senthil Thomas MD Ordering Physician: Senthil Thomas MD Date of Service: 05/02/23 Procedure(s): US abd omen complete Accession Number(s): [id number] cc: Senthil Thomas MD EXAMINATION: US ABDOMEN COMPLETE CLINICAL INFORMATION: Abdominal pain. COMPARISON: Ultrasound abdomen complete 07/01/2020 and 12/23/2015. CT abdomen and pelvis 12/27/2015. TECHNIQUE: Real-time imaging of the abdominal viscera. Limited visualization due to bowel gas. FINDINGS: PANCREAS: Limited visualization. ABDOMINAL AORTA: Bermudez ited visualization. Imaged portions are nonaneurysmal. INFERIOR VENA CAVA: Visualized portions are normal. LIVER: Increased hep atic parenchymal heterogeneity and echogenicity could be associated with hepatocellular disease/hepatic steatosis and substantially limits visualization. Correlation with liver function tests and clinical e xam recommended to determine further management. GALLBLADDER: Large a mount of sludge in the gallbladder. COMMON BILE DUCT: No rmal in caliber measuring 0.4 cm in diameter. RIGHT KIDNEY: No hydronephrosis. No renal calculi. Limited visualization. The k idney measures 10.2 cm in maximum dimension. LEFT KIDNEY: No hydronephrosis. No renal calculi. Limited visualization. A 0.6 cm upper pole cyst. There is no indication for additional imaging a t this time. The kidney measures 9.4 cm in maximum dimension. SPLEEN: Normal. The spleen measures 8.0 cm in maximum dimension. FREE FLUID: None. U S/US abdomen complete IMPRESSION: 1. Increased hepatic parenchymal heterogeneity and echogenicity could be associated with hepatocellular disease/hepatic steatosis and substantially limits visualization. Correlation with liver function tests and clinical e xam recommended to determine further management. 2. Large amount of s ludge in the gallbladder. Dictated By: Starr Holloway MD Signed By: <Electronically signed by Starr Holloway MD in OV> 05/03/23 0720 DD/ 0858 TD/TT: Director Of Training: Complete Blood Count Auto Di ff Reviewed date:06/11/2023 12:59:38 PM Interpretation: Performing Lab:[facility], [address] [place] [phone] Notes/Report: White Blood Count 5.6 4.8-10.8 X10*3/uL Red Blood Count 4.00 4.20-5.50 X10*6/uL Hemoglobin 13.4 12.0-16.0 g/dl Hematocrit 40.7 37.0-47.0 % Mean Corpuscular Volume 101.8 80.0-98.0 fL Mean Corpuscular Hemoglobin 33.5 27.0-33.0 pg Mean Corpuscular HGB Conc 32.9 31.0-35.0 g/dl Red Cell Distribution Width 12.5 11.0-16.0 % Platelet Count 238 160-400 X10*3/uL Mean Platelet Volume 10.8 9.4-12.3 fL Neutrophils Percent Auto 57.1 45-73 % Imm Gran Pct Auto 0.2 0.0-0.4 % Lymphocytes Percent Auto 32.8 20-40 % Monocytes Percent Auto 6.8 2-11 % Eosinophils Percent Auto 2.7 0-4 % Basophils Percent Auto 0.4 0-2 % NRBC Pct Auto 0.0 0.0-0.2 /100WBC Neutrophils Absolute Auto 3.2 2.0-8. 3 x10*3/uL Imm Gran Abs Auto 0.01 0.00-0.03 X10*3/uL Lymphocytes Absolute Auto 1.8 1.2-4. 9 X10*3/uL Monocytes Absolute Auto 0.4 0.1-1.2 X10*3/uL Eosinophils Absolute Auto 0.2 0.0-0. 4 X10*3/uL Basophils Absolute Auto 0.0 0.0-0.2 X10*3/uL NRBC Abs Auto 0.000 0.0-0.012 X10*3/uL Comprehensive [place]. Panel Fa st Reviewed date:06/11/2023 12:59:38 PM Interpretation: Performing Lab:[facility], [address] [place] [phone] Notes/Report: Sodium 142 135-145 mmol/L Potassium 4.3 3.3-5.1 mmol/L Chloride 106 96-108 mmol/L Carbon Dioxide 27 22-29 mmol/L Anion Gap 13 12-20 Blood Urea Nitrogen 12 9-16 mg/dL Creatinine 0.83 0.5-1.4 mg/dL Estimated Glomerular Filt Rate > 60 NOTE: For -[place] individuals, multiply the result by 1.210. Chronic Kidney Disease: Estimated GFR < 60 mL/min/1.73m2 Severe Kidney Disease: Estimated GFR < 15 mL/min/1.73m2 Glucose Fasting 101 60-99 mg/dL A fasting glucose from 100-125 mg/dl is considered impaired (pre-diabetes). Calcium 9.7 8.4-10.2 mg/dL Bilirubin Total 0.4 0.0-1.0 mg/dL Aspartate Amino Transferase 14 5-31 U/L Alanine Aminotransferase 12 0-31 U/L Total Protein 6.7 6.5-8.0 g/dL Albumin Level 4.0 3.5-5.0 g/dL Alkaline Phosphatase 66 39-117 U/L Lipid Panel Reviewed date:06/11/2023 12:59:38 PM Interpretation: Performing Lab:[facility], [address] [place] [phone] Notes/Report: Triglycerides 126 <150 mg/dL Desirable Triglyceride: less than 150 mg/dL Borderline High Triglyceride 150-199 mg/dL High Triglyceride: 200-499 mg/dL Very High Triglyceride: greater than or equal to 5OO mg/dL Cholesterol 173 <200 mg/dL Desirable Cholesterol: less than 200 mg/dL Borderline High Cholesterol: 200-239 mg/dL High Cholesterol: greater than 239 mg/dL LDL Cholesterol Calculated 93 <100 mg/dL Desirable LDL: less than 100 mg/dL Near Optimal/Above Optimal LDL: 110-129 mg/dL Borderline High LDL: 130-159 mg/dL High LDL: 160-189 mg/dL Very High LDL: greater than or equal to 190 mg/dL HDL Cholesterol 55 >40 mg/dL Desirable HDL: greater than 40 mg/dL Note: This HDL assay may give artificially low results in patients with liver disease. Free T4 (Free Thyroxine) Reviewed date:06/11/2023 12:59:38 PM Interpretation: Performing Lab:[facility], [address] [place] [phone] Notes/Report: Free T4 (Free Thyroxine) 1.02 0.71-1.85 ng/dL Thyroid Stimulating Hormone Reviewed date:06/11/2023 12:59:38 PM Interpretation: Performing Lab:[facility], [address] [place] [phone] Notes/Report: Thyroid Stimulating Hormone 0.68 0.32-4.0 uIU/mL TSH 3rd Generation ([facility]) [place] hepatobiliary w pharm Reviewed date:08/28/2023 09:12:28 AM Interpretation: Performing Lab: Notes/Report: [address] [address] Nuclear Medicine Report Signed Patient: Radha Moise MR#: [id number] : 1940 Acct:[id number] Age/Sex: 83 / F ADM Date: 08/01/23 Loc: ADIS Attending Dr: Senthil Thomas MD Ordering Physician: Senthil Thomas MD Date of Service: 08/01/23 Procedure(s): [place] hepatobiliary w pharm Accession Number(s): [id number] cc: Senthil Thomas MD EXAMINATION: BILIARY TRACT IMAGING STUDY WITH CCK CLINICAL INFORMATION: Right upper quadrant pain.. COMPARISON: No previous biliary scan is available for comparison. Abdominal ultrasound dated 05/02/[address] scan of the abdomen and pelvis dated 12/27/2015 are available for comparison.. TECHNIQUE: Serial gamma scintillation camera images were obtained over the abdomen for a total observation period of 99 minutes following the intravenous administration of 5 mCi Tc-99m Mebrofenin. FINDINGS: There is good concentration of activity in the liver by 5 minutes post injection. Biliary activity is visualized by 15 minutes. The gallbladder is well visualized by 40 minutes. Small bowel is well visualized by 30 minutes. At 30 minutes post radiopharmaceutical injection, a 30-minute infusion of 1.5 micrograms Sincalide was then begun and an additional 40 minutes of images were obtained. There is good emptying of the gallbladder. By the end of the study there is good clearance of activity from the liver and visualization of diffuse small bowel activity. The calculated gallbladder ejection fraction is 74% (normal gallbladder ejection fraction is greater than 35%). [place] hepatobiliary w pharm IMPRESSION: Visualization of the gallbladder is evidence of a patent cystic duct and strong evidence against the diagnosis of acute cholecystitis. The common bile duct is patent. Gallbladder emptying and ejection fraction are normal. Liver function appears normal. Dictated By: Vinnie Soares MD Signed By: <Electronically signed by Vinnie Soares MD in OV> 08/02/23 0943 DD/ 1015 TD/TT: Director Of Training: [address] [address] Nuclear Medicine Report Signed Patient: Candice Moise MR#: [id number] : 1940 Acct:[id number] Age/Sex: 83 / F ADM Date: 08/01/23 Loc: ADIS Attending Dr: Senthil Thomas MD Ordering Physician: Senthil Thomas MD Date of Service: 08/01/23 Procedure(s): [place] hepatobiliary w pharm Accession Number(s): [id number] cc: Senthil Thomas MD EXAMINATION: BILIARY TRACT IMAGIN G STUDY WITH CCK CLINICAL INFORMATION: Right upper quadrant pain.. COMPARISON: No previous biliary scan is available for comparison. Abdominal ultrasound dated 05/02/[address] scan of the abdomen and pelvis dated 12/27/2015 are avail able for comparison.. TECHNIQUE: Serial gamma scintillation camera images were obtained over the abdomen for a total observat ion period of 99 minutes following the intravenous administration of 5 mCi Tc-99m Mebrofenin. FINDINGS: There is good concentration of activity in the liver by 5 minutes post injection. Biliary activity is visualized by 15 minutes. The gallbladder is well visualized by 40 minutes. Small bowel is well visualized by 30 minutes. At 30 minutes post radiopharmaceutical injection, a 30-minute infusion of 1.5 micrograms Sincalide was then begun and an additional 40 minutes of images were obtai alfonso. There is good emptying of the gallbladder. By the end of the study there is good clearance of activity from the liver and visualization of diffuse small bowel activity. The calculated gallbladder ejection fraction is 74% (normal gallbladder ejection fraction is greater than 35%). N [place] hepatobiliary w pharm IMPRESSION: Visualization of the gallbladder is evidence of a patent cystic duct and strong evidence against the diagnosis of acute cholecystitis. The common bile duct is patent. Gallbladder emptying and ejection fraction are normal. Liver function appears normal. Dictated By: Vinnie Soares MD Signed By: <Electronically signed by Vinnie Soares MD in OV> 08/02/23 0943 DD/ 1015 TD/TT: Core Stacker ist: RR Complete Blood Count Auto Di ff Reviewed date:08/28/2023 09:12:28 AM Interpretation: Performing Lab:[facility], [address] [place] [phone] Notes/Report: White Blood Count 5.8 4.8-10.8 X10*3/uL Red Blood Count 4.06 4.20-5.50 X10*6/uL Hemoglobin 13.6 12.0-16.0 g/dl Hematocrit 40.8 37.0-47.0 % Mean Corpuscular Volume 100.5 80.0-98.0 fL Mean Corpuscular Hemoglobin 33.5 27.0-33.0 pg Mean Corpuscular HGB Conc 33.3 31.0-35.0 g/dl Red Cell Distribution Width 12.3 11.0-16.0 % Platelet Count 232 160-400 X10*3/uL Mean Platelet Volume 11.2 9.4-12.3 fL Neutrophils Percent Auto 56.3 45-73 % Imm Gran Pct Auto 0.5 0.0-0.4 % Lymphocytes Percent Auto 33.8 20-40 % Monocytes Percent Auto 6.7 2-11 % Eosinophils Percent Auto 2.2 0-4 % Basophils Percent Auto 0.5 0-2 % NRBC Pct Auto 0.0 0.0-0.2 /100WBC Neutrophils Absolute Auto 3.3 2.0-8. 3 x10*3/uL Imm Gran Abs Auto 0.03 0.00-0.03 X10*3/uL Lymphocytes Absolute Auto 2.0 1.2-4. 9 X10*3/uL Monocytes Absolute Auto 0.4 0.1-1.2 X10*3/uL Eosinophils Absolute Auto 0.1 0.0-0. 4 X10*3/uL Basophils Absolute Auto 0.0 0.0-0.2 X10*3/uL NRBC Abs Auto 0.000 0.0-0.012 X10*3/uL Erythrocyte Sedimentation Ra te Reviewed date:08/28/2023 09:12:28 AM Interpretation: Performing Lab:[facility], [address] [place] [phone] Notes/Report: Erythrocyte Sedimentation Rate 7 0-20 MM/HR Patients with polycythemia and many hemoglobin abnormalities may have depressed sed rates whereas patients with anemia may have elevated sed rates. Comprehensive [place]. Panel Fa st Reviewed date:08/28/2023 09:12:28 AM Interpretation: Performing Lab:[facility], [address] [place] [phone] Notes/Report: Sodium 143 135-145 mmol/L Potassium 4.1 3.3-5.1 mmol/L Chloride 108 96-108 mmol/L Carbon Dioxide 29 22-29 mmol/L Anion Gap 10 12-20 Blood Urea Nitrogen 13 9-16 mg/dL Creatinine 0.83 0.5-1.4 mg/dL Estimated Glomerular Filt Rate > 60 NOTE: For -[place] individuals, multiply the result by 1.210. Chronic Kidney Disease: Estimated GFR < 60 mL/min/1.73m2 Severe Kidney Disease: Estimated GFR < 15 mL/min/1.73m2 Glucose Fasting 101 60-99 mg/dL A fasting glucose from 100-125 mg/dl is considered impaired (pre-diabetes). Calcium 9.5 8.4-10.2 mg/dL Bilirubin Total 0.4 0.0-1.0 mg/dL Aspartate Amino Transferase 14 5-31 U/L Alanine Aminotransferase 11 0-31 U/L Total Protein 6.5 6.5-8.0 g/dL Albumin Level 4.1 3.5-5.0 g/dL Alkaline Phosphatase 65 39-117 U/L Thyroid Stimulating Hormone Reviewed date:08/28/2023 09:12:28 AM Interpretation: Performing Lab:[facility], [address] [place] [phone] Notes/Report: Thyroid Stimulating Hormone 0.64 0.32-4.0 uIU/mL TSH 3rd Generation ([facility]) CT abdomen w con Reviewed date:08/28/2023 09:12:28 AM Interpretation: Performing Lab: Notes/Report: [address] [address] [address] Scan Report Signed Patient: Radha Moise MR#: [id number] : 1940 Acct:[id number] Age/Sex: 83 / F ADM Date: 08/17/23 Loc: HO.CT Attending Dr: Senthil Thomas MD Ordering Physician: Senthil Thomas MD Date of Service: 08/17/23 Procedure(s): CT abdomen w IV con Accession Number(s): [id number] cc: Senthil Thomas MD EXAMINATION: CT ABDOMEN WITH CONTRAST CLINICAL INFORMATION: Pain of right upper quadrant. COMPARISON: Abdomen ultrasound from 05/02/2023. Abdomen CT from 12/27/2015. TECHNIQUE: Contiguous axial thin section helical images of the abdomen were performed following the administration of oral contrast and 85 mL of Omnipaque 350 intravenous contrast. The data set was reformatted in the coronal and sagittal planes and reviewed on an independent workstation. This CT examination was performed using dose optimization techniques as appropriate, variously including the following: *Automated exposure control *Adjustment of mA and/or kV according to patient size (this includes techniques or standardized protocols for targeted exams where dose is matched to indication/reason for exam; i.e. extremities or head) *Use of iterative reconstruction technique DLP: 290 mGy-cm FINDINGS: Lung bases are unremarkable. Liver has normal size and contour. Gallbladder appears to contain mild amount of sludge. No visible stones, wall thickening or pericholecystic fluid. No dilated bile ducts. Pancreatic parenchyma has normal attenuation. Pancreatic duct measures up to 3-4 mm diameter. No pancreatic mass, edema or peripancreatic fluid. Spleen is normal. The medial limb of the left adrenal gland has transverse thickness of 0.8 cm, possibly due to presence of a very small adenoma, unchanged compared to 12/27/2015. No adrenal imaging follow-up recommended. Kidneys enhance symmetrically. No nephrolithiasis, hydronephrosis or perinephric edema. There are a few small simple cysts of the left kidney for which no renal imaging follow-up is recommended. The ureters are unremarkable. There is atherosclerotic calcification of the abdominal aorta without aneurysm. No pathologic sized lymph nodes in the abdomen. Stomach is unremarkable. There are diverticula of the second and third portions of the duodenum. The appendix is normal. Multiple diverticula of the partially visualized colon without evidence of diverticulitis. No abdominal free fluid or free air. Bones are diffusely osteopenic. There is levoscoliosis of the lower thoracic and lumbar spine. The disc degenerative changes of the visualized spine are worst at L1-L2 and L5-S1. CT/CT abdomen w IV con IMPRESSION: * No specific source of pain is identified. * There appears to be sludge of the gallbladder without any discrete stones. No evidence of cholecystitis. * Colonic diverticulosis without diverticulitis. Dictated By: Alberto Nails MD Signed By: <Electronically signed by Alberto Nails MD in OV> 08/17/23 1054 DD/ 0900 TD/TT: Director Of Training: [address] [address] [address] Scan Report Signed Patient: Candice Moise MR#: [id number] : 1940 Acct:[id number] Age/Sex: 83 / F ADM Date: 08/17/23 Loc: HO.CT Attending Dr: Senthil Thomas MD Ordering Physician: Senthil Thomas MD Date of Service: 08/17/23 Procedure(s): CT abd omen w IV con Accession Number(s): [id number] cc: Senthil Thomas MD EXAMINATION: CT ABDOMEN WITH CONTRAST CLINICAL INFORMATION: Pain of right upper quadrant. COMPARISON: Abdomen ultrasound f rom 05/02/2023. Abdomen CT from 12/27/2015. TECHNIQUE: Contiguous axial thi n section helical images of the abdomen were performed following the administration of oral contrast and 85 mL of Omnipaque 350 intrav enous contrast. The data set was reformatted in the coronal and sagittal planes and reviewed on an independent workstation. This CT examination was performed using dose optimization techniques as appropriate, various ly including the following: *Automated exposure control *Adjustment of mA an d/or kV according to patient size (this includes techniques or standardized protocols for targeted exams where dose is matched to indication/reason for exam; i.e. extremities or head) *Use of iterative reconstruction technique DLP: 290 mGy-cm FINDINGS: Lung bases are unremarkable. Liver has normal siz e and contour. Gallbladder appears to contain mild amount of sludge. No visible stones, wall thicken ing or pericholecystic fluid. No dilated bile ducts. Pancreatic parenchym a has normal attenuation. Pancreatic duct measures up to 3-4 mm diamete r. No pancreatic mass, edema or peripancreatic fluid. Spleen is normal. The medial limb of t he left adrenal gland has transverse thickness of 0.8 cm, possibly due to presence of a very small adenoma, unchanged compared to 12/27/19 16. No adrenal imaging follow-up recommended. Kidneys enhance symmetrically. No nephrolithiasis, hydronephrosis or perinephric edema. T here are a few small simple cysts of the left kidney for which no renal imaging follow-up is recommended. The ureters are unremarkable. There is atheroscler otic calcification of the abdominal aorta without aneurysm. No pathologic sized lymph nodes in the abdomen. Stomach is unremarka ble. There are diverticula of the second and third portions of the duod enum. The appendix is normal. Multiple diverticula of the partially visualized colon without evidence of diverticulitis. No abdominal free fl uid or free air. Bones are diffusely osteopenic. There is levoscoliosis of the lower thoracic and lumbar spine. The disc degenerative changes of the visualized spine are worst at L1-L2 and L5-S1. C T/CT abdomen w IV con IMPRESSION: * No specific source of pain is identified. * There appears to b e sludge of the gallbladder without any discrete stones. No evidence of cholecystitis. * Colonic diverticul osis without diverticulitis. Dictated By: Alberto Nails MD Signed By: <Electronically signed by Alberto Nails MD in OV> 08/17/23 1054 DD/ 0900 TD/TT: Core Stacker ist: PD MM tomosynthesis screening B I Reviewed date:09/24/2023 07:05:01 AM Interpretation: Performing Lab: Notes/Report: [facility] [address] [place] [address] Mammography Report Signed Patient: Radha Moise MR#: [id number] : 1940 Acct:[id number] Age/Sex: 83 / F ADM Date: 09/06/23 Loc: HO.MAMMO Attending Dr: Senthil Thomas MD Ordering Physician: Senthil Thomas MD Results: 1Negativ e Date of Service: 09/06/23 Follow Up: 1 Year From [facility] Mammogram Procedure(s): MM tomosynthesis screening BI Accession Number(s): [id number] cc: Senthil Thomas MD EXAMINATION: MM SCREENING DIGITAL BREAST TOMOSYNTHESIS, BILATERAL CLINICAL INFORMATION: Screening. Asymptomatic. COMPARISON: Mammography: This study is compared with prior exams dating back to 2019. TECHNIQUE: Digital breast tomosynthesis is performed in both the craniocaudal and mediolateral oblique views along with computer-aided detection (CAD). Synthesized 2D images are generated from the tomosynthesis. FINDINGS: There are scattered areas of fibroglandular density (ACR BI-RADS breast composition Category b). There are no significant masses, abnormal calcifications, or other abnormalities. MM/MM tomosynthesis screening BI IMPRESSION: No mammographic evidence of malignancy. ASSESSMENT: BI-RADS BI-RADS 1 - Negative RECOMMENDATION: Routine annual mammography screening. 1 year F/U This examination should not preclude the clinical evaluation of a suspicious palpable abnormality. This patient's information was entered into a reminder system with a target due date for their next mammogram. Dictated By: Arianna Rose MD Signed By: <Electronically signed by Arianna Rose MD in OV> 09/13/23 1257 DD/ 1038 TD/TT: Director Of Training: [place] [facility] [address] [place] [address] Mammography Report Signed Patient: Candice Moise MR#: [id number] : 1940 Acct:[id number] Age/Sex: 83 / F ADM Date: 09/06/23 Loc: HO.MAMMO Attending Dr: Senthil Thomas MD Ordering Physician: Senthil Thomas MD Results: 1Negativ e Date of Service: Follow Up: 1 Year From Orig inal Mammogram Procedure(s): MM tomosynthesis screening BI Accession Number(s): [id number] cc: Senthil Thomas MD EXAMINATION: MM SCREENING DIGITAL BREAST TOMOSYNTHESIS, BILATERAL CLINICAL INFORMATION: Screening. Asymptomatic. COMPARISON: Mammography: This st udy is compared with prior exams dating back to 2019. TECHNIQUE: Digital breast tomosynthesis is performed in both the craniocaudal and mediolateral oblique views along with computer-aided detection (CAD). Synthesized 2D image s are generated from the tomosynthesis. FINDINGS: There are scattered areas of fibroglandular density (ACR BI-RADS breast composition Category b). There are no signifi cant masses, abnormal calcifications, or other abnormalities. M M/MM tomosynthesis screening BI IMPRESSION: No mammographic evid ence of malignancy. ASSESSMENT: BI-RADS BI-RADS 1 - Negative RECOMMENDATION: Routine annual mammography screening. 1 year F/U This examination yumi uld not preclude the clinical evaluation of a suspicious palpable abnormality. This patient's information was entered into a reminder system with a target due date for their next mammogram. Dictated By: Arianna Rose MD Signed By: <Electronically signed by Arianna Rose MD in OV> 09/13/23 1257 DD/ 1038 TD/TT: Director Of Training: MAMMOGRAM DIGITAL BILATERAL SCREEN Reviewed date:09/25/2023 02:26:26 PM Interpretation:undefined Performing Lab: Notes/Report: undefined Complete Blood Count Auto Di ff Reviewed date:12/27/2023 09:11:46 AM Interpretation: Performing Lab:[facility], [address] [place] [phone] Notes/Report: White Blood Count 6.6 4.8-10.8 X10*3/uL Red Blood Count 4.10 4.20-5.50 X10*6/uL Hemoglobin 13.8 12.0-16.0 g/dl Hematocrit 39.1 37.0-47.0 % Mean Corpuscular Volume 95.4 80.0-98.0 fL Mean Corpuscular Hemoglobin 33.7 27.0-33.0 pg Mean Corpuscular HGB Conc 35.3 31.0-35.0 g/dl Red Cell Distribution Width 11.8 11.0-16.0 % Platelet Count 296 160-400 X10*3/uL Mean Platelet Volume 10.7 9.4-12.3 fL Neutrophils Percent Auto 53.0 45-73 % Imm Gran Pct Auto 0.5 0.0-0.4 % Lymphocytes Percent Auto 35.4 20-40 % Monocytes Percent Auto 8.3 2-11 % Eosinophils Percent Auto 2.3 0-4 % Basophils Percent Auto 0.5 0-2 % NRBC Pct Auto 0.0 0.0-0.2 /100WBC Neutrophils Absolute Auto 3.5 2.0-8. 3 x10*3/uL Imm Gran Abs Auto 0.03 0.00-0.03 X10*3/uL Lymphocytes Absolute Auto 2.4 1.2-4. 9 X10*3/uL Monocytes Absolute Auto 0.6 0.1-1.2 X10*3/uL Eosinophils Absolute Auto 0.2 0.0-0. 4 X10*3/uL Basophils Absolute Auto 0.0 0.0-0.2 X10*3/uL NRBC Abs Auto 0.000 0.0-0.012 X10*3/uL Comprehensive Met. Panel Reviewed date:12/27/2023 09:11:46 AM Interpretation: Performing Lab:[facility], [address] [place] [phone] Notes/Report: Sodium 130 135-145 mmol/L Potassium 4.3 3.3-5.1 mmol/L Chloride 91 96-108 mmol/L Carbon Dioxide 33 22-29 mmol/L Anion Gap 10 12-20 Blood Urea Nitrogen 12 9-16 mg/dL Creatinine 0.86 0.5-1.4 mg/dL Estimated Glomerular Filt Rate > 60 Chronic Kidney Disease: Estimated GFR < 60 mL/min/1.73m2 Severe Kidney Disease: Estimated GFR < 15 mL/min/1.73m2 Glucose Random 97 60-115 mg/dL Calcium 9.3 8.4-10.2 mg/dL Bilirubin Total 0.5 0.0-1.0 mg/dL Aspartate Amino Transferase 25 5-31 U/L Alanine Aminotransferase 25 0-31 U/L Total Protein 6.6 6.5-8.0 g/dL Albumin Level 4.1 3.5-5.0 g/dL Alkaline Phosphatase 76 39-117 U/L Gamma Glutamyl Transpeptidas e Reviewed date:12/27/2023 09:11:46 AM Interpretation: Performing Lab:[address] [phone] Notes/Report: Gamma Glutamyl Transpeptidase 50 7-33 U/L Lactate Dehydrogenase Reviewed date:12/27/2023 09:11:46 AM Interpretation: Performing Lab:[address] [phone] Notes/Report: Lactate Dehydrogenase 182 122-220 U/L Complete Blood Count Auto Di ff (Not yet reviewed by provider) Interpretation: Performing Lab:[address] [address] Notes/Report: White Blood Count 5.7 4.8-10.8 X10*3/uL Red Blood Count 3.98 4.20-5.50 X10*6/uL Hemoglobin 13.3 12.0-16.0 g/dl Hematocrit 37.1 37.0-47.0 % Mean Corpuscular Volume 93.2 80.0-98.0 fL Mean Corpuscular Hemoglobin 33.4 27.0-33.0 pg Mean Corpuscular HGB Conc 35.8 31.0-35.0 g/dl Red Cell Distribution Width 11.7 11.0-16.0 % Platelet Count 278 160-400 X10*3/uL Mean Platelet Volume 10.4 9.4-12.3 fL Neutrophils Percent Auto 60.8 45-73 % Imm Gran Pct Auto 0.5 0.0-0.4 % Lymphocytes Percent Auto 29.1 20-40 % Monocytes Percent Auto 7.8 2-11 % Eosinophils Percent Auto 1.4 0-4 % Basophils Percent Auto 0.4 0-2 % NRBC Pct Auto 0.0 0.0-0.2 /100WBC Neutrophils Absolute Auto 3.5 2.0-8. 3 x10*3/uL Imm Gran Abs Auto 0.03 0.00-0.03 X10*3/uL Lymphocytes Absolute Auto 1.7 1.2-4. 9 X10*3/uL Monocytes Absolute Auto 0.4 0.1-1.2 X10*3/uL Eosinophils Absolute Auto 0.1 0.0-0. 4 X10*3/uL Basophils Absolute Auto 0.0 0.0-0.2 X10*3/uL NRBC Abs Auto 0.000 0.0-0.012 X10*3/uL Erythrocyte Sedimentation Ra te (Not yet reviewed by provider) Interpretation: Performing Lab:[address] [phone] Notes/Report: Erythrocyte Sedimentation Rate 9 0-20 MM/HR Patients with polycythemia and many hemoglobin abnormalities may have depressed sed rates whereas patients with anemia may have elevated sed rates. Urinalysis and Microscopic ( Not yet reviewed by provider) Interpretation: Performing Lab:[address] [phone] Notes/Report: Color Urine Yellow Appearance Urine Cloudy PH 6.5 5.0-9.0 Glucose Urine UA Negative Negative mg/dL Urine Blood Trace Negative Specific [place] - Urine 1.010 1.005-1.025 Urine Protein Negative Neg-Trace mg/dL Urine Ketones Negative Negative mg/dL Nitrite Urine Negative Negative Leukocyte Esterase Urine Moderate (2+) Negative RBC Urine 0-2 0-2 /HPF WBC Urine 0-5 0-5 /HPF Squamous Epithelial Cell Urine >20 0-2 /HPF Bacteria Urine 1+ None Seen Hyaline Casts Urine 0-2 0-2 /LPF Comprehensive [place]. Panel Fa st (Not yet reviewed by provider) Interpretation: Performing Lab:[facility], [address] [place] [phone] Notes/Report: Sodium 131 135-145 mmol/L Potassium 3.4 3.3-5.1 mmol/L Chloride 91 96-108 mmol/L Carbon Dioxide 32 22-29 mmol/L Anion Gap 11 12-20 Blood Urea Nitrogen 11 9-16 mg/dL Creatinine 0.75 0.5-1.4 mg/dL Estimated Glomerular Filt Rate > 60 Chronic Kidney Disease: Estimated GFR < 60 mL/min/1.73m2 Severe Kidney Disease: Estimated GFR < 15 mL/min/1.73m2 Glucose Fasting 107 60-99 mg/dL A fasting glucose from 100-125 mg/dl is considered impaired (pre-diabetes). Calcium 10.3 8.4-10.2 mg/dL Bilirubin Total 0.7 0.0-1.0 mg/dL Aspartate Amino Transferase 22 5-31 U/L Alanine Aminotransferase 21 0-31 U/L Total Protein 6.7 6.5-8.0 g/dL Albumin Level 4.2 3.5-5.0 g/dL Alkaline Phosphatase 67 39-117 U/L Thyroid Stimulating Hormone (Not yet reviewed by provider) Interpretation: Performing Lab:[facility], [address] [place] [phone] Notes/Report: Thyroid Stimulating Hormone 0.71 0.32-4.0 uIU/mL TSH 3rd Generation ([facility]) Immunofixation Pnl, Serum (N ot yet reviewed by provider) Interpretation: Performing Lab:[facility], [address] [place] [phone] Notes/Report: IgG 055 614-4921 mg/dL IgA 98 70-320 mg/dL IgM 67 50-300 mg/dL THIS TEST WAS PERFORMED AT: [facility] [address] [place] [phone] KIMBERLY RIVERA MD Immunofixation Interpretation SEE NOTE Normal pattern. No monoclonal proteins detected. SRIDHAR Reflex Titer and Pattern (Not yet reviewed by provider) Interpretation: Performing Lab:[address] [phone] Notes/Report: Anti Nuclear Antibody Screen POSITIVE NEGATIVE SRIDHAR IFA is a first line screen for detecting the presence of up to approximately 150 autoantibodies in various autoimmune diseases. A positive SRIDHAR IFA result is suggestive of autoimmune disease and reflexes to titer and pattern. Further laboratory testing may be considered if clinically indicated. For additional information, please refer to [email or web address] [email or web address] (This link is being provided for informational/ educational purposes only.) Anti Nuclear Antibody Titer 1:80 A low level SRIDHAR titer may be present in pre-clinical autoimmune diseases and normal individuals. Reference Range <1:40 Negative 1:40-1:80 Low Antibody Level >1:80 Elevated Antibody Level Anti Nuclear Antibody Pattern Nuclear, Speckled Speckled pattern is associated with mixed connective tissue disease (MCTD), systemic lupus erythematosus (SLE), Sjogren's syndrome, dermatomyositis, and systemic sclerosis/polymyosit is overlap. AC-2,4,5,29: Speckled International Consensus on SRIDHAR Patterns (https://doi.org/10. 1515/phao-7119-9005) THIS TEST WAS PERFORMED AT: [facility] [address] [address] KIMBERLY RIVERA MD SRIDHAR Titer 2 TNP SRIDHAR Pattern 2 TNP SRIDHAR Titer 3 TNP SRIDHAR Pattern 3 TNP Rheumatoid Factor (Not yet r eviewed by provider) Interpretation: Performing Lab:[facility], [address] [place] [phone] Notes/Report: Rheumatoid Factor < 13.0 <15.0 IU/mL Reason For Referral Reason RUQ abdominal pain negative HIDA scan negative Ultrasound Diagnosis 1 Right upper quadrant pain (R10.11) Referral Organization Senthil Thomas III, MD Referring Provider First Name Senthil Referring Provider Last Name William Referring Provider Speciality Internal M edicine Referred Provider Senthil Barcenas Referred Provider Specialty Gastroentero logy General Notes Rimma Elizabeth CM 08/17/2023 09:49:23 AM EDT > waiting til pt has ct scan abd with contrast at before refering back to see Dr Barcenas for eval pt has follow up appt here with Dr Thomas on 08/28/2023, Rimma Elizabeth CMA 10/03/2023 01:47:45 PM EDT > Pt did not want to go back to Dr Barcenas at this time Referral Priority Routine Reason ? 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 12/27 10:20:28 AM > ref/demo/progress notes/labs/x rays faxed to Dr Cerna office pt given appt information Referral Priority Routine Referral Appointment Date 01/09/2024 Medications Medication SIG (Take, Route, Frequency, Duration) Notes Start Date End Date Status Metoprolol Tartrate 50 MG TAKE THREE TAB LETS BY MOUTH TWICE A DAY Active Citalopram Hydrobromide 20 MG 1 tablet Orally Once a day 09/15/2021 Active Fluticasone Furoate 27.5 MCG/SPRAY 1 spray in each nostril Nasally Once a day 09/15/2021 Active Excedrin Migraine [...] EVERY MORNING ON AN EMPTY STOMACH Active Ondansetron HCl 8 MG 1 tablet as needed Orally every 8 hours 12/19/2023 Active Ipratropium [place] 0.03 % 2 sprays in e ach nostril Nasally Twice a day 01/13/2022 Active Omeprazole 20 MG TAKE ONE CAPSULE BY MOUTH EVERY DAY Active PARoxetine HCl 30 MG TAKE 1 TABLET BY MO UTH ONCE A DAY IN THE MORNING Active Simvastatin 20 MG TAKE ONE TABLET BY M OUTH EVERY EVENING Active Chlorthalidone 25 MG 1 tablet in the mor danielle with food Orally once a day 11/30/2023 Active Losartan Potassium 100 MG 1 tablet Orall y Once a day 01/18/2023 Active Immunizations Vaccine Route Administration Date Status Comme nts Influenza, quad IM Intramuscular 12/26/2017 Administered Influenza no Preserv 3 and > IM Intramuscular 12/11/2020 Administered Influenza, quad IM Intramuscular 12/07/2022 Administered PPV 23 Unknown 11/11/2009 Administered PCV13 Unknown 12/29/2020 Administered COVID 19 Moderna Unknown 04/14/2020 Administered COVID 19 Moderna Unknown 03/17/2020 Administered COVID Moderna Bivalent Unknown 11/11/2021 Administered Td (adult) Unknown 09/13/2011 Administered Social History Tobacco Use: Social History Observation Description Date Details (start date - stop date) Former Smoker NA - NA Sex Assigned At : Social History Observation Description Sex Assigned At Female Tobacco Use/Smoking Question Answer Notes Patient is a former smoker How long has it been since you last smoked? > 10 years Additional Findings: Tobacco Non-User Ex-cigaret te smoker Alcohol Screen Question Answer Notes Did you have a drink containing alcohol in the p ast year? No Points 0 Interpretation Negative Problems Problem Type SNOMED Code ICD Code Onset Dates Problem Status W/U Status Risk Notes Problem 8330563 Former smoker (Z87.891) Active confirmed She seems highly motivated not to smoke. We have discussed a plan to prevent relapse in time, stress or illness. Problem 092319785 Overweight (E66.3) Active confirmed She remains overweight. She is trying to lose weight and consume a healthy diet. We reviewed her weight loss strategy today. Problem 46390664 Hyponatremia (E87.1) Active confirmed Her serum sodium level has previously been normal. She is not taking a diuretic. On December 18, 2023 her sodium level was 1:30 and on December 29, 2023 was 131. This will be followed and reevaluated. If it persists she will need an evaluation for the syndrome of inappropriate ADH. Problem 29635073 Irritable bowel syndrome without diarrhea (K58.9) Active confirmed She has keiko ed with IBS for a long time and is very familiar with its symptoms and manifestations. She clearly says the right upper quadrant pain is a different discomfort in unrelated to IBS. Problem Right upper quadrant pain (497801334) Right upper quadrant pain (R10.11) Active confirmed I have requested a surgical consultation to see if we can pinpoint the cause of the right upper quadrant abdominal pain and to evaluate the possibility of acalculous cholecystitis. Problem 356949994 Acquired hypothyroidism (E03.9) Active confirmed She continues on Levothyroxine. Her TSH values have been normal. Problem 28330000 Hiatal hernia (K44.9) Active confirmed There has been no change in the right upper quadrant ssymptoms. Problem 693741250 Gastroesophageal reflux disease without esophagitis (K21.9) Active confirmed She continues on her alkalinization therapyy. Problem 59723734 Hyperlipidemia, unspecified hyperlipidemia type (E78.5) Active confirmed Her lipids have been stable and no change in her regimen was made today. Problem 147935802 History of malignant melanoma (Z85.820) Active confirmed No neoplastic lesions were seen on the skin on today's examination. There was no sign of recurrent melanoma. 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 She was more anxious today and depressed. No change in her regimen as needed. Problem 311141067 Migraine without aura and without status migrainosus, not intractable (G43.009) Active confirmed She has had no change in the pattern of her headaches. They are relieved fairly well with sumatriptan and which was continued and will be refilled. Problem 41518689 Primary hypertension (I10) Active confirmed Her blood pressure at home this week has been about 120/70. She is tolerating the diuretic well. No change in her regimen was made. I recommended weight loss and sodium restriction. Problem 71603877 Sjogren's syndrome, with unspecified organ involvement (M35.00) Active confirmed Within the last year she has been to a dentist and an motion graphics designer. Both of these practitioners commented on how dry her membranes were. He is concerned that she may have Sjogren's syndrome. She has been researching this on the Internet. She has requested a referral to rheumatology for further evaluation. I have agreed and sent her to rheumatology at [facility]. Vital Signs Heart Rate 58 /min 12/28/2023 Temperature 97.0 degrees Fahrenheit 12/28/2023 Blood pressure diastolic 75 mm Hg 12/28/2023 Height 63 in 12/28/2023 Blood pressure systolic 145 mm Hg 12/28/2023 Weight 162 lbs 12/28/2023 BMI 28.69 kg/m2 12/28/2023 Encounters Encounter Location Date Provider Diagnosis Senthil Thomas III, MD [address] [place] [address] [place] [phone] 01/18/2023 Senthil Thomas Hyperlipidemia, unspecified hyperlipidemia type E78.5 ; Acquired hypothyroidism E03.9 ; Overweight E66.3 ; Gastroesophageal reflux disease without esophagitis K21.9 ; Former smoker Z87.891 ; History of malignant melanoma Z85.820 and Reactive depression F32.9 Senthil Thomas III, MD [address] [place] [address] [place] [phone] 02/09/2023 Senthil Thomas Hyperlipidemia, unspecified hyperlipidemia type E78.5 ; Acquired hypothyroidism E03.9 ; Primary hypertension I10 ; Reactive depression F32.9 ; Gastroesophageal reflux disease without esophagitis K21.9 ; Irritable bowel syndrome without diarrhea K58.9 ; Migraine without aura and without status migrainosus, not intractable G43.009 ; Former smoker Z87.891 ; Hiatal hernia K44.9 ; History of malignant melanoma Z85.820 and Overweight E66.3 Senthil Thomas III, MD [address] [place] [address] [place] [phone] 04/19/2023 Senthil Thomas Hyperlipidemia, unspecified hyperlipidemia type E78.5 ; Lower abdominal pain R10.30 ; Reactive depression F32.9 ; Gastroesophageal reflux disease without esophagitis K21.9 ; Irritable bowel syndrome without diarrhea K58.9 ; Acquired hypothyroidism E03.9 ; Migraine without aura and without status migrainosus, not intractable G43.009 ; Former smoker Z87.891 ; Hiatal hernia K44.9 ; History of malignant melanoma Z85.820 ; Primary hypertension I10 and Overweight E66.3 Senthil Thomas III, MD [address] [place] [address] [place] [id number] 05/12/2023 Senthil Thomas Hyperlipidemia, unspecified hyperlipidemia type E78.5 ; Overweight E66.3 ; Acquired hypothyroidism E03.9 ; Reactive depression F32.9 ; Gastroesophageal reflux disease without esophagitis K21.9 ; Migraine without aura and without status migrainosus, not intractable G43.009 ; Former smoker Z87.891 and History of malignant melanoma Z85.820 Senthil Thomas III, MD [address] [place] [address] [place] [id number] 06/16/2023 Senthil Thomas Hyperlipidemia, unspecified hyperlipidemia type E78.5 ; Acquired hypothyroidism E03.9 ; Overweight E66.3 ; Reactive depression F32.9 ; Gastroesophageal reflux disease without esophagitis K21.9 ; Irritable bowel syndrome without diarrhea K58.9 ; Former smoker Z87.891 ; History of malignant melanoma Z85.820 and Primary hypertension I10 Senthil Thomas III, MD [address] [place] [address] [place] [id number] 07/24/2023 Senthil Thomas Hyperlipidemia, unspecified hyperlipidemia type E78.5 ; Right upper quadrant pain R10.11 ; Former smoker Z87.891 ; Gastroesophageal reflux disease without esophagitis K21.9 ; History of malignant melanoma Z85.820 ; Acquired hypothyroidism E03.9 and Overweight E66.3 Senthil Thomas III, MD [address] [place] [address] [place] [id number] 08/14/2023 Senthil Thomas Hyperlipidemia, unspecified hyperlipidemia type E78.5 ; Gastroesophageal reflux disease without esophagitis K21.9 ; Acquired hypothyroidism E03.9 ; Hiatal hernia K44.9 ; Right upper quadrant pain R10.11 ; Former smoker Z87.891 and Overweight E66.3 Senthil Thomas III, MD [address] [place] [address] [place] [id number] 08/28/2023 Senthil Thomas Hyperlipidemia, unspecified hyperlipidemia type E78.5 ; Right upper quadrant pain R10.11 ; Former smoker Z87.891 ; Migraine without aura and without status migrainosus, not intractable G43.009 ; Primary hypertension I10 ; Acquired hypothyroidism E03.9 ; Irritable bowel syndrome without diarrhea K58.9 ; Reactive depression F32.9 and Gastroesophageal reflux disease without esophagitis K21.9 Senthil Thomas III, MD [address] [place] [address] [place] [id number] 09/25/2023 Senthil Thomas Hyperlipidemia, unspecified hyperlipidemia type E78.5 ; Reactive depression F32.9 ; Gastroesophageal reflux disease without esophagitis K21.9 ; Irritable bowel syndrome without diarrhea K58.9 ; Acquired hypothyroidism E03.9 ; Primary hypertension I10 ; Overweight E66.3 ; Migraine without aura and without status migrainosus, not intractable G43.009 ; Hiatal hernia K44.9 ; Right upper quadrant pain R10.11 and Former smoker Z87.891 Senthil Thomas III, MD [address] [place] [address] [place] [id number] 11/30/2023 Senthil Thomas Right upper quadrant pain R10.11 ; Reactive depression F32.9 ; Hyperlipidemia, unspecified hyperlipidemia type E78.5 ; Gastroesophageal reflux disease without esophagitis K21.9 ; Irritable bowel syndrome without diarrhea K58.9 ; Acquired hypothyroidism E03.9 ; History of malignant melanoma Z85.820 ; Hiatal hernia K44.9 ; Former smoker Z87.891 ; Migraine without aura and without status migrainosus, not intractable G43.009 ; Overweight E66.3 and Primary hypertension I10 Senthil Thomas III, MD [address] [place] [address] [place] [id number] 12/19/2023 Senthil Thomas Acquired hypothyroid ism E03.9 ; Gastroesophageal reflux disease without esophagitis K21.9 ; Former smoker Z87.891 ; Acquired hypothyroidism E03.9 ; Hyperlipidemia, unspecified hyperlipidemia type E78.5 ; Hyperlipidemia, unspecified hyperlipidemia type E78.5 ; History of malignant melanoma Z85.820 ; Nausea & vomiting R11.2 ; Overweight E66.3 ; Overweight E66.3 and Primary hypertension I10 Senthil Thomas III, MD [address] [place] [address] [place] [id number] 12/28/2023 Senthil Thomas Acquired hypothyroid ism E03.9 [...] E78.5 ; Overweight E66.3 and Hyponatremia E87.1 Senthil Thomas III, MD [address] [place] [address] [place] [phone] 05/02/2023 Senthil Thomas III, MD [address] [place] [address] [place] [id number] 09/07/2023 Senthil Thomas III, MD [address] [place] [address] [address] [place], [place] [phone] 12/25/2023 Senthil Thomas Right upper quadrant pain R10.11 and Disease of gallbladder, unspecified K82.9 Senthil Thomas III, MD [address] [place] [address] [address] [place] [id number] 12/27/2023 Senthil Thomas Assessments Encounter Date Diagnosis (ICD Code) Assessment Notes T reatment Notes Treatment Clinical Notes 01/18/2023 Acquired hypothyroidism (ICD-10 - E03.9) She appears to be euthyroid. Thyroid function tests have been ordered. No change in her regimen was needed today. 01/18/2023 Hyperlipidemia, unspecified hyperlipidemia type (ICD-10 - E78.5) Her lipids aree stable and well controlled. I recommended a diet low animal fat, with aggressive sodium restriction and weight loss. 02/09/2023 Acquired hypothyroidism (ICD-10 - E03.9) She appears to be euthyroid. Thyroid function tests have been ordered. No change in her regimen was needed today. 02/09/2023 Hyperlipidemia, unspecified hyperlipidemia type (ICD-10 - E78.5) Her current lipid profile shows her values to be in the normal range. No change in her regimen was necesssary. 04/19/2023 Lower abdominal pain (ICD-10 - R10.30) Abdominal examination was unremarkable. Her blood work showed no significant abnormalities. An ultrasound of the abdomen has been ordered to further assess her complaints. 04/19/2023 Hyperlipidemia, unspecified hyperlipidemia type (ICD-10 - E78.5) Her current lipid profile shows her values to be in the normal range. No change in her regimen was necesssary. 05/12/2023 Overweight (ICD-10 - E66.3) Her weight is stable. Her body mass index is 28. We discussed her weight loss strategy at length today. We made a plan to lose weight at a rate of one half of a pound per week. 05/12/2023 Hyperlipidemia, unspecified hyperlipidemia type (ICD-10 - E78.5) Her current lipid profile shows her values to be in the normal range. No change in her regimen was necesssary. 06/16/2023 Acquired hypothyroidism (ICD-10 - E03.9) She continues to be euthyroid on the current dose of levothyroxine. No change in her regimen was made. 06/16/2023 Hyperlipidemia, unspecified hyperlipidemia type (ICD-10 - E78.5) Her current lipid profile shows her values to be in the normal range. No change in her regimen was necesssary. 07/24/2023 Right upper quadrant pain (ICD-10 - R10.11) She is known to have sludge in the gallbladder. HIDA scan was ordered. If it is abnormal she will need a surgical consultation. 07/24/2023 Hyperlipidemia, unspecified hyperlipidemia type (ICD-10 - E78.5) Her current lipid profile shows her values to be in the normal range. No change in her regimen was necesssary. 08/14/2023 Gastroesophageal reflux disease without esophagitis (ICD-10 - K21.9) She continues on her alkalinization therapyy. 08/14/2023 Hyperlipidemia, unspecified hyperlipidemia type (ICD-10 - E78.5) Her current lipid profile shows her values to be in the normal range. No change in her regimen was necesssary. 08/28/2023 Right upper quadrant pain (ICD-10 - R10.11) Fortunately no significant abnormality in the abdomen has yet been identified. The discomfort may be functional. The CT scan her recent blood work are within normal limits. She will be followed closely for developments. 08/28/2023 Hyperlipidemia, unspecified hyperlipidemia type (ICD-10 - E78.5) Her current lipid profile shows her values to be in the normal range. No change in her regimen was necesssary. 09/25/2023 Hyperlipidemia, unspecified hyperlipidemia type (ICD-10 - E78.5) Her current lipid profile shows her values to be in the normal range. No change in her regimen was necesssary. 09/25/2023 Reactive depression (ICD-10 - F32.9) Her depression is mild and episodic. She was more anxious today and depressed. No change in her regimen as needed. 11/30/2023 Right upper quadrant pain (ICD-10 - R10.11) No significant abnormality in the right upper quadrant has yet been discovered. Observation will continue. The CT scan scan were normal. 11/30/2023 Reactive depression (ICD-10 - F32.9) Her depression is mild and episodic. She was more anxious today and depressed. No change in her regimen as needed. 12/19/2023 Acquired hypothyroidism (ICD-10 - E03.9) She continues on Levothyroxine. Her TSH values have been normal. 12/19/2023 Gastroesophageal reflux disease without esophagitis (ICD-10 - K21.9) She continues on her alkalinization therapyy. 12/28/2023 Right upper quadrant pain (ICD-10 - R10.11) I have requested a surgical consultation to see if we can pinpoint the cause of the right upper quadrant abdominal pain and to evaluate the possibility of acalculous cholecystitis. 12/28/2023 Acquired hypothyroidism (ICD-10 - E03.9) She continues on Levothyroxine. Her TSH values have been normal. 12/25/2023 Right upper quadrant pain (ICD-10 - R10.11) 01/18/2023 Overweight (ICD-10 - E66.3) Her body mass index today is 27. We discussed diet and nutrition. We discussed weight loss strategies and sodium restriction. We made a plan to lose weight. 02/09/2023 Primary hypertension (ICD-10 - I10) Her blood pressure continues to be controlled in the normal range at 130/86. No change in her regimen was made. I recommended weight loss and sodium restriction. 04/19/2023 Reactive depression (ICD-10 - F32.9) Her depression is mild and episodic. She was more anxious today and depressed. No change in her regimen as needed. 05/12/2023 Acquired hypothyroidism (ICD-10 - E03.9) She is compliant with her medication. Her thyroid function test are in the normal range. 06/16/2023 Overweight (ICD-10 - E66.3) She remains overweight. She is trying to lose weight and consume a healthy diet. We reviewed her weight loss strategy today. 07/24/2023 Former smoker (ICD-1 0 - Z87.891) She seems highly motivated not to smoke. We have discussed a plan to prevent relapse in time, stress or illness. 08/14/2023 Acquired hypothyroidism (ICD-10 - E03.9) She continues on Levothyroxine. Her TSH values have been normal. 08/28/2023 Former smoker (ICD-1 0 - Z87.891) She seems highly motivated not to smoke. We have discussed a plan to prevent relapse in time, stress or illness. 09/25/2023 Gastroesophageal reflux disease without esophagitis (ICD-10 - K21.9) She continues on her alkalinization therapyy. 11/30/2023 Hyperlipidemia, unspecified hyperlipidemia type (ICD-10 - E78.5) Her current lipid profile shows her values to be in the normal range. No change in her regimen was necesssary. 12/19/2023 Former smoker (ICD-1 0 - Z87.891) She seems highly motivated not to smoke. We have discussed a plan to prevent relapse in time, stress or illness. 12/19/2023 Acquired hypothyroidism (ICD-10 - E03.9) 12/28/2023 Irritable bowel syndrome without diarrhea (ICD-10 - K58.9) She has lived with IBS for a long time and is very familiar with its symptoms and manifestations. She clearly says the right upper quadrant pain is a different discomfort in unrelated to IBS. 12/25/2023 Disease of gallbladder, unspecified (ICD-10 - K82.9) 01/18/2023 Gastroesophageal reflux disease without esophagitis (ICD-10 - K21.9) Her esophageal reflux is well controlled on current medications. No change in her regimen was needed. 02/09/2023 Reactive depression (ICD-10 - F32.9) Her depression is mild and episodic. She was more anxious today and depressed. No change in her regimen as needed. 04/19/2023 Gastroesophageal reflux disease without esophagitis (ICD-10 - K21.9) Her esophageal reflux is well controlled on current medications. No change in her regimen was needed. 05/12/2023 Reactive depression (ICD-10 - F32.9) Her depression is mild and episodic. She was more anxious today and depressed. No change in her regimen as needed. 06/16/2023 Reactive depression (ICD-10 - F32.9) Her depression is mild and episodic. She was more anxious today and depressed. No change in her regimen as needed. 07/24/2023 Gastroesophageal reflux disease without esophagitis (ICD-10 - K21.9) Her esophageal reflux is well controlled on current medications. No change in her regimen was needed. 08/14/2023 Hiatal hernia (ICD-1 0 - K44.9) There has been no change in the right upper quadrant ssymptoms. 08/28/2023 Migraine without aur a and without status migrainosus, not intractable (ICD-10 - G43.009) She has had no change in the pattern of her headaches. They are relieved fairly well with sumatriptan and which was continued and will be refilled. 09/25/2023 Irritable bowel syndrome without diarrhea (ICD-10 - K58.9) He is able to conduct all his activities of daily living with the migratory abdominal extremity discomforts. She did not require treatment. 11/30/2023 Gastroesophageal reflux disease without esophagitis (ICD-10 - K21.9) She continues on her alkalinization therapyy. 12/28/2023 Disease of gallbladder, unspecified (ICD-10 - K82.9) She has what was called a slight amount of sludge in the gallbladder. A HIDA scan was normal. We are going to have a surgeon evaluate her for acalculous cholecystitis. 01/18/2023 Former smoker (ICD-1 0 - Z87.891) She seems highly motivated not to smoke. We have discussed a plan to prevent relapse in time, stress or illness. 02/09/2023 Gastroesophageal reflux disease without esophagitis (ICD-10 - K21.9) Her esophageal reflux is well controlled on current medications. No change in her regimen was needed. 04/19/2023 Irritable bowel syndrome without diarrhea (ICD-10 - K58.9) He is able to conduct all his activities of daily living with the migratory abdominal extremity discomforts. She did not require treatment. 05/12/2023 Gastroesophageal reflux disease without esophagitis (ICD-10 - K21.9) Her esophageal reflux is well controlled on current medications. No change in her regimen was needed. 06/16/2023 Gastroesophageal reflux disease without esophagitis (ICD-10 - K21.9) Her esophageal reflux is well controlled on current medications. No change in her regimen was needed. 07/24/2023 History of malignant melanoma (ICD-10 - Z85.820) No neoplastic lesions were seen on the skin on today's examination. There was no sign of recurrent melanoma. 08/14/2023 Right upper quadrant pain (ICD-10 - R10.11) CT scan of the abdomen is pending. 08/28/2023 Primary hypertension (ICD-10 - I10) Her blood pressure continues to be controlled in the normal range at 140/80. No change in her regimen was made. I recommended weight loss and sodium restriction. 09/25/2023 Acquired hypothyroidism (ICD-10 - E03.9) She continues on Levothyroxine. Her TSH values have been normal. 11/30/2023 Irritable bowel syndrome without diarrhea (ICD-10 - K58.9) He is able to conduct all his activities of daily living with the migratory abdominal extremity discomforts. She did not require treatment. 12/19/2023 Hyperlipidemia, unspecified hyperlipidemia type (ICD-10 - E78.5) Her current lipid profile shows her values to be in the normal range. No change in her regimen was necesssary. 12/19/2023 Hyperlipidemia, unspecified hyperlipidemia type (ICD-10 - E78.5) Her current lipid profile shows her values to be in the normal range. No change in her regimen was necesssary. 12/28/2023 Sjogren's syndrome, with unspecified organ involvement (ICD-10 - M35.00) Within the last year she has been to a dentist and an motion graphics designer. Both of these practitioners commented on how dry her membranes were. He is concerned that she may have Sjogren's syndrome. She has been researching this on the Internet. She has requested a referral to rheumatology for further evaluation. I have agreed and sent her to rheumatology at [facility]. 01/18/2023 History of malignant melanoma (ICD-10 - Z85.820) No neoplastic lesions were seen on the skin on today's examination. There was no sign of recurrent melanoma. 02/09/2023 Irritable bowel syndrome without diarrhea (ICD-10 - K58.9) He is able to conduct all his activities of daily living with the migratory abdominal extremity discomforts. She did not require treatment. 04/19/2023 Acquired hypothyroidism (ICD-10 - E03.9) She appears to be euthyroid. Thyroid function tests have been ordered. No change in her regimen was needed today. 05/12/2023 Migraine without aur a and without status migrainosus, not intractable (ICD-10 - G43.009) She has had no change in the pattern of her headaches. They are relieved fairly well with sumatriptan and which was continued and will be refilled. 06/16/2023 Irritable bowel syndrome without diarrhea (ICD-10 - K58.9) He is able to conduct all his activities of daily living with the migratory abdominal extremity discomforts. She did not require treatment. 07/24/2023 Acquired hypothyroidism (ICD-10 - E03.9) She continues to be euthyroid on the current dose of levothyroxine. No change in her regimen was made. 08/14/2023 Former smoker (ICD-1 0 - Z87.891) She seems highly motivated not to smoke. We have discussed a plan to prevent relapse in time, stress or illness. 08/28/2023 Acquired hypothyroidism (ICD-10 - E03.9) She continues on Levothyroxine. Her TSH values have been normal. 09/25/2023 Primary hypertension (ICD-10 - I10) Her blood pressure continues to be controlled in the normal range at 140/80. No change in her regimen was made. I recommended weight loss and sodium restriction. 11/30/2023 Acquired hypothyroidism (ICD-10 - E03.9) She continues on Levothyroxine. Her TSH values have been normal. 12/19/2023 History of malignant melanoma (ICD-10 - Z85.820) No neoplastic lesions were seen on the skin on today's examination. There was no sign of recurrent melanoma. 12/28/2023 Gastroesophageal reflux disease without esophagitis (ICD-10 - K21.9) She continues on her alkalinization therapyy. 01/18/2023 Reactive depression (ICD-10 - F32.9) Her depression is mild and episodic. She was more anxious today and depressed. No change in her regimen as needed. 02/09/2023 Migraine without aur a and without status migrainosus, not intractable (ICD-10 - G43.009) She has had no change in the pattern of her headaches. They are relieved fairly well with sumatriptan and which was continued and will be refilled. 04/19/2023 Migraine without aur a and without status migrainosus, not intractable (ICD-10 - G43.009) She has had no change in the pattern of her headaches. They are relieved fairly well with sumatriptan and which was continued and will be refilled. 05/12/2023 Former smoker (ICD-1 0 - Z87.891) She seems highly motivated not to smoke. We have discussed a plan to prevent relapse in time, stress or illness. 06/16/2023 Former smoker (ICD-1 0 - Z87.891) She seems highly motivated not to smoke. We have discussed a plan to prevent relapse in time, stress or illness. 07/24/2023 Overweight (ICD-10 - E66.3) She remains overweight. She is trying to lose weight and consume a healthy diet. We reviewed her weight loss strategy today. 08/14/2023 Overweight (ICD-10 - E66.3) She remains overweight. She is trying to lose weight and consume a healthy diet. We reviewed her weight loss strategy today. 08/28/2023 Irritable bowel syndrome without diarrhea (ICD-10 - K58.9) He is able to conduct all his activities of daily living with the migratory abdominal extremity discomforts. She did not require treatment. 09/25/2023 Overweight (ICD-10 - E66.3) She remains overweight. She is trying to lose weight and consume a healthy diet. We reviewed her weight loss strategy today. 11/30/2023 History of malignant melanoma (ICD-10 - Z85.820) No neoplastic lesions were seen on the skin on today's examination. There was no sign of recurrent melanoma. 12/19/2023 Nausea & vomiting (ICD-10 - R11.2) 12/28/2023 Former smoker (ICD-1 0 - Z87.891) She seems highly motivated not to smoke. We have discussed a plan to prevent relapse in time, stress or illness. 02/09/2023 Former smoker (ICD-1 0 - Z87.891) She seems highly motivated not to smoke. We have discussed a plan to prevent relapse in time, stress or illness. 04/19/2023 Former smoker (ICD-1 0 - Z87.891) She seems highly motivated not to smoke. We have discussed a plan to prevent relapse in time, stress or illness. 05/12/2023 History of malignant melanoma (ICD-10 - Z85.820) No neoplastic lesions were seen on the skin on today's examination. There was no sign of recurrent melanoma. 06/16/2023 History of malignant melanoma (ICD-10 - Z85.820) No neoplastic lesions were seen on the skin on today's examination. There was no sign of recurrent melanoma. 08/28/2023 Reactive depression (ICD-10 - F32.9) Her depression is mild and episodic. She was more anxious today and depressed. No change in her regimen as needed. 09/25/2023 Migraine without aur a and without status migrainosus, not intractable (ICD-10 - G43.009) She has had no change in the pattern of her headaches. They are relieved fairly well with sumatriptan and which was continued and will be refilled. 11/30/2023 Hiatal hernia (ICD-1 0 - K44.9) There has been no change in the right upper quadrant ssymptoms. 12/28/2023 History of malignant melanoma (ICD-10 - Z85.820) No neoplastic lesions were seen on the skin on today's examination. There was no sign of recurrent melanoma. 02/09/2023 Hiatal hernia (ICD-1 0 - K44.9) She has a known hiatal hernia, which may be causing some of her symptoms. She will be observed to see if any treatment is necessary. 04/19/2023 Hiatal hernia (ICD-1 0 - K44.9) She has a known hiatal hernia, which may be causing some of her symptoms. She will be observed to see if any treatment is necessary. 06/16/2023 Primary hypertension (ICD-10 - I10) Her blood pressure continues to be controlled in the normal range at 140/80. No change in her regimen was made. I recommended weight loss and sodium restriction. 08/28/2023 Gastroesophageal reflux disease without esophagitis (ICD-10 - K21.9) She continues on her alkalinization therapyy. 09/25/2023 Hiatal hernia (ICD-1 0 - K44.9) There has been no change in the right upper quadrant ssymptoms. 11/30/2023 Former smoker (ICD-1 0 - Z87.891) She seems highly motivated not to smoke. We have discussed a plan to prevent relapse in time, stress or illness. 12/19/2023 Overweight (ICD-10 - E66.3) She remains overweight. She is trying to lose weight and consume a healthy diet. We reviewed her weight loss strategy today. 12/19/2023 Overweight (ICD-10 - E66.3) She remains overweight. She is trying to lose weight and consume a healthy diet. We reviewed her weight loss strategy today. 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 She was more anxious today and depressed. No change in her regimen as needed. 02/09/2023 History of malignant melanoma (ICD-10 - Z85.820) No neoplastic lesions were seen on the skin on today's examination. There was no sign of recurrent melanoma. 04/19/2023 History of malignant melanoma (ICD-10 - Z85.820) No neoplastic lesions were seen on the skin on today's examination. There was no sign of recurrent melanoma. 09/25/2023 Right upper quadrant pain (ICD-10 - R10.11) No significant abnormality in the right upper quadrant has yet been discovered. Observation will continue. The CT scan scan were normal. 11/30/2023 Migraine without aur a and without status migrainosus, not intractable (ICD-10 - G43.009) She has had no change in the pattern of her headaches. They are relieved fairly well with sumatriptan and which was continued and will be refilled. 12/19/2023 Primary hypertension (ICD-10 - I10) Her blood pressure at home this week has been about 120/70. She is tolerating the diuretic well. No change in her regimen was made. I recommended weight loss and sodium restriction. 12/28/2023 Hyperlipidemia, unspecified hyperlipidemia type (ICD-10 - E78.5) Her lipids have been stable and no change in her regimen was made today. 02/09/2023 Overweight (ICD-10 - E66.3) Her body mass index today is 27. We discussed diet and nutrition. We discussed weight loss strategies and sodium restriction. We made a plan to lose weight. 04/19/2023 Primary hypertension (ICD-10 - I10) Her blood pressure continues to be controlled in the normal range at 130/86. No change in her regimen was made. I recommended weight loss and sodium restriction. 09/25/2023 Former smoker (ICD-1 0 - Z87.891) She seems highly motivated not to smoke. We have discussed a plan to prevent relapse in time, stress or illness. 11/30/2023 Overweight (ICD-10 - E66.3) She remains overweight. She is trying to lose weight and consume a healthy diet. We reviewed her weight loss strategy today. 12/28/2023 Overweight (ICD-10 - E66.3) She remains overweight. She is trying to lose weight and consume a healthy diet. We reviewed her weight loss strategy today. 04/19/2023 Overweight (ICD-10 - E66.3) Her body mass index today is 29. We discussed diet and nutrition. We discussed weight loss strategies and sodium restriction. We made a plan to lose weight. 11/30/2023 Primary hypertension (ICD-10 - I10) Her blood pressure continues to be controlled in the normal range at 140/80. No change in her regimen was made. I recommended weight loss and sodium restriction. 12/28/2023 Hyponatremia (ICD-10 - E87.1) Her serum sodium level has previously been normal. She is not taking a diuretic. On December 18, 2023 her sodium level was 1:30 and on December 29, 2023 was 131. This will be followed and reevaluated. If it persists she will need an evaluation for the syndrome of inappropriate ADH. Plan Of Treatment Pending Test Test Name Order Date URINE DIP STICK 11/04/2022 PROFILE, FASTING (COMPREHENSIVE METABOLI C) 08/14/2023 PROFILE, FASTING (COMPREHENSIVE METABOLI C) 06/17/2019 PROFILE, FASTING (COMPREHENSIVE METABOLI C) 06/16/2023 PROFILE, FASTING (COMPREHENSIVE METABOLI C) 05/12/2023 PROFILE, FASTING (COMPREHENSIVE METABOLI C) 02/09/2023 PROFILE, FASTING (COMPREHENSIVE METABOLI C) 01/13/2022 PROFILE, FASTING (COMPREHENSIVE METABOLI C) 01/18/2023 PROFILE, FASTING (COMPREHENSIVE METABOLI C) 02/11/2019 PROFILE, FASTING (COMPREHENSIVE METABOLI C) 09/15/2021 PROFILE, FASTING (COMPREHENSIVE METABOLI C) 08/08/2018 PROFILE, FASTING (COMPREHENSIVE METABOLI C) 05/14/2018 PROFILE, FASTING (COMPREHENSIVE METABOLI C) 12/28/2023 PROFILE, FASTING (COMPREHENSIVE METABOLI C) 09/25/2023 PROFILE, FASTING (COMPREHENSIVE METABOLI C) 09/19/2022 PROFILE, FASTING (COMPREHENSIVE METABOLI C) 08/03/2021 PROFILE, FASTING (COMPREHENSIVE METABOLI C) 05/03/2021 PROFILE, FASTING (COMPREHENSIVE METABOLI C) 02/04/2021 PROFILE, FASTING (COMPREHENSIVE METABOLI C) 06/22/2020 CALCIUM 11/04/2022 LIPID PANEL 05/03/2021 LIPID PANEL 06/22/2020 LIPID PANEL 06/17/2019 LIPID PANEL 01/13/2022 LIPID PANEL 02/11/2019 LIPID PANEL 09/15/2021 LIPID PANEL 08/08/2018 LIPID PANEL 05/14/2018 LIPID PANEL 09/19/2022 LIPID PANEL 08/03/2021 FREE T4 (FT4) 02/04/2021 FREE T4 (FT4) 05/03/2021 FREE T4 (FT4) 05/12/2023 FREE T4 (FT4) 06/22/2020 FREE T4 (FT4) 06/17/2019 FREE T4 (FT4) 01/13/2022 FREE T4 (FT4) 09/15/2021 FREE T4 (FT4) 08/08/2018 FREE T4 (FT4) 05/14/2018 FREE T4 (FT4) 09/19/2022 TSH (THYROID STIMULATING HORMONE) 2022 TSH (THYROID STIMULATING HORMONE) 2023 TSH (THYROID STIMULATING HORMONE) 2020 TSH (THYROID STIMULATING HORMONE) 2021 TSH (THYROID STIMULATING HORMONE) 2023 TSH (THYROID STIMULATING HORMONE) 2022 TSH (THYROID STIMULATING HORMONE) 2023 TSH (THYROID STIMULATING HORMONE) 2020 TSH (THYROID STIMULATING HORMONE) 2019 TSH (THYROID STIMULATING HORMONE) 2023 TSH (THYROID STIMULATING HORMONE) 2023 TSH (THYROID STIMULATING HORMONE) 2021 TSH (THYROID STIMULATING HORMONE) 2021 TSH (THYROID STIMULATING HORMONE) 2018 TSH (THYROID STIMULATING HORMONE) 2023 TSH (THYROID STIMULATING HORMONE) 2018 RHEUMATOID FACTOR (RA, RF) 12/28/2023 CBC w DIFF 01/13/2022 CBC w DIFF 12/28/2023 CBC w DIFF 09/15/2021 CBC w DIFF 08/08/2018 CBC w DIFF 08/03/2021 CBC w DIFF 08/14/2023 CBC w DIFF 05/14/2018 CBC w DIFF 09/19/2022 CBC w DIFF 02/04/2021 CBC w DIFF 02/09/2023 CBC w DIFF 05/03/2021 CBC w DIFF 02/11/2019 CBC w DIFF 06/22/2020 CBC w DIFF 06/17/2019 CBC w DIFF 09/25/2023 SED RATE (ESR) 12/28/2023 SED RATE (ESR) 08/14/2023 SED RATE (ESR) 07/17/2020 URINALYSIS (UA) 01/26/2022 IMMUNOFIXATION PANEL, SERUM (IEP) 2023 URINE CULTURE 01/26/2022 URINE CULTURE 11/04/2022 HIDA SCAN GB WITH CCK 12/25/2023 SRIDHAR (JESSIE) 12/28/2023 VITAMIN D 25-OH TOTAL 02/11/2019 PARATHYROID HORMONE INTACT 11/04/2022 CBC WITH AUTO DIFF 06/16/2023 CBC WITH AUTO DIFF 01/18/2023 CBC WITH AUTO DIFF 05/12/2023 Complete Blood Count Auto Diff Erythrocyte Sedimentation Rate Urinalysis and Microscopic 12/29/2023 Urinalysis 12/28/2023 Comprehensive [place]. Panel Fast Lipid Panel 09/25/2023 Lipid Panel 06/16/2023 Lipid Panel 02/04/2021 Lipid Panel 02/09/2023 Lipid Panel 01/18/2023 Lipid Panel 05/12/2023 Lipid Panel 12/28/2023 Free T4 (Free Thyroxine) 01/18/2023 Free T4 (Free Thyroxine) 12/28/2023 Free T4 (Free Thyroxine) 09/25/2023 Free T4 (Free Thyroxine) 06/16/2023 Free T4 (Free Thyroxine) 02/09/2023 Thyroid Stimulating Hormone 12/29/2023 Immunofixation Pnl, Serum 12/29/2023 SRIDHAR Reflex Titer and Pattern 12/29/2023 Rheumatoid Factor 12/29/2023 Next Appt Details Provider Name:Senthil Thomas, 01/26/2024 09:00:00 AM, [address] [place] [address] EBEN WALTERS, [facility], [address], Provider Name:Senthil Thomas, 09/27/2024 02:30:00 PM, [address] [place] [address] EBEN WALTERS, [place], [address], Insurance Providers Payer Name Payer Address Payer Phone Subscriber Number Group Number Insured Name Patient Relationship to Insured Coverage Start Date Coverage End Date MEDICARE NGS [address] [place] [phone] [id number] Radha Moise Self - patient is the insured [facility] [address] [place], [place] [id number] [phone] [id number] aRdha Moise Self - patient is the insured Medical (General) History Medical History History ICD Code Anxiety F41.9 Depression, unspecified depression type F32.9 Hypercholesterolemia E78.00 Female cystocele N81.10 History of gastroesophageal reflux (GERD ) Z87.19 Irritable bowel syndrome with constipati on and diarrhea K58.2 Hypothyroidism, unspecified E03.9 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
--- OUTSIDE RECORDS SUMMARY | 2024-01-17 01:30 | XMS_ITS | Patient Health Record ---
Author Organization [facility] Address [address] [place] [address] Care Team Providers Care Video Manager Name Role Phone Senthil Thomas MD Primary Care Provider Unavailab Senthil Negrete Unavailable [phone] ALLERGIES No Known Allergies REASON FOR REFERRAL No Information MEDICATIONS Medication SIG (Take, Route, Frequency, Duration) Notes Start Date End Date Status Probiotic 1 2 Orally QD Active Calcium 600 + D 600-200 MG-UNIT 2 Orally QD Active LORazepam 0.5 MG 1 tablet as needed Orally Twice a day Active Levothyroxine Sodium 88 MCG 1 tablet Ora lly Once a day Active Omeprazole 20 MG 1 capsule 30 minutes before morning meal Orally Once a day for 30 day(s) Active Dicyclomine HCl 10 MG TAKE 1 TO 2 CAPSUL ES BY MOUTH EVERY 6 HOURS OR BEFORE EACH MEAL FOR ABDOMNIAL CRAMP/DISCOMFORT OR DIARRHEA FOR 30 DAYS for 30 Active Benefiber - as directed Orally Active Simvastatin 20 MG 1 tablet in the even ing Orally Once a day Active Citalopram Hydrobromide 40 MG 0.5 tablet Orally Once a day Active Metoprolol Succinate ER 25 MG 1 tablet Orally Once a day Active IMMUNIZATIONS Vaccine Route Administration Date Status Comme nts Flu vaccine no Preserv 3 and > Unknown 11/18/2014 Admin istered Influenza Unknown 11/24/2020 Administered SOCIAL HISTORY Sex Assigned At : Social History Observation Description Sex Assigned At Unknown PROBLEMS Problem Type ICD Code Onset Dates Problem Status W/U Status Risk SNOMED Code Notes Problem Irritable bowel syndrome with diarrhea (K58.0) Active confirmed 534173994 Problem Gastroesophageal reflux disease, esophagitis presence not specified (K21.9) Active confirmed 254175917 Problem Diverticulitis of large intestine without perforation or abscess without bleeding (K57.32) Active confirmed 9642969 Problem Change in bowel function (R19.4) Active confirmed 79981473 Problem Abnormal upper gastrointestinal barium series (R93.3) Active confirmed 702789235 Problem Abnormal CT scan, colon (R93.3) Active confirmed 783764745 Problem Gastroenteritis (K52.9) Active confirmed 76953922 Problem Diarrhea, unspecified type (R19.7) Active confirmed 30204080 PLAN OF TREATMENT Pending Test Test Name Order Date STOOL WBC 11/30/2020 CULTURE, STOOL 11/30/2020 C DIFFICILE RFLX PCR 11/30/2020 Future Test Test Name Order Date UPPER GI ENDOSCOPY 04/01/2015 COLONOSCOPY 04/01/2015 Insurance Providers Payer Name Payer Address Payer Phone Subscriber Number Group Number Insured Name Patient Relationship to Insured Coverage Start Date Coverage End Date MEDICARE OF [place] [address] [place] [address] [id number] IRINA BUSH Self - patient is the insured [employer] [address] [place] [address] [id number] IRINA BUSH Self - patient is the insured MEDICAL (GENERAL) HISTORY Medical History History ICD Code Colonoscopy 11-08-2006--negat aicha except for sigmoid divertciulosis and internal hemorrhoids Migraines Denies [place],DM,CVA,Lung disease,renal dise ase HTN Hyperlipidemia Depression/anxiety Hypothyroidism UTI Sigmoid diverticulitis in 02/[address] scan Negative abdominal U/S in 10/2014 IBS Negative colonoscopy in 2016. Biopsies w ere negative for microscopic colitis Upper endoscopy in 2015 was negative for esophagitis, Mendez's esophagus, H. pylori, and celiac disease Negative abdominal ultrasound in June of 2020 Surgical History Surgery Date(Month/Year) tonsillectomy
== END 2024-01-11 10:42 | disposition home or self-care (01) ==
LOC: HO.HGS 10:09
PROVIDERS: PCP Internal Medicine Medical Oncology; Visit Provider Surgery
DX: K80.50 Calculus of bile duct without cholangitis or cholecystitis without obstruction (principal)
CPT/HCPCS: 99204

== ENCOUNTER → 2024-01-11 10:09 | Outpatient (BNVA) | payer MEDICARE, SELFPAY | PROVIDERS: PCP Internal Medicine Medical Oncology; Visit Provider Surgery | DX: K80.50 Calculus of bile duct without cholangitis or cholecystitis without obstruction (principal) | CPT/HCPCS: 99202 ==

== ENCOUNTER 2024-05-20 08:33 | Outpatient (REF) | payer MEDICARE, SELFPAY ==
[2024-05-20 10:36] LABS: MANUAL DIFF FLAG NO
[2024-05-20 10:47] LABS: Basophils Percent Auto 0.6 % (0-2); Eosinophils Absolute Auto 0.1 X10*3/uL (0.0-0.4); Eosinophils Percent Auto 1.9 % (0-4); Hematocrit 35.3 % (37.0-47.0); Hemoglobin 12.2 g/dl (12.0-16.0); Imm Gran Abs Auto 0.02 X10*3/uL (0.00-0.03); Imm Gran Pct Auto 0.3 % (0.0-0.4); Lymphocytes Absolute Auto 1.9 X10*3/uL (1.2-4.9); Lymphocytes Percent Auto 27.3 % (20-40); Mean Corpuscular HGB Conc 34.6 g/dl (31.0-35.0); Mean Corpuscular Hemoglobin 33.9 pg (27.0-33.0); Mean Corpuscular Volume 98.1 fL (80.0-98.0); Mean Platelet Volume 11.1 fL (9.4-12.3); Monocytes Absolute Auto 0.5 X10*3/uL (0.1-1.2); Monocytes Percent Auto 7.6 % (2-11); Neutrophils Absolute Auto 4.3 x10*3/uL (2.0-8.3); Neutrophils Percent Auto 62.3 % (45-73); Platelet Count 251 X10*3/uL (160-400); Red Cell Distribution Width 11.9 % (11.0-16.0); White Blood Count 6.9 X10*3/uL (4.8-10.8)
[2024-05-20 11:12] LABS: Alanine Aminotransferase 18 U/L (0-31); Alkaline Phosphatase 69 U/L (39-117); Anion Gap 11 (12-20); Aspartate Amino Transferase 19 U/L (5-31); Bilirubin Total 0.5 mg/dL (0.0-1.0); Blood Urea Nitrogen 13 mg/dL (9-16); Calcium 9.8 mg/dL (8.4-10.2); Carbon Dioxide 30 mmol/L (22-29); Chloride 95 mmol/L (96-108); Cholesterol 165 mg/dL (<200); Estimated Glomerular Filt Rate > 60; Glucose Fasting 98 mg/dL (60-99); HDL Cholesterol 58 mg/dL (>40); LDL Cholesterol Calculated 84 mg/dL (<100); Potassium 3.6 mmol/L (3.3-5.1); Sodium 132 mmol/L (135-145); Total Protein 6.4 g/dL (6.5-8.0); Triglycerides 118 mg/dL (<150)
[2024-05-20 11:29] LABS: Free T4 (Free Thyroxine) 1.29 ng/dL (0.71-1.85); Thyroid Stimulating Hormone 0.62 uIU/mL (0.32-4.0)
== END 2024-05-20 08:34 | disposition home or self-care (01) ==
LOC: HO.HMGCLDS 08:33
PROVIDERS: PCP Internal Medicine Medical Oncology; Visit Provider Internal Medicine Medical Oncology
DX: E03.9 Hypothyroidism, unspecified (principal); E78.5 Hyperlipidemia, unspecified; E66.3 Overweight
CPT/HCPCS: 36415; 80053; 80061; 84439; 84443; 85025

== ENCOUNTER 2024-08-19 08:00 | Outpatient (REF) | payer MEDICARE, SELFPAY ==
[2024-08-19 10:44] LABS: MANUAL DIFF FLAG NO
[2024-08-19 10:49] LABS: Hematocrit 35.4 % (37.0-47.0); Hemoglobin 12.2 g/dl (12.0-16.0); Imm Gran Abs Auto 0.02 X10*3/uL (0.00-0.03); Imm Gran Pct Auto 0.3 % (0.0-0.4); Lymphocytes Absolute Auto 2.1 X10*3/uL (1.2-4.9); Mean Corpuscular HGB Conc 34.5 g/dl (31.0-35.0); Mean Corpuscular Hemoglobin 33.4 pg (27.0-33.0); Mean Corpuscular Volume 97.0 fL (80.0-98.0); NRBC Abs Auto 0.000 X10*3/uL (0.0-0.012); NRBC Pct Auto 0.0 /100WBC (0.0-0.2); Platelet Count 276 X10*3/uL (160-400); Red Blood Count 3.65 X10*6/uL (4.20-5.50); White Blood Count 6.4 X10*3/uL (4.8-10.8)
[2024-08-19 11:07] LABS: Alanine Aminotransferase 15 U/L (0-31); Albumin Level 4.2 g/dL (3.5-5.0); Alkaline Phosphatase 64 U/L (39-117); Anion Gap 11 (12-20); Aspartate Amino Transferase 22 U/L (5-31); Blood Urea Nitrogen 12 mg/dL (9-16); Calcium 9.8 mg/dL (8.4-10.2); Carbon Dioxide 30 mmol/L (22-29); Chloride 95 mmol/L (96-108); Cholesterol 156 mg/dL (<200); Estimated Glomerular Filt Rate > 60; HDL Cholesterol 54 mg/dL (>40); Potassium 4.1 mmol/L (3.3-5.1); Sodium 132 mmol/L (135-145); Total Protein 6.5 g/dL (6.5-8.0); Triglycerides 107 mg/dL (<150)
[2024-08-19 11:32] LABS: Free T4 (Free Thyroxine) 1.09 ng/dL (0.71-1.85); Thyroid Stimulating Hormone 0.60 uIU/mL (0.32-4.0)
== END 2024-08-19 08:01 | disposition home or self-care (01) ==
LOC: HO.HMGCLDS 08:00
PROVIDERS: PCP Internal Medicine Medical Oncology; Visit Provider Internal Medicine Medical Oncology
DX: E66.3 Overweight (principal); E03.9 Hypothyroidism, unspecified; E78.5 Hyperlipidemia, unspecified
CPT/HCPCS: 36415; 80053; 80061; 84439; 84443; 85025

== ENCOUNTER 2024-09-11 10:19 | Outpatient (REF) | payer MEDICARE, SELFPAY | END 2024-09-11 10:20 | disposition home or self-care (01) | LOC: HO.MAMMO 10:19 | PROVIDERS: PCP Internal Medicine Medical Oncology; Visit Provider Internal Medicine Medical Oncology | DX: Z12.31 Encounter for screening mammogram for malignant neoplasm of breast (principal) | CPT/HCPCS: 77063; 77067 ==

== ENCOUNTER → 2024-09-11 10:30 | Outpatient (BNV) | payer MEDICARE, SELFPAY | PROVIDERS: PCP Internal Medicine Medical Oncology; Visit Provider Radiology Body Imaging | DX: Z12.31 Encounter for screening mammogram for malignant neoplasm of breast (principal) | CPT/HCPCS: 77063; 77067 ==

== ENCOUNTER 2024-11-22 07:55 | Outpatient (REF) | payer MEDICARE, SELFPAY ==
[2024-11-22 10:28] LABS: MANUAL DIFF FLAG NO
[2024-11-22 10:36] LABS: Hematocrit 35.6 % (37.0-47.0); Hemoglobin 12.2 g/dl (12.0-16.0); Imm Gran Abs Auto 0.08 X10*3/uL (0.00-0.03); Imm Gran Pct Auto 1.0 % (0.0-0.4); Lymphocytes Absolute Auto 1.9 X10*3/uL (1.2-4.9); Mean Corpuscular HGB Conc 34.3 g/dl (31.0-35.0); Mean Corpuscular Hemoglobin 33.7 pg (27.0-33.0); Mean Corpuscular Volume 98.3 fL (80.0-98.0); NRBC Abs Auto 0.000 X10*3/uL (0.0-0.012); NRBC Pct Auto 0.0 /100WBC (0.0-0.2); Platelet Count 273 X10*3/uL (160-400); Red Blood Count 3.62 X10*6/uL (4.20-5.50); White Blood Count 8.3 X10*3/uL (4.8-10.8)
[2024-11-22 13:16] LABS: Free T4 (Free Thyroxine) 1.21 ng/dL (0.71-1.85); Thyroid Stimulating Hormone 0.89 uIU/mL (0.32-4.0)
[2024-11-22 13:18] LABS: Anion Gap 11 (12-20)
[2024-11-22 13:23] LABS: Alanine Aminotransferase 18 U/L (0-31); Albumin Level 4.2 g/dL (3.5-5.0); Alkaline Phosphatase 72 U/L (39-117); Aspartate Amino Transferase 23 U/L (5-31); Blood Urea Nitrogen 11 mg/dL (9-16); Calcium 9.6 mg/dL (8.4-10.2); Carbon Dioxide 31 mmol/L (22-29); Chloride 96 mmol/L (96-108); Cholesterol 159 mg/dL (<200); Estimated Glomerular Filt Rate > 60; HDL Cholesterol 55 mg/dL (>40); Potassium 4.2 mmol/L (3.3-5.1); Sodium 134 mmol/L (135-145); Total Protein 6.6 g/dL (6.5-8.0); Triglycerides 100 mg/dL (<150)
[2024-11-23 09:13] LABS: CA-125 11 U/mL (<35)
== END 2024-11-22 07:56 | disposition home or self-care (01) ==
LOC: HO.HMGCLDS 07:55
PROVIDERS: PCP Internal Medicine Medical Oncology; Visit Provider Internal Medicine Medical Oncology
DX: E66.3 Overweight (principal); E78.5 Hyperlipidemia, unspecified; E03.9 Hypothyroidism, unspecified
CPT/HCPCS: 36415; 80053; 80061; 84439; 84443; 85025; 86304

== ENCOUNTER 2025-02-05 11:24 | Emergency (ER) | payer MEDICARE, SELFPAY ==
--- NOTE | ~2025-02-05 | XR_ITS ---
XR KNEE JESUS 2V HISTORY: Fall on ice, patellar tenderness. COMPARISON: No prior. TECHNIQUE: AP and lateral views of each knee were obtained. FINDINGS: RIGHT KNEE: No fracture, dislocation, or suspicious bone lesion. Joint spaces are normal in all 3 compartments. Normal patellar alignment. No abnormal patellar tilt. No evidence of joint effusion. There is mild prepatellar soft tissue swelling. LEFT KNEE: No fracture, dislocation, or suspicious bone lesion. Joint spaces are normal in all 3 compartments. Normal patellar alignment. No abnormal patellar tilt. No evidence of joint effusion. There is mild prepatellar soft tissue swelling. XR/XR Knee Jesus 1or 2V IMPRESSION: 1. No fracture or dislocation of either knee. The patella appear intact. 2. Bilateral prepatellar soft tissue swelling left greater than right. Electronically signed by: Miguel Carlson MD 02/05/2025 12:45 PM YUR[facility]IA
--- NOTE | ~2025-02-05 | CT_ITS ---
EXAMINATION: CT CERVICAL SPINE WITHOUT IV CONTRAST HISTORY: fall with head strike. TECHNIQUE: Helical CT of the cervical spine was performed per standard departmental protocol. Coronal and sagittal reformatted images were also evaluated. One or more of the following techniques was used for dose reduction: Automated exposure control, adjustment of the mA and/or kV according to patient size, use of iterative reconstruction technique. DLP: mGy-cm COMPARISON: There are no prior studies available for comparison. FINDINGS: CERVICAL SPINE: There is curvature of the lower cervical spine to the right and proximal thoracic spine to the left. There is mild retrolisthesis of C5 with respect to C6 measuring 2 mm. Bone alignment is otherwise normal. There is a nondisplaced fracture of the left inferior endplate of the C6 vertebral body. No other fracture. There is degenerative spondylosis degenerative disc disease from C3-4 to C6-7. There is bilateral multilevel facet arthritis. There are degenerative changes at the C1 dens articulation. BRAIN: The visualized portion of the brain is unremarkable. SINUSES: The mastoid air cells and middle ear cavities are unremarkable. LUNG APICES: Mild biapical pleural and parenchymal scarring. SOFT TISSUES: The visualized paraspinal soft tissues are unremarkable. CT/CT cervical spine wo IV con IMPRESSION: Nondisplaced fracture of the left inferior endplate of the C6 vertebral body. No other fracture is seen. Mild posterior subluxation of C5 with respect to C6 measuring 2 mm. Mild scoliosis of the cervicothoracic spine and degenerative changes. Electronically signed by: Katja Pedraza MD 02/05/2025 12:42 PM [facility]
--- NOTE | ~2025-02-05 | CT_ITS ---
EXAMINATION: CT HEAD AND FACIAL BONES WITHOUT CONTRAST CLINICAL INFORMATION: Fall, ecchymosis. COMPARISON: None TECHNIQUE: Contiguous axial imaging was performed from the skull base to vertex, as well as the maxillofacial bones/mandible without intravenous administration of contrast. Multiplanar reformatted imaging was constructed from the axial data set. This CT examination was performed using dose optimization techniques as appropriate, variously including the following: *Automated exposure control *Adjustment of mA and/or kV according to patient size (this includes techniques or standardized protocols for targeted exams where dose is matched to indication/reason for exam; i.e. extremities or head) *Use of iterative reconstruction technique CT HEAD: There is no evidence of intracranial hemorrhage or extra-axial fluid collection. There is no mass effect, or edema. No CT evidence of acute territorial infarct. Ventricles, sulci, and cisterns are normal in size and configuration for patient age. No hydrocephalus. No midline shift. Negative hyperdense MCA sign. Negative insular ribbon sign. Mild scattered white matter hypodensities in keeping with mild small vessel ischemic changes. Normal pituitary. Globes and orbital contents image normally. There are bilateral lens replacements. There is left frontal scalp soft tissue swelling and laceration. Remainder of the extracranial soft tissues appear normal with the exception of the below. The calvarium and skull base are intact without fracture. CT MAXILLOFACIAL BONES: The mandible is intact without fracture. The TM joints are normally oriented. There are bilateral comminuted nasal bone fractures with mild displacement. This involves the most anterior nasal septum. There is a minimally displaced fracture of the left maxillary spine. The right maxillary spine, nasal process, maxilla, orbits, zygomatic arches, pterygoid plates, and sphenoid bone are intact without fracture. No significant nasal septal deviation. Tiny air-fluid levels within the bilateral maxillary sinuses. Paranasal sinuses otherwise normally pneumatized. No paranasal sinus fractures. The mastoids and tympanic cavities are normally aerated. Imaged maxillofacial/neck soft tissues demonstrate soft tissue swelling and laceration overlying the nasion, glabella, and left frontal scalp. CT/CT facial bones wo IV con IMPRESSION: 1. Comminuted bilateral nasal bone fractures with mild displacement. This involves the anterior nasal septum. 2. Left maxillary spine fracture with minimal displacement. 3. Soft tissue swelling and laceration overlying the nasion, glabella, and left frontal scalp. 4. No calvarial or skull base fracture. 5. No intracranial hemorrhage or mass effect. Electronically signed by: Miguel Carlson MD 02/05/2025 12:42 PM [facility]
--- NOTE | 2025-02-05 11:33 | ED_ITS ---
HPI - General Adult General Chief complaint: Fall Stated complaint: fall/slip ice,head lac, +c neg thinner Time Seen by Provider: 02/05/25 11:33 Source: patient, family, EMS, RN notes reviewed and old records reviewed Mode of arrival: EMS Limitations: no limitations History of Present Illness ED Provider: Salvatore HPI narrative: Patient is an 84-year-old female with past medical history of IBS presenting to the emergency department via EMS after a slip and fall on ice in her driveway. She denies loss of consciousness and is not anticoagulated. She states that she fell directly onto her knees and face. States that she was able to crawl to her front steps where a neighbor saw her and notified her who called 911. She reports that she remembers all events. Complains of most pain to left side of forehead, also bilateral knee pain. Denies loose teeth. Unsure last Tdap. Arrives in C-collar applied by EMS. MD complaint: head injury Related Data Home Medications ?Medication ?Instructions ?Recorded ?Confirmed citalopram 20 mg tablet 20 mg PO DAILY 08/20/21 levothyroxine 88 mcg tablet 88 mcg PO DAILY 08/20/21 metoprolol tartrate 50 mg tablet mg PO 08/20/21 omeprazole 20 mg capsule,delayed 20 mg PO DAILY release simvastatin 20 mg tablet 20 mg PO BEDTIME 08/20/21 calcium 600 mg (as 1 tab PO DAILY 10/28/21 carbonate)-vitamin D3 5 mcg (200 unit) tablet chlorthalidone 25 mg tablet 25 mg PO DAILY 01/11/24 ondansetron HCl 8 mg tablet 8 mg PO TID 01/11/24 paroxetine HCl 30 mg tablet 30 mg PO DAILY 01/11/24 Previous Rx's ?Medication ?Instructions ?Recorded loperamide 2 mg capsule 2 mg PO QID PRN loose stool #30 11/07/20 caps dicyclomine 20 mg tablet 20 mg PO QID PRN abdominal pain 11/10/20 #20 tabs cyclobenzaprine 10 mg tablet 10 mg PO BEDTIME #14 tabs 08/20/21 losartan 50 mg tablet 50 mg PO DAILY #30 tabs 10/07 10/29 Allergies Allergy/AdvReac Type Severity Reaction Status Date / Time fentanyl Allergy Unknown Patient Verified 02/05/25 11:45 stated her heart stopped morphine Allergy Unknown Unknown Verified 02/05/25 11:45 Review of Systems Review of Systems: as per hpi Yes all other systems are reviewed and are negative Constitutional: Constitutional: Reports as per H[facility] Past Medical History Medical History Biliary colic Diverticulitis IBS (irritable bowel syndrome) Social History Social History Alcohol intake: never Patient Tobacco Use Status: Former Tobacco user Smoked in Last 30 Days: No Use of substances other than those prescribed or required for medical reasons: No Advance Directives: No Advance Directives Information Provided: Yes Do you have a plan to hurt others: No Plan Current occupational status: retired Physical Exam ED Vital Signs: Vital Signs - 24 hr 02/05/25 11:41 Temperature 97.7 F Pulse Rate 60 Respiratory Rate 17 Blood Pressure 160/73 H Pulse Oximetry 99 Oxygen Delivery Method Room Air BMI result Body Mass Index 26.6 Vital signs have been reviewed and appear to be correct. Blood pressure elevated. Heart rate normal. Respiratory rate normal. Temperature normal. Oxygen saturation normal. Const General: cooperative, healthy appearing, no acute distress, alert and awake Nutritional Appearance: average body habitus Orientation/consciousness: oriented to person, oriented to place, oriented to time and patient oriented x3 Limitations: no limitations HENMT Head: Yes normocephalic and Yes laceration (left forehead) Ears: hearing grossly normal bilaterally and external ears normal General nose exam: Normal external nose present, Normal nasal mucous membranes and turbinates present, Normal septum present, Nasal discharge present bloody (dried) bilateral and Other nasal findings present (tenderness) Face and sinus: Yes ecchymosis (upper lip) and Yes other (swelling and tenderness upper lip) Mouth: tongue normal, oropharynx normal, moist mucous membranes and lip abnormal upper swelling Throat: Yes uvula midline Eyes Pupils: Equal, round and reactive pupils present Neck Neck: Yes normal visual inspection and Yes supple Resp Effort & Inspection: normal respiratory effort and able to speak in complete sentences Auscultation: clear to auscultation bilaterally Cardio Rate: regular rate Rhythm: regular rhythm Heart sounds: S1 normal heart sound present and S2 normal heart sound present GI Palpation (GI): Soft to palpation and nontender Auscultation: normoactive bowel sounds General: Yes no CVA tenderness Back/Spine/Pelvis Back: no CVA tenderness Cervical Spine: collar present Thoracic/Lumbar Spine: thoracic and lumbar spine normal to inspection, No thoracic spinal tenderness and No lumbar spinal tenderness Pelvis: no pain with anterior-posterior compression and no pain with lateral compression Skin General skin exam: elasticity normal and turgor normal Neuro General: oriented to person, oriented to place, oriented to time, patient oriented x3, moves all extremities, Normal light touch and pain sensation, no focal motor deficits, CN's II-XI intact bilaterally and deep tendon reflexes 2+ bilaterally Cranial nerves: Yes Equal, round and reactive pupils present Cognition (Neuro): normal cognition Motor exam (neuro): 5/5 motor strength present throughout, Normal motor muscle tone present throughout and Motor abnormalities not present Extrem General: Yes full ROM, Yes no pedal edema and Yes no calf tenderness Right lower extremity: knee Details: tenderness Location: of the patella and of the tibial tuberosity, swelling, normal ROM, knee ligament exam normal and ecchymosis knee anterior Left lower extremity: knee Details: tenderness, swelling Location: of the patella, normal ROM, knee ligament exam normal and ecchymosis knee anterior Psych Mental Status: mental status grossly normal Affect: normal affect Thought process: Normal thought process present Medical Decision Making Medical Decision Making MDM Narrative: Patient is an 84-year-old female with past medical history of IBS presenting to the emergency department via EMS after a slip and fall on ice in her driveway. On exam patient is awake, A+Ox3, VS WNL, afebrile, normal neurological exam without focal deficits, physical exam findings as above. Given reported symptoms and physical exam findings, initial differential includes but is not limited to ICH, skull, cervical vertebral fracture or subluxation, facial bones fracture versus contusion, forehead laceration, bilateral knee contusions versus fracture. Tdap updated. Patient medicated with IV Tylenol. CT C-spine notable for nondisplaced fracture of C6 vertebral body. CT head is without evidence of ICH or skull fracture. CT facial bones notable for bilateral nasal bone fracture as well as maxillary spine fracture. Bilateral knee x-rays are without evidence of acute fracture. My interpretation is in agreement with the radiologist's interpretation. Case discussed with trauma attending at [facility], Dr. Thomas, who accepts patient as an ED to ED transfer for trauma consult. Patient and son updated on results and plan. They are agreeable to this. C- collar remains in place. Differential Diagnosis Differential Diagnoses: The differential diagnosis associated with the presentation includes as per [facility] Admission/Observation Consideration of admission/observation: Escalation of care including admission/observation considered transferred for higher level of care Consult Healthcare Provider Management of the patient was discussed with: Sewing Room Supervisor (Dr. Thomas, trauma attending at [facility]) Independent Interpretation I performed an independent interpretation of an: Plain X-Ray and CT Scan Interpretation: CT C-spine notable for nondisplaced fracture of C6 vertebral body. CT head is without evidence of ICH or skull fracture. CT facial bones notable for bilateral nasal bone fracture as well as maxillary spine fracture. Bilateral knee x-rays are without evidence of acute fracture. Radiology Impression Discussion of test interpretation with radiology: I have reviewed the radiologi st's reading. Radiologist Impression: CT/CT cervical spine wo IV con IMPRESSION: Nondisplaced fracture of the left inferior endplate of the C6 vertebral body. No other fracture is seen. Mild posterior subluxation of C5 with respect to C6 measuring 2 mm. Mild scoliosis of the cervicothoracic spine and degenerative changes. CT/CT facial bones wo IV con IMPRESSION: 1. Comminuted bilateral nasal bone fractures with mild displacement. This involves the anterior nasal septum. 2. Left maxillary spine fracture with minimal displacement. 3. Soft tissue swelling and laceration overlying the nasion, glabella, and left frontal scalp. 4. No calvarial or skull base fracture. 5. No intracranial hemorrhage or mass effect. CT/CT head/brain wo IV con IMPRESSION: 1. Comminuted bilateral nasal bone fractures with mild displacement. This involves the anterior nasal septum. 2. Left maxillary spine fracture with minimal displacement. 3. Soft tissue swelling and laceration overlying the nasion, glabella, and left frontal scalp. 4. No calvarial or skull base fracture. 5. No intracranial hemorrhage or mass effect. XR/XR Knee Jesus 1or 2V IMPRESSION: 1. No fracture or dislocation of either knee. The patella appear intact. 2. Bilateral prepatellar soft tissue swelling left greater than right. Independent Historian Clinical information obtained from an independent historian. History obtained from or confirmed by: Other (son) External Record Review External record reviewed: Inpatient record, Office record and Outpatient record Critical Care Time Critical Care Time Critical Care Time: Yes Total Critical Care Time: 49 Attestation: I have personally provided critical care time exclusive of time spent on separately billable procedures. Time includes review of lab data, radiology results, discussion with consultants, and monitoring for potential decompensation. Intervention performed as documented. Discharge Plan Discharge Clinical Impression: C6 cervical fracture, Fractured nasal bones, Contusion of knee, left, Contusion of knee, right, Fall due to slipping on ice or snow Patient Disposition: [facility] Transfer Details: to [facility] ED for trauma consult Prescriptions: No Action dicyclomine 20 mg tablet 20 mg PO QID PRN (Reason: abdominal pain) Qty: 20 0RF losartan 50 mg tablet 50 mg PO DAILY Qty: 30 0RF loperamide 2 mg capsule 2 mg PO QID PRN (Reason: loose stool) Qty: 30 0RF omeprazole 20 mg capsule,delayed release(DR/EC) 20 mg PO DAILY simvastatin 20 mg tablet 20 mg PO BEDTIME levothyroxine 88 mcg tablet 88 mcg PO DAILY citalopram 20 mg tablet 20 mg PO DAILY metoprolol tartrate 50 mg tablet PO cyclobenzaprine 10 mg tablet 10 mg PO BEDTIME Qty: 14 0RF calcium carbonate-vitamin D3 600 mg-5 mcg (200 unit) tablet 1 tab PO DAILY paroxetine HCl 30 mg tablet 30 mg PO DAILY chlorthalidone 25 mg tablet 25 mg PO DAILY ondansetron HCl 8 mg tablet 8 mg PO TID Print Language: Danish
[2025-02-05 11:39] VITALS: BP 190/84; PULSE 58; O2SAT 97
[2025-02-05 11:41] VITALS: BP 160/73; PULSE 60; RESP 17; TEMP 36.5; O2SAT 99; BMI 26.6
[2025-02-05] MEDS: Diphth,Pertus(ACell),Tet Adult 0.5 ML SYRINGE IM (13:22)
[2025-02-05 13:28] VITALS: BP 180/78; PULSE 60; RESP 18; O2SAT 98
[2025-02-05 14:15] VITALS: BP 169/71; PULSE 66; RESP 14; O2SAT 97
--- NOTE | 2025-02-05 14:28 | PC.NURSE ---
attempted to call [facility] ED x2 with no answer. Director Rona made aware of this RN unable to get ahold for nurse to nurse report.
[2025-02-05 14:37] VITALS: BP 169/71; PULSE 66; RESP 14; TEMP 36.5; O2SAT 97
--- NOTE | 2025-02-05 14:37 | PC.NURSE ---
EMS here to bring pt to [facility]
--- NOTE | 2025-02-05 14:48 | PC.NURSE ---
pt en route to [facility] - report not given, Rona Director aware
--- NOTE | 2025-02-05 15:04 | PC.NURSE ---
report given to Misha MEYERS [facility]
== END 2025-02-05 14:49 | disposition short-term general hospital (02) ==
PROVIDERS: Emergency Provider Emergency Medicine Emergency Medical Services; PCP Internal Medicine Medical Oncology
DX: S12.500A Unspecified displaced fracture of sixth cervical vertebra, initial encounter for closed fracture (principal); S89.91XA Unspecified injury of right lower leg, initial encounter; S89.92XA Unspecified injury of left lower leg, initial encounter; S02.2XXA Fracture of nasal bones, initial encounter for closed fracture; R51.9 Headache, unspecified; M25.562 Pain in left knee; M25.561 Pain in right knee; W00.0XXA Fall on same level due to ice and snow, initial encounter; Y93.89 Activity, other specified; Y92.89 Other specified places as the place of occurrence of the external cause; Y99.8 Other external cause status; Z79.899 Other long term (current) drug therapy; Z87.19 Personal history of other diseases of the digestive system; Z23 Encounter for immunization
CPT/HCPCS: 70450; 70486; 72125; 73560; 90471; 90715; 96365; 99284; 99285; J0131

== ENCOUNTER → 2025-02-05 11:32 | Outpatient (BNV) | payer MEDICARE, SELFPAY | PROVIDERS: Emergency Provider Emergency Medicine Emergency Medical Services; Visit Provider Radiology Diagnostic Radiology | DX: S12.501A Unspecified nondisplaced fracture of sixth cervical vertebra, initial encounter for closed fracture (principal); S02.2XXA Fracture of nasal bones, initial encounter for closed fracture; S02.40DA Maxillary fracture, left side, initial encounter for closed fracture; M79.89 Other specified soft tissue disorders; Z04.3 Encounter for examination and observation following other accident | CPT/HCPCS: 70450; 70486; 72125; 73560 ==